=== PATIENT | female | born 1945 | race Caucasian/White ===

== ENCOUNTER → 2017-12-26 12:44 | Outpatient (CLI) | payer OTHER, SELFPAY ==
[2017-12-26 13:21] LABS: Add Manual Diff / Slide Review NO; Basophils Percent Auto 0.5 % (0-2); Eosinophils Percent Auto 0.8 % (2-4); Hematocrit 46.6 % (36-46); Hemoglobin 15.9 g/dL (12.0-16.0); Lymphocytes Percent Auto 21.2 % (25-40); Mean Corpuscular HGB Conc 34.2 % (30-36); Mean Corpuscular Hemoglobin 30.6 PG (26-34); Mean Corpuscular Volume 89.5 fL (80-100); Monocytes Percent Auto 8.3 % (3-14); Neutrophils Absolute Auto 6400 /uL (3000-5900); Neutrophils Percent Auto 69.2 % (50-75); Platelet Count 334 X10^3/uL (150-400); Red Cell Distribution Width 13.3 % (11.6-14.8); White Blood Cell Count 9.3 X10^3/uL (4.5-11.0)
[2017-12-26 13:37] LABS: Alanine Aminotransferase 26 IU/L (9-52); Albumin 4.7 g/dL (3.5-5.0); Albumin Globulin Ratio 1.5 (1.0-2.8); Alkaline Phosphatase 67 U/L (38-126); Aspartate Aminotransferase 19 IU/L (14-36); BUN Creatinine Ratio 24.3 (6-22); Bilirubin Total 0.5 mg/dL (0.2-1.3); Blood Urea Nitrogen 17 mg/dL (7-17); Calcium 9.8 mg/dL (8.4-10.2); Carbon Dioxide 31 mmol/L (22-32); Chloride 92 mmol/L (98-107); Estimated Glomerular Filt Rate > 60.0 mL/min (>60); Globulin 3.2 g/dL (1.7-4.1); Glucose 104 mg/dL (80-110); HEMOLYSIS < 15 (0-50); Potassium 4.3 mmol/L (3.4-5.1); Sodium 136 mmol/L (137-145); Total Protein 7.9 g/dL (6.3-8.2)
[2017-12-26 14:19] LABS: TSH w/ Reflex to FT4 0.78 uIU/mL (0.47-4.68)
== END ==
PROVIDERS: PCP Family Medicine; Visit Provider Family Medicine
DX: R53.83 Other fatigue (principal)
CPT/HCPCS: 36415; 80053; 84443; 85025

== ENCOUNTER → 2018-01-02 09:38 | Outpatient (CLI) | payer OTHER, SELFPAY ==
--- NOTE | 2018-01-02 09:41 | DI.CT.S_ITS ---
PROCEDURE: CT ABDOMEN PELVIS W CON INDICATIONS: ABDOMINAL PAIN TECHNIQUE: After the administration of oral and intravenous contrast, 5 mm thick sections acquired from the diaphragms to the symphysis. 5 mm thick coronal and sagittal reformats were performed. For radiation dose reduction, the following was used: automated exposure control, adjustment of mA and/or kV according to patient size. COMPARISON: [facility], CT, CT ABD PELVIS W CON, 08/26/2016, 4:43. FINDINGS: Image quality: Excellent. ABDOMEN: Lung bases: Lung bases are clear. Heart size is normal. Solid organs: Liver is normal in size and enhancement. Gallbladder is surgically absent. Previously seen extrahepatic biliary ductal dilatation has decreased slightly. Common bile duct now measures 12 mm short axis. There is a new 9 mm high density focus within the distal common bile duct. Pancreas enhances normally. New mild pancreatic ductal dilatation within the head and neck, measuring 4 mm in diameter. Spleen is normal in size and enhancement. No adrenal nodules. Kidneys are normal in size and enhancement, without hydronephrosis. Peritoneum and bowel: Stomach, small bowel, and colon loops are normal in caliber and wall thickness. No free fluid or air. Nodes and vessels: No retroperitoneal or mesenteric adenopathy. Aorta and inferior vena cava are normal in caliber. Moderate celiac artery origin stenosis. High grade superior mesenteric artery origin stenosis. Inferior mesenteric artery origin not well seen. Miscellaneous: No ventral hernias. PELVIS: Genitourinary: Bladder wall thickness is normal. Miscellaneous: No inguinal hernias or adenopathy. Bones: No suspicious bony lesions. No acute vertebral body compression fractures. Multilevel mild to moderate chronic appearing wedging within the lumbar and lower thoracic spine is present. IMPRESSION: 1. Findings suspicious for distal common bile duct calculus associated with new mild pancreatic ductal dilatation. Biliary ductal location is also present. ERCP could be performed for further assessment and treatment, if clinically indicated. 2. High-grade superior mesenteric artery origin stenosis. Inferior mesenteric artery not well-seen. 3. Findings discussed with Dr. Mcclellan on 01.02.18 at 1201 hrs. Dictated by: Nohemi Sprague M.D. on 01/02/2018 at 11:55 Approved by: Nohemi Sprague M.D. on 01/02/2018 at 12:02
== END ==
PROVIDERS: Family Provider Family Medicine; PCP Family Medicine; Visit Provider Family Medicine
DX: R10.9 Unspecified abdominal pain (principal); K55.1 Chronic vascular disorders of intestine
CPT/HCPCS: 74177; Q9967

== ENCOUNTER → 2018-04-07 10:30 | Outpatient (CLI) | payer OTHER, SELFPAY ==
[2018-04-07 12:58] LABS: Estimated Glomerular Filt Rate > 60.0 mL/min (>60)
== END ==
PROVIDERS: Family Provider Family Medicine; PCP Family Medicine; Visit Provider Internal Medicine Gastroenterology
DX: R19.8 Other specified symptoms and signs involving the digestive system and abdomen (principal)
CPT/HCPCS: 36415; 82565

== ENCOUNTER → 2018-05-07 11:18 | Outpatient (CLI) | payer OTHER, SELFPAY ==
[2018-05-07 12:57] LABS: Alanine Aminotransferase 73 IU/L (9-52); Albumin 4.5 g/dL (3.5-5.0); Albumin Globulin Ratio 1.8 (1.0-2.8); Alkaline Phosphatase 93 U/L (38-126); Aspartate Aminotransferase 23 IU/L (14-36); Bilirubin Total 0.6 mg/dL (0.2-1.3); Bilirubin Unconjugated 0.3 mg/dL (0.0-1.1); Globulin 2.5 g/dL (1.7-4.1); HEMOLYSIS < 15 (0-50)
== END ==
PROVIDERS: Family Provider Family Medicine; PCP Family Medicine; Visit Provider Internal Medicine Gastroenterology
DX: R94.5 Abnormal results of liver function studies (principal)
CPT/HCPCS: 36415; 80076

== ENCOUNTER → 2018-07-23 14:43 | Outpatient (CLI) | payer OTHER, SELFPAY ==
--- NOTE | 2018-07-23 | DI.RAD.S_ITS ---
PROCEDURE: XR CHEST 2V INDICATIONS: DYSPENEA TECHNIQUE: 2 views of the chest were acquired. COMPARISON: [facility], CR, XR CHEST 1VW (PORTABLE), 08/31/2016, 5:19. [facility], CR, XR CHEST 1VW (PORTABLE), 09/02/2016, 4:26. [facility], CR, XR CHEST 1VW (PORTABLE), 09/04/2016, 4:41. [facility], CR, XR CHEST 1VW (PORTABLE), 09/05/2016, 5:09. FINDINGS: Surgical changes and devices: None. Lungs and pleura: There is chronic left hemidiaphragmatic elevation. There is left basilar atelectasis. Diffuse interstitial prominence. Possible small left pleural effusion. No pneumothorax. Mediastinum: Mediastinal contours are normal. Heart size is normal. Bones and chest wall: No suspicious bony abnormalities. Soft tissues appear unremarkable. There is osteopenia. Mild compression fractures are noted in the lower thoracic and upper lumbar spine. IMPRESSION: 1. Chronic interstitial lung disease is suspected with diffuse interstitial prominence. 2. Left basilar atelectasis. 3. Possible small left perfusion. Dictated by: Yumi Hernández M.D. on 07/23/2018 at 17:12 Approved by: Yumi Hernández M.D. on 07/23/2018 at 17:16
[2018-07-23 17:18] LABS: PCO2 ABG 37.3 mmHg (35-45); pH ABG 7.43 (7.35-7.45)
[2018-07-23 17:19] LABS: Fractionated Inspired Oxygen 0.21; HCO3 ABG 25 mmol/L (22-26); Oxygen Saturation ABG 97 % (95-100); PO2 ABG 88 mmHg (80-100); TCO2 ABG 26 mmol/L (21-31)
--- NOTE | 2018-07-24 16:06 | PM.PFT.1 ---
Pulmonary Function Test Referral & Results Date Patient Seen: 07/23/18 Requesting provider: Chris Cisse Indication: COPD Results: The spirometry demonstrates an FVC of 1.82 L which is 65% of predicted. The FEV1 was measured at 1.31 L which is 62% of predicted. The FEV1/FVC ratio was 72 which is 95% of predicted. No further testing was performed as patient refused the rest of the testing protocol ABG on room air showed a pH of 7. 4 3, pCO2 37.2, PO2 of 88 Interpretation: Patient's spirometry demonstrates obstructive lung disease. No other information is available
== END ==
PROVIDERS: PCP Internal Medicine; Visit Provider Internal Medicine
DX: R06.00 Dyspnea, unspecified (principal)
CPT/HCPCS: 36600; 71046; 82805; 94010

== ENCOUNTER → 2019-06-03 11:49 | Outpatient (CLI) | payer OTHER, SELFPAY ==
--- NOTE | 2019-06-03 11:50 | DI.MG.S_ITS ---
BILATERAL DIGITAL SCREENING MAMMOGRAM 3D/2D WITH CAD: 06/03/2019 CLINICAL: Routine screening. Comparison is made to exam dated: 07/27/2008 [facility]. The tissue of both breasts is heterogeneously dense. This may lower the sensitivity of mammography. Current study was also evaluated with a Computer Aided Detection (CAD) system. There are benign vascular calcifications in both breasts. No significant masses, calcifications, or other findings are seen in either breast. There has been no significant interval change. IMPRESSION: There is no mammographic evidence of malignancy. A 1 year screening mammogram is recommended. This exam was interpreted at Station ID: [id number]. NOTE: For mammograms, a report in lay terms will be sent to the patient. Approximately 15% of breast malignancies will not be visualized mammographically. In the management of a palpable breast mass, a negative mammogram must not discourage biopsy of a clinically suspicious lesion. Electronically Signed By: Franky sandoval/alexis:06/03/2019 14:01:56 letter sent: Normal Exam ACR BI-RADS Category 2: Benign Finding(s) 3342F
--- NOTE | 2019-06-03 11:50 | DI.US.S_ITS ---
PROCEDURE: US ABDOMEN LIMITED INDICATIONS: LUQ pain TECHNIQUE: Real-time focused scanning was performed of the abdomen, with image documentation. COMPARISON: None. FINDINGS: The spleen is not visualized. The kidney is grossly normal. Pancreas not visualized. IMPRESSION:. Spleen is not visualized and no left upper quadrant abnormality is seen. If pain persists, consider CT for further assessment. Dictated by: Forrest BRYAN Interpreted: Fredrick Mckeon MD on 06/03/2019 at 14:55 Approved by: Fredrick Mckeon M.D. on 06/03/2019 at 17:23
== END ==
PROVIDERS: PCP Nurse Practitioner; Visit Provider Nurse Practitioner
DX: Z12.31 Encounter for screening mammogram for malignant neoplasm of breast (principal); R10.12 Left upper quadrant pain; Z13.820 Encounter for screening for osteoporosis; M81.0 Age-related osteoporosis without current pathological fracture; Z78.0 Asymptomatic menopausal state; F17.200 Nicotine dependence, unspecified, uncomplicated; Z82.62 Family history of osteoporosis
CPT/HCPCS: 76705; 77063; 77067; 77080

== ENCOUNTER → 2020-02-25 12:41 | Outpatient (CLI) | payer OTHER, SELFPAY ==
--- NOTE | 2020-02-25 12:51 | DI.CT.S_ITS ---
PROCEDURE: CT HEAD/BRAIN WO CON INDICATIONS: Slurred speech, history of stroke TECHNIQUE: Noncontrast 4.5 mm thick angled axial sections acquired from the foramen magnum to the vertex, with coronal and sagittal reformats. For radiation dose reduction, the following was used: automated exposure control, adjustment of mA and/or kV according to patient size. COMPARISON: MR, MR STROKE PROTOCOL, 09/05/2016, 12:50. [facility], MR, STROKE PROTOCOL, 09/10/2013, 11:38. CT, CT BRAIN WO CON, 09/06/2016, 19:56. CT, CT BRAIN WO CON, 09/03/2016, 18:02. [facility], CT, HEAD WITHOUT CONTRAST, 09/09/2013, 18:18. FINDINGS: Image quality: Excellent. CSF spaces: Basal cisterns are patent. No extra-axial fluid collections. The ventricles are symmetric in size and shape. Brain: No intracranial bleeds or masses. There is moderate cerebral volume loss for age, with resultant ventricular and sulcal prominence. There are severe periventricular and deep white matter chronic small vessel ischemic changes. Suspect old lacunar infarcts in left caudate, right putamen and thalami bilaterally. There is intracranial internal carotid artery atherosclerosis. Skull and face: Calvarium and visualized facial bones appear intact, without suspicious lesions. Sinuses: Visualized sinuses and mastoids are clear. IMPRESSION: 1. No acute intracranial abnormalities. 2. Moderate cerebral volume loss and severe chronic microvascular ischemic changes. Dictated by: Yumi Hernández M.D. on 02/25/2020 at 13:06 Approved by: Yumi Hernández M.D. on 02/25/2020 at 13:13
== END ==
PROVIDERS: PCP Nurse Practitioner; Referring Provider Nurse Practitioner; Visit Provider Nurse Practitioner
DX: R47.81 Slurred speech (principal); I69.30 Unspecified sequelae of cerebral infarction
CPT/HCPCS: 70450

== ENCOUNTER → 2020-10-24 11:09 | Outpatient (CLI) | payer OTHER, SELFPAY ==
[2020-10-24 13:31] LABS: HEMOLYSIS < 15 (0-50); Potassium 4.5 mmol/L (3.4-5.1)
[2020-10-24 13:32] LABS: Alanine Aminotransferase 10 IU/L (<35); Albumin 4.6 g/dL (3.5-5.0); Albumin Globulin Ratio 1.6 (1.0-2.8); Alkaline Phosphatase 63 U/L (38-126); Aspartate Aminotransferase 19 IU/L (14-36); BUN Creatinine Ratio 21.1 (6-22); Bilirubin Total 0.5 mg/dL (0.2-1.3); Blood Urea Nitrogen 19 mg/dL (7-17); Calcium 9.9 mg/dL (8.4-10.2); Carbon Dioxide 27 mmol/L (22-32); Chloride 97 mmol/L (98-107); Estimated Glomerular Filt Rate > 60.0 mL/min (>60); Globulin 2.8 g/dL (1.7-4.1); Glucose 78 mg/dL (80-110); Sodium 135 mmol/L (137-145); Total Protein 7.4 g/dL (6.3-8.2)
[2020-10-24 16:09] LABS: Creatinine Urine Random 28.8 mg/dL
[2020-10-24 16:10] LABS: Microalbumi Creatinin Ratio Ur 20.8 ug/mg CR (<30); Microalbumin Urine Random 0.6 mg/dL (0-1.6)
== END ==
PROVIDERS: PCP Nurse Practitioner; Referring Provider Nurse Practitioner; Visit Provider Nurse Practitioner
DX: I10 Essential (primary) hypertension (principal); Z79.899 Other long term (current) drug therapy
CPT/HCPCS: 36415; 80053; 82043; 82570

== ENCOUNTER → 2020-11-08 15:26 | Outpatient (CLI) | payer MEDICARE, SELFPAY ==
[2020-11-08] MEDS: COVID-19 VACC #1, MRNA(MOD) 100 MCG/0.5 ML VIAL IM (15:36)
== END ==
PROVIDERS: PCP Nurse Practitioner; Visit Provider Internal Medicine
DX: Z23 Encounter for immunization (principal)
CPT/HCPCS: 0011A; 91301

== ENCOUNTER → 2020-12-06 13:03 | Outpatient (CLI) | payer MEDICARE, SELFPAY ==
[2020-12-06] MEDS: COVID-19 VACC #2, MRNA(MOD) 100 MCG/0.5 ML VIAL IM (13:08)
== END ==
PROVIDERS: PCP Nurse Practitioner; Visit Provider Internal Medicine
DX: Z23 Encounter for immunization (principal)
CPT/HCPCS: 0012A; 91301

== ENCOUNTER → 2021-05-25 10:52 | Outpatient (CLI) | payer MEDICARE, SELFPAY ==
[2021-05-25] MEDS: COVID-19 VACC #3, MRNA(MOD) 50 MCG/0.25 ML VIAL IM (10:59)
== END ==
PROVIDERS: PCP Nurse Practitioner; Visit Provider Internal Medicine
DX: Z23 Encounter for immunization (principal)
CPT/HCPCS: 0013A; 91301

== ENCOUNTER → 2021-11-12 09:19 | Outpatient (CLI) | payer OTHER, SELFPAY ==
[2021-11-12 10:30] LABS: Alanine Aminotransferase 8 IU/L (<35); Albumin 4.5 g/dL (3.5-5.0); Albumin Globulin Ratio 1.6 (1.0-2.8); Alkaline Phosphatase 43 U/L (38-126); Aspartate Aminotransferase 18 IU/L (14-36); BUN Creatinine Ratio 19.5 (6-22); Bilirubin Total 0.9 mg/dL (0.2-1.3); Blood Urea Nitrogen 15 mg/dL (7-17); Calcium 9.1 mg/dL (8.4-10.2); Carbon Dioxide 31 mmol/L (22-32); Chloride 101 mmol/L (98-107); Estimated Glomerular Filt Rate > 60 mL/min (>60); Globulin 2.9 g/dL (1.7-4.1); Glucose 98 mg/dL (80-110); HEMOLYSIS < 15 (0-50); Potassium 4.3 mmol/L (3.4-5.1); Sodium 138 mmol/L (137-145); Total Protein 7.4 g/dL (6.3-8.2)
[2021-11-12 11:05] LABS: Free T3, Triiodothyronine Free 3.33 pg/mL (2.77-5.27); Free T4, Direct Thyroxine 1.65 ng/dL (0.78-2.19)
[2021-11-12 11:19] LABS: Thyroid Stimulating Hormone 1.05 uIU/mL (0.47-4.68)
== END ==
PROVIDERS: PCP Nurse Practitioner; Referring Provider Nurse Practitioner; Visit Provider Nurse Practitioner
DX: I10 Essential (primary) hypertension (principal); I65.22 Occlusion and stenosis of left carotid artery; J44.9 Chronic obstructive pulmonary disease, unspecified; K59.09 Other constipation
CPT/HCPCS: 36415; 80053; 84439; 84443; 84481

== ENCOUNTER → 2022-03-22 13:02 | Outpatient (ROUT) | payer OTHER, SELFPAY ==
[2022-03-22 13:13] LABS: Add Manual Diff / Slide Review NO; Basophils Absolute Auto 0 /uL (0-100); Basophils Percent Auto 0.4 % (0-2); Eosinophils Absolute Auto 100 /uL (0-450); Eosinophils Percent Auto 1.7 % (2-4); Hematocrit 48.1 % (36-46); Hemoglobin 16.1 g/dL (12.0-16.0); Lymphocytes Absolute Auto 1800 /uL (1100-4500); Lymphocytes Percent Auto 22.8 % (25-40); Mean Corpuscular HGB Conc 33.4 % (30-36); Mean Corpuscular Hemoglobin 29.1 PG (26-34); Mean Corpuscular Volume 87.2 fL (80-100); Monocytes Absolute Auto 600 /uL (0-900); Monocytes Percent Auto 7.9 % (3-14); Neutrophils Absolute Auto 5200 /uL (1500-7000); Neutrophils Percent Auto 67.2 % (50-75); Platelet Count 333 X10^3/uL (150-400); Red Blood Cell Count 5.51 X10^6/uL (4.0-5.2); Red Cell Distribution Width 14.5 % (11.6-14.8); White Blood Cell Count 7.7 X10^3/uL (4.5-11.0)
[2022-03-22 13:29] LABS: Alanine Aminotransferase 8 IU/L (<35); Albumin 4.1 g/dL (3.5-5.0); Albumin Globulin Ratio 1.4 (1.0-2.8); Alkaline Phosphatase 54 U/L (38-126); Aspartate Aminotransferase 18 IU/L (14-36); BUN Creatinine Ratio 18.5 (6-22); Bilirubin Total 0.4 mg/dL (0.2-1.3); Blood Urea Nitrogen 17 mg/dL (7-17); Calcium 9.5 mg/dL (8.4-10.2); Carbon Dioxide 30 mmol/L (22-32); Chloride 98 mmol/L (98-107); Estimated Glomerular Filt Rate > 60 mL/min (>60); Glucose 92 mg/dL (80-110); HEMOLYSIS < 15 (0-50); Potassium 4.6 mmol/L (3.4-5.1); Sodium 135 mmol/L (137-145); Total Protein 7.1 g/dL (6.3-8.2)
[2022-03-22 13:46] LABS: Free T3, Triiodothyronine Free 3.76 pg/mL (2.77-5.27); Free T4, Direct Thyroxine 1.44 ng/dL (0.78-2.19)
[2022-03-22 13:59] LABS: Thyroid Stimulating Hormone 1.26 uIU/mL (0.47-4.68)
[2022-03-22 14:58] LABS: Hep C Virus Ab w/Reflex Quant NEGATIVE s/c (NEGATIVE)
== END ==
PROVIDERS: PCP Nurse Practitioner; Visit Provider Nurse Practitioner
DX: R06.09 Other forms of dyspnea (principal); R53.1 Weakness; K59.09 Other constipation; I10 Essential (primary) hypertension; Z11.59 Encounter for screening for other viral diseases
CPT/HCPCS: 80053; 84439; 84443; 84481; 85025; 86803

== ENCOUNTER 2022-03-30 14:53 | Emergency (ER) | payer OTHER, SELFPAY ==
[2022-03-30] VITALS (9 sets, daily range): BP systolic 164–197; BP diastolic 94–118; PULSE 78–100; RESP 16–20; TEMP 37.2; O2SAT 91–94
--- NOTE | 2022-03-30 14:57 | ED.GENADULT ---
HPI - General Adult General Chief complaint: Fall Stated complaint: glf Time Seen by Provider: 03/30/22 14:53 Source: patient and EMS Mode of arrival: EMS Limitations: no limitations History of Present Illness HPI narrative: Patient is a 76-year-old female. Has a history of COPD. Does use oxygen at home. Also uses a walker. Not on anticoagulation. She states that she tripped over her walker falling forward and hitting her left side on her chair. She did not hit her head. No loss of consciousness. She does have a history of high blood pressure. She contacted EMS because of the fall and also the discomfort that she was in. She was found to be very hypertensive. She denies chest pain. No shortness of breath. No other injuries from the fall. No interventions prior to arrival. Related Data Home Medications Medication Instructions Recorded Confirmed soybean, fermented 50 mg capsule mg PO 11/12/21 02/19/22 (Nattokinase) Previous Rx's Medication Instructions Recorded Disabled Parking Permit ea ##1 11/25/16 senna leaf See Rx Instructions PO .COMPLEX 04/22/19 #454 grams varicella-zoster glycoE [id number] 0.5 ml IM ONCE #1 ea 05/06/19 adj(PF) 50 mcg/0.5 mL IM susp, kit (Shingrix (PF)) inhalational spacing device #1 ea 06/07/19 (Aerochamber MV spacer) calcium carbonate 300 mg (750 mg) 600 mg PO BID #90 tabs 11/01/20 chewable tablet (Antacid Extra Strength (calcium carb)) cholecalciferol (vitamin D3) 50 50 mcg PO DAILY #90 caps 11/01/20 mcg (2,000 unit) capsule alendronate 70 mg tablet (Fosamax) 70 mg PO QWEEK #12 tabs 11/12/21 amlodipine 5 mg tablet 5 mg PO BID #180 tabs 11/12/21 lisinopril 20 mg tablet 40 mg PO DAILY #180 tabs 11/12/21 omeprazole 20 mg capsule,delayed 20 mg PO DAILY #90 caps 11/12/21 release food supplemt, lactose-reduced See Rx Instructions .Route 02/19/22 (Ensure oral liquid) .COMPLEX #17,064 mL hydrocodone 5 mg-acetaminophen 325 1 tab PO Q6H PRN pain #14 tabs 03/30/22 mg tablet Allergies Allergy/AdvReac Type Severity Reaction Status Date / Time hydromorphone [HYDROMORPHONE] AdvReac Unknown Hallucinati Verified 03/30/22 16:09 ons Review of Systems Constitutional Constitutional: Reports system reviewed and no additional complaints, except as documented Cardiovascular Cardiovascular: Reports system reviewed and no additional complaints, except as documented Respiratory Respiratory: Reports system reviewed and no additional complaints, except as documented Gastrointestinal Gastrointestinal: Reports system reviewed and no additional complaints, except as documented and Reports abdominal pain Musculoskeletal Musculoskeletal: Reports system reviewed and no additional complaints, except as documented Integumentary/Breasts Skin/Breast: Reports system reviewed and no additional complaints, except as documented Neurologic Neurologic: Reports system reviewed and no additional complaints, except as documented Hematologic/Lymphatic On Anticoagulants: No 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) Osteopenia Osteoporosis Perforated viscus (09/03/16) Pure hypercholesterolemia (11/23/15) Sebaceous cyst Seborrheic keratosis (11/23/15) Seizure disorder (09/30/16) Tobacco abuse Urinary frequency Vitamin B12 deficiency (Unknown) Surgical History Anesthesia History of colonoscopy History of partial hysterectomy (~1985) Status post cholecystectomy Family History Mother Stroke Hypertension Alcoholism Seizure Father Alcoholism Sister Cancer Social History Smoking Status: Current every day smoker alcohol intake: current substance use type: does not use Smoking Status: Current every day smoker Exam Initial Vital Signs Initial Vital Signs: Vital Signs Pulse Rate 85 03/30/22 14:57 Pulse Oximetry 92 03/30/22 14:57 Const General: cooperative and comfortable HENMT Head: normal to inspection and normocephalic Chest Other: Left-sided lateral and posterior rib discomfort. Resp Other: Coarse breath sounds bilaterally however no wheezing. Cardio Rate: regular rate Skin General: no rashes or lesions noted Neuro General: patient alert, patient awake and moves all extremities Extrem Other: Pelvis stable, unremarkable exam of upper and lower extremities. Psych Appearance: grossly normal and well kempt Course Orders Ordered: ED Orders 03/30/22 15:04 XR ribs LT min 3V w CXR1V Stat Discontinued Medications Hydrocodone Bitart/Acetaminophen (Hydrocodone/Acet 5/325 Tablet) 1 tab PO NOW ONE Stop: 03/30/22 16:08 Last Admin: 03/30/22 16:13 Dose: 1 tab Documented By: RAINA Vital Signs Vital signs: Vital Signs - 8 hr 03/30/22 14:58 03/30/22 14:57 03/30/22 14:58 Temperature 98.9 F Pulse Rate 88 85 Respiratory Rate 16 Blood Pressure 180/105 H 180/105 H Pulse Oximetry 93 92 Oxygen Delivery Method Room Air 03/30/22 14:58 03/30/22 15:00 03/30/22 15:00 Temperature Pulse Rate 84 78 Respiratory Rate Blood Pressure 173/95 H Pulse Oximetry 92 93 Oxygen Delivery Method 03/30/22 15:31 03/30/22 15:56 03/30/22 15:56 Temperature Pulse Rate 84 83 Respiratory Rate Blood Pressure 197/118 H Pulse Oximetry 91 92 Oxygen Delivery Method 03/30/22 15:58 03/30/22 15:58 03/30/22 16:00 Temperature Pulse Rate 81 Respiratory Rate Blood Pressure 178/103 H 167/97 H Pulse Oximetry 94 Oxygen Delivery Method 03/30/22 16:00 Temperature Pulse Rate 86 Respiratory Rate Blood Pressure Pulse Oximetry 93 Oxygen Delivery Method Medical Decision Making Imaging Data rib x-ray: Radiologist's Impression: [address] [address] XRay Report Signed Patient: Niecy Rivera MR#: [id number] : 1945 Acct:[id number] Age/Sex: 76 / F Date of Service: 03/30/22 Loc: ED Accession Number: [id number] ?? Procedure: XR ribs LT min 3V w CXR1V Ordering Provider: Emmett Howell D.O. PROCEDURE:? XR RIBS LT MIN 3V W CXR1V ? INDICATIONS:? fall w L lat/poterior rib pain ? TECHNIQUE:? 3 views of the left ribs were acquired, along with a single view chest.? ? COMPARISON:? None. ? FINDINGS:? ? Study is limited by motion artifact and patient positioning ? Surgical changes and devices:? None.? ? Bones and chest wall:? Generalized decrease in osseous mineralization noted..? Probable nondisplaced fracture of the left lateral 10th rib.? No pneumothorax ? Lungs and pleura:? No pleural effusions or pneumothorax.? Lungs appear clear.? ? Mediastinum:? Mediastinal contours appear normal.? Heart size is normal.? ? IMPRESSION:? ? Probable nondisplaced fracture of the left lateral 10th rib.? No pneumothorax ? ? ? Approved by: Daniel Crespo M.D. on 03/30/2022 at 15:24? [facility] Narrative Medical decision making narrative: Patient is at her baseline respiratory status. No fevers. Clear lungs. X-ray shows probable 10th rib fracture which does correspond to the site of her discomfort. I did discuss this with her. She is no abdominal tenderness. I have low suspicion for splenic or kidney injury. Discharged home with symptom control. We discussed very strict return precautions. She expressed understanding and agreement. Discharge Plan Departure Patient Disposition: Home Clinical Impression: Closed rib fracture Instructions: DI for Rib Fracture Activity Restrictions/Additional Instructions: The x-ray today did show a left sided rib fracture which does correspond to where you were having discomfort. A prescription for pain medication was sent to [facility] in [place]. Take it as directed. You will have discomfort especially with very deep breathing and coughing. You can hold the area to try to help with this. If you start to have fevers or worsening shortness of breath please return to the emergency department. Prescriptions: New hydrocodone-acetaminophen 5-325 mg tablet 1 tab PO Q6H PRN (Reason: pain) Qty: 14 0RF No Action Disabled Parking Permit Qty: 1 0RF senna leaf Tea See Rx Instructions PO .COMPLEX Qty: 454 11RF Rx Instructions: 1 tea bag immersed in warm water PO daily or every other day, goal 2 BMs/week (DME) Aerochamber MV Spacer See Rx Instructions .ROUTE .MEDSUPPLY Qty: 1 0RF Rx Instructions: As directed Shingrix (PF) 50 mcg/0.5 mL suspension for reconstitution 0.5 ml IM ONCE Qty: 1 0RF Rx Instructions: as a single dose calcium carbonate [Antacid Ext Str (calcium carb)] 300 mg (750 mg) tablet,chewable 600 mg PO BID Qty: 90 0RF Rx Instructions: Take 2 tabs with Vitamin D3 2000iu twice daily for bone health cholecalciferol (vitamin D3) 50 mcg (2,000 unit) capsule 50 mcg PO DAILY Qty: 90 0RF Rx Instructions: Take 2000iu with your Tums tablets twice per day for bone health alendronate [Fosamax] 70 mg tablet 70 mg PO QWEEK Qty: 12 3RF amlodipine 5 mg tablet 5 mg PO BID Qty: 180 3RF Rx Instructions: Take 1 tab twice per day for hypertension. lisinopril 20 mg tablet 40 mg PO DAILY Qty: 180 3RF Rx Instructions: Take 2 tabs by mouth each night at bedtime for hypertension omeprazole 20 mg capsule,delayed release(DR/EC) 20 mg PO DAILY Qty: 90 3RF Rx Instructions: Take 1 capsule/tab by mouth daily Nattokinase 50 mg capsule PO Ensure Liquid See Rx Instructions .ROUTE .COMPLEX Qty: 14249 11RF Rx Instructions: Please dispense 3 cases per month to patient x one year Referrals: Dasia Peters ARNP [Primary Care Provider] -
--- NOTE | 2022-03-30 15:04 | DI.RAD.S_ITS ---
PROCEDURE: XR RIBS LT MIN 3V W CXR1V INDICATIONS: fall w L lat/poterior rib pain TECHNIQUE: 3 views of the left ribs were acquired, along with a single view chest. COMPARISON: None. FINDINGS: Study is limited by motion artifact and patient positioning Surgical changes and devices: None. Bones and chest wall: Generalized decrease in osseous mineralization noted.. Probable nondisplaced fracture of the left lateral 10th rib. No pneumothorax Lungs and pleura: No pleural effusions or pneumothorax. Lungs appear clear. Mediastinum: Mediastinal contours appear normal. Heart size is normal. IMPRESSION: Probable nondisplaced fracture of the left lateral 10th rib. No pneumothorax Approved by: Daniel Crespo M.D. on 03/30/2022 at 15:24
[2022-03-30] MEDS: HYDROCODONE/ACET 5/325 TABLET 1 TAB PO (16:13)
== END 2022-03-30 17:04 | disposition home or self-care (01) ==
PROVIDERS: Emergency Provider Emergency Medicine; PCP Nurse Practitioner
DX: S22.32XA Fracture of one rib, left side, initial encounter for closed fracture (principal); W19.XXXA Unspecified fall, initial encounter
CPT/HCPCS: 71101; 99283; 99284

== ENCOUNTER 2022-04-04 11:07 | Observation (INO) | payer OTHER, SELFPAY ==
[2022-04-04] VITALS (17 sets, daily range): BP systolic 95–161; BP diastolic 59–113; PULSE 83–114; RESP 14–34; TEMP 35.7–37.1; O2SAT 88–93; BMI 14.1
--- NOTE | 2022-04-04 11:22 | DI.RAD.S_ITS ---
PROCEDURE: XR CHEST 1V INDICATIONS: suspected sepsis TECHNIQUE: One view of the chest was acquired. COMPARISON: [facility], CR, XR CHEST 2V, 07/23/2018, 14:46. FINDINGS: Surgical changes and devices: None. Lungs and pleura: Moderate left pleural effusion associated compressive atelectasis present. Right lung and pleural space clear Mediastinum: Mediastinal contours appear normal. Heart size is enlarged. Atherosclerotic vascular calcification noted in the aortic arch. Bones and chest wall: Generalized decrease in osseous mineralization noted. IMPRESSION: Moderate left pleural effusion with associated atelectasis and or infiltrate. Hyperinflation and chronic interstitial changes Aortic atherosclerosis and osteopenia Approved by: Daniel Crespo M.D. on 04/04/2022 at 11:34
[2022-04-04 11:35] LABS: Add Manual Diff / Slide Review NO; Basophils Absolute Auto 100 /uL (0-100); Basophils Percent Auto 0.4 % (0-2); Eosinophils Absolute Auto 0 /uL (0-450); Hematocrit 45.6 % (36-46); Hemoglobin 15.2 g/dL (12.0-16.0); Lymphocytes Absolute Auto 600 /uL (1100-4500); Lymphocytes Percent Auto 3.4 % (25-40); Mean Corpuscular HGB Conc 33.4 % (30-36); Mean Corpuscular Hemoglobin 29.2 PG (26-34); Mean Corpuscular Volume 87.3 fL (80-100); Monocytes Absolute Auto 1000 /uL (0-900); Monocytes Percent Auto 5.8 % (3-14); Neutrophils Absolute Auto 15900 /uL (1500-7000); Neutrophils Percent Auto 90.4 % (50-75); Platelet Count 325 X10^3/uL (150-400); Red Blood Cell Count 5.22 X10^6/uL (4.0-5.2); Red Cell Distribution Width 14.1 % (11.6-14.8); White Blood Cell Count 17.6 X10^3/uL (4.5-11.0)
[2022-04-04 11:39] LABS: Alanine Aminotransferase 22 IU/L (<35); Albumin 4.1 g/dL (3.5-5.0); Albumin Globulin Ratio 1.1 (1.0-2.8); Alkaline Phosphatase 85 U/L (38-126); Aspartate Aminotransferase 27 IU/L (14-36); BUN Creatinine Ratio 39.7 (6-22); Blood Urea Nitrogen 29 mg/dL (7-17); Calcium 9.4 mg/dL (8.4-10.2); Carbon Dioxide 31 mmol/L (22-32); Chloride 99 mmol/L (98-107); Estimated Glomerular Filt Rate > 60 mL/min (>60); Globulin 3.8 g/dL (1.7-4.1); Glucose 126 mg/dL (80-110); HEMOLYSIS < 15 (0-50); Lipase 32 U/L (23-300); Potassium 4.3 mmol/L (3.4-5.1); Sodium 139 mmol/L (137-145); Total Protein 7.9 g/dL (6.3-8.2)
[2022-04-04 11:40] LABS: Lactate (Lactic Acid) 1.4 mmol/L (0.7-2.1)
[2022-04-04 11:56] LABS: Procalcitonin 0.12 ng/mL (<0.5)
[2022-04-04] MEDS: SODIUM CHLORIDE 0.9% 1,000 ML 1000 ML IV (11:58)
--- NOTE | 2022-04-04 12:18 | DI.CT.S_ITS ---
PROCEDURE: CT CHEST ABD PEL WO CON INDICATIONS: pneumonia vs effusion , left rib fracture, distended abd TECHNIQUE: After the administration of oral contrast, 5 mm thick sections acquired from the lung apices to the symphysis pubis. 5 mm thick coronal and sagittal reformats acquired, with additional 7 mm coronal MIP reformats through the lungs. For radiation dose reduction, the following was used: automated exposure control, adjustment of mA and/or kV according to patient size. COMPARISON: [facility], CR, XR CHEST 1V, 04/04/2022, 11:22. FINDINGS: Image quality: Excellent. CHEST: Lungs and pleura: The bones have centrilobular emphysematous changes. There is dependent atelectasis in the left upper lobe and left lower lobe. No pleural effusions or pneumothorax. Mucosal plugging in the left mainstem bronchus is seen. Mediastinum: Heart size is normal. No pericardial effusion. The coronary arteries have atherosclerotic calcifications. No mediastinal adenopathy by size criteria. The aorta has atherosclerosis with no aneurysmal dilatation. Esophagus is normal in caliber. No hiatal hernia. Chest wall: No axillary or supraclavicular adenopathy by size criteria. Thyroid gland is normal . ABDOMEN: Solid organs: Liver: The liver has no mass or intrahepatic biliary ductal dilatation. Biliary: Status post cholecystectomy. Pancreas: The pancreas has no mass or ductal dilatation. There is no surrounding inflammation. Spleen: Normal size. There are no masses. Adrenals: No hypertrophy or nodules. Kidneys: No obstructive calculus or hydronephrosis. No solid mass. No cystic mass. Bowel: The distal esophagus and stomach are normal. The small bowel has a normal caliber and appearance. The large bowel has bowel increased stool throughout consistent with constipation. The left and sigmoid colon have diverticulosis with no evidence of acute diverticulitis.. The appendix is normal. No free fluid or air. Nodes and vessels: No retroperitoneal or mesenteric adenopathy by size criteria. The aorta and iliac arteries have severe atherosclerotic calcifications. There is aneurysmal dilatation of the proximal infrarenal aorta measuring 3.3 cm. Abdominal wall: No abdominal wall mass or hernia. PELVIS: Genitourinary: The bladder has no wall thickening or mass. No bladder calcifications. BONES: The central height loss of multiple lower thoracic and lumbar vertebral bodies are seen consistent with compression fractures of indeterminate age. The bones are demineralized. IMPRESSION: 1. Displaced fractures of the left posterior 11th and 12th ribs. 2. Dependent atelectasis in the left upper lobe and left lower lobe likely related to mucosal plugging in the left mainstem bronchus. 3. Severe constipation. 4. Multilevel central height loss of multiple vertebral bodies of indeterminate age. 5. Aneurysmal dilatation of the proximal infrarenal aorta measuring 3.3 cm with severe atherosclerotic calcifications. Dictated by: Felix Hoffmann M.D. on 04/04/2022 at 13:44 Approved by: Felix Hoffmann M.D. on 04/04/2022 at 13:55
--- NOTE | 2022-04-04 12:20 | ED_ITS ---
HPI - Fall <Radha Whelan [facility] - Last Filed: 04/04/22 15:00> General Chief Complaint: Fall Stated Complaint: GLF from bed Time Seen by Provider: 04/04/22 11:45 Source: patient and EMS Mode of arrival: EMS History of Present Illness HPI Narrative: This is a 76-year-old female presents to the emergency department after she states she rolled out of bed this morning and had a fall on 03/30/22 at home with a left rib fracture. She was seen in the emergency department that day and her daughter sent her in today reporting that patient needs more help at home. Patient states that she has been doing okay, does not report fevers, chills she states that she needs help from somebody who can cook for her. She states that she has meals on wheels already, denies nausea, vomiting, chest pain, difficulty breathing. She states that she has left-sided rib pain. She ruled out of bed because she states her bed is at a slant and it happened quickly, she denies hitting her head or having any loss of consciousness. She states that she wears oxygen at night and does not measure how much. She denies any difficulty walking. She denies loss of consciousness, she denies new weakness or new shortness of breath. Autumn from social work spoke with patient's primary care provider who is Dasia jeong's RN who states that patient has 19 steps in her home, she can only walk 3 steps at this time and since her fall she has not been able to complete ADLs or take care of herself at home which involves heating up her food even though it has been delivered from [employer]. Related Data Home Medications Medication Instructions Recorded Confirmed soybean, fermented 50 mg capsule mg PO 11/12/21 02/19/22 (Nattokinase) Previous Rx's Medication Instructions Recorded Disabled Parking Permit ea ##1 11/25/16 senna leaf See Rx Instructions PO .COMPLEX 04/22/19 #454 grams varicella-zoster glycoE [id number] 0.5 ml IM ONCE #1 ea 05/06/19 adj(PF) 50 mcg/0.5 mL IM susp, kit (Shingrix (PF)) inhalational spacing device #1 ea 06/07/19 (Aerochamber MV spacer) calcium carbonate 300 mg (750 mg) 600 mg PO BID #90 tabs 11/01/20 chewable tablet (Antacid Extra Strength (calcium carb)) cholecalciferol (vitamin D3) 50 50 mcg PO DAILY #90 caps 11/01/20 mcg (2,000 unit) capsule alendronate 70 mg tablet (Fosamax) 70 mg PO QWEEK #12 tabs 11/12/21 amlodipine 5 mg tablet 5 mg PO BID #180 tabs 11/12/21 lisinopril 20 mg tablet 40 mg PO DAILY #180 tabs 11/12/21 omeprazole 20 mg capsule,delayed 20 mg PO DAILY #90 caps 11/12/21 release food supplemt, lactose-reduced See Rx Instructions .Route 02/19/22 (Ensure oral liquid) .COMPLEX #17,064 mL hydrocodone 5 mg-acetaminophen 325 1 tab PO Q6H PRN pain #14 tabs 03/30/22 mg tablet Allergies Allergy/AdvReac Type Severity Reaction Status Date / Time hydromorphone [HYDROMORPHONE] AdvReac Unknown Hallucinati Verified 04/04/22 11:21 ons Review of Systems <DEBORAH Keller - Last Filed: 04/04/22 15:00> Review of Systems Narrative: Review of systems is negative for acute abnormalities unless otherwise noted in HPI Patient History <DEBORAH Keller - Last Filed: 04/04/22 15:00> Medical History Abdominal pain Advance care planning Bilateral low back pain without sciatica (11/23/15) Chronic back pain (Unknown) Chronic constipation Cobalamin deficiency (01/11/16) Constipation (11/23/15) COPD (chronic obstructive pulmonary disease) Dizziness (11/05/16) FRAZIER (dyspnea on exertion) Excessive daytime sleepiness (01/11/16) Frailty syndrome in geriatric patient History of seizure (Unknown) History of stroke (11/23/15) Hx of gastric ulcer (08/2016) Hypercholesterolemia (Unknown) Hypertension (Unknown) 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) Osteopenia Osteoporosis Perforated viscus (09/03/16) Pure hypercholesterolemia (11/23/15) Sebaceous cyst Seborrheic keratosis (05/12/16) Seizure disorder (09/30/16) Tobacco abuse Urinary frequency Vitamin B12 deficiency (Unknown) Surgical History Anesthesia History of colonoscopy History of partial hysterectomy (~1985) Status post cholecystectomy Family History Mother Stroke Hypertension Alcoholism Seizure Father Alcoholism Sister Cancer Social History household members: none Smoking Status: Current every day smoker alcohol intake: current substance use type: does not use Smoking Status: Current every day smoker alcohol intake frequency: 0-2 drinks per day Substance Use Type: does not use Exam <DEBORAH Keller - Last Filed: 04/04/22 15:00> Narrative Exam Narrative: Reviewed vitals signs and nursing notes. General: cooperative, comfortable, in no acute distress, appears disheveled, and tired HEENT: symmetrical facial expressions, membranes, bilateral conjunctiva with thick white discharge, mucus membranes are dry Cardiovascular: Tachycardic rate and regular rhythm, no peripheral edema, warm extremities Respiratory: normal effort, able to speak in complete sentences, without wheezing, stridor, diminished breath sounds on lower left, shallow respirations with rhonchi present, pulse oximeter reading 88% on room air, respiratory rate 22, without retractions, apply 2 L nasal cannula 4 pulse oximeter reading 93% GI: abdomen distended, nontender to palpation, without masses, rebound tenderness or exquisite tenderness with exam. MSK: moves all extremities, neurovascularly intact, no weakness, normal tone pain with movement on the left side, tenderness to left ribs over fracture Skin: brisk capillary refill, without pallor or erythema Neuro: normal speech and cognition, A&O x3, ambulatory, clear speech Psych: mental status is grossly normal, congruent mood, normal affect, pleasant and cooperative Initial Vital Signs Initial Vital Signs: Vital Signs Pulse Rate 114 H 04/04/22 11:11 Pulse Oximetry 90 L 04/04/22 11:11 Oxygen Delivery Method 04/04/22 11:11 <Dayron Garner MD - Last Filed: 04/04/22 16:58> Initial Vital Signs Initial Vital Signs: Vital Signs Pulse Rate 114 H 04/04/22 11:11 Pulse Oximetry 90 L 04/04/22 11:11 Oxygen Delivery Method 04/04/22 11:11 Course <DEBORAH Keller - Last Filed: 04/04/22 15:00> Orders Ordered: ED Orders 04/04/22 11:08 Consult to MILITARY PAY CLERK - Cider Maker Stat 04/04/22 11:19 Complete Blood Count AUTO DIFF Stat Comprehensive Metabolic Panel Stat Lactate (Lactic Acid) Stat Lipase Stat Procalcitonin Stat 04/04/22 11:22 XR chest 1V Stat RT Consult Eval and Treat NOW 04/04/22 11:53 EKG-12 Lead Stat 04/04/22 12:00 Blood Culture Stat 04/04/22 12:18 CT chest abd pel wo con Stat 04/04/22 12:26 COVID19 -Nasal RAPID/Pre-Proc Stat 04/04/22 13:30 Ictotest Urine Stat UA Complete [Urinalysis and Microscopic] Stat Acetaminophen (Acetaminophen 325 Mg Tablet) 650 mg PO Q4H PRN PRN Reason: Fever/Mild Pain (1-3) Hydrocodone Bitart/Acetaminophen (Hydrocodone/Acet 5/325 Tablet) 1 tab PO Q6H PRN PRN Reason: pain Last Admin: 04/04/22 16:53 Dose: 1 tab Documented By: THOMAS Albuterol (Albuterol Hfa Mdi 60 Puff/8 Gm Inhaler) 2 puff INH RTQ4HR PRN PRN Reason: Shortness Of Breath Albuterol (Albuterol 1.25 Mg/3 Ml Neb (Pediatric)) 1.25 mg INH RTQ4HR PRN PRN Reason: Shortness Of Breath Or Wheezing Alendronate Sodium (Alendronate 70 Mg Tablet) 70 mg PO QWEEK ANG Amlodipine Besylate (Amlodipine 5 Mg Tablet) 5 mg PO BID ANG Levofloxacin (Levaquin) 750 mg in 150 mls @ 100 mls/hr IV Q24H ANG Lisinopril (Lisinopril 20 Mg Tablet) 40 mg PO DAILY ANG Multivitamins (Multivitamin 1 Tablet) 1 tab PO DAILY ANG Non-Formulary Medication (Calcium Carbonate [Antacid Ext Str (Calcium Carb)]) 600 mg PO BID ANG Non-Formulary Medication (Omeprazole) 20 mg PO DAILY ANG Ondansetron HCl (Ondansetron 4 Mg/2 Ml Inj) 4 mg IV Q4HR PRN PRN Reason: Nausea And Vomiting Ondansetron HCl (Ondansetron 4 Mg Odt) 4 mg SL Q4HR PRN PRN Reason: Nausea Sennosides (Sennosides 8.6 Mg Tablet) 17.2 mg PO BEDTIME ANG Vitamin D (Cholecalciferol (Vitamin D3) 1,000 Unit Tablet) unit PO DAILY ANG Discontinued Medications Albuterol (Albuterol 2.5 Mg/3 Ml Neb (Adult)) 2.5 mg INH NOW ONE Stop: 04/04/22 12:59 Last Admin: 04/04/22 13:02 Dose: 2.5 mg Documented By: GATO Bisacodyl (Bisacodyl 10 Mg Supp) 10 mg [place] NOW ONE Stop: 04/04/22 13:28 Last Admin: 04/04/22 14:22 Dose: 10 mg Documented By: KAYODE Sodium Chloride (Normal Saline 0.9%) 1,000 mls @ 1,000 mls/hr IV BOLUS ONE Stop: 04/04/22 12:21 Last Infusion: 04/04/22 15:17 Dose: 0 mls/hr Documented By: Admin: 04/04/22 11:58 Dose: 1,000 mls/hr Documented By: OTONIEL Levofloxacin (Levaquin) 750 mg in 150 mls @ 100 mls/hr IV NOW ONE Stop: 04/04/22 14:05 Last Infusion: 04/04/22 14:31 Dose: 0 mls/hr Documented By: Admin: 04/04/22 12:57 Dose: 100 mls/hr Documented By: AT Vital Signs Vital signs: Vital Signs - 8 hr 04/04/22 11:17 04/04/22 11:11 04/04/22 11:12 Temperature 98.7 F Pulse Rate 102 H 114 H 110 H Respiratory Rate 22 Blood Pressure 161/100 H Pulse Oximetry 92 90 L 89 L Oxygen Delivery Method Room Air Room Air Oxygen Flow Rate 04/04/22 11:12 04/04/22 11:30 04/04/22 11:30 Temperature Pulse Rate 104 H Respiratory Rate 34 H Blood Pressure 161/100 H 152/91 H Pulse Oximetry 91 Oxygen Delivery Method Room Air Oxygen Flow Rate 04/04/22 12:00 04/04/22 12:28 04/04/22 13:10 Temperature Pulse Rate 105 H 98 H Respiratory Rate 25 H 14 Blood Pressure Pulse Oximetry 88 L 90 L 92 Oxygen Delivery Method Room Air Nasal Cannula Nasal Cannula Oxygen Flow Rate 2 2 04/04/22 12:30 04/04/22 12:30 04/04/22 13:00 Temperature Pulse Rate 97 H 102 H Respiratory Rate 18 22 Blood Pressure 135/80 Pulse Oximetry 93 88 L Oxygen Delivery Method Nasal Cannula Nasal Cannula Oxygen Flow Rate 2 2 04/04/22 13:30 04/04/22 13:30 04/04/22 14:00 Temperature Pulse Rate 106 H Respiratory Rate 22 Blood Pressure 157/85 H 138/84 Pulse Oximetry 90 L Oxygen Delivery Method Nasal Cannula Oxygen Flow Rate 2 04/04/22 14:00 04/04/22 14:30 04/04/22 14:30 Temperature Pulse Rate 96 H 109 H Respiratory Rate 19 Blood Pressure 136/113 H Pulse Oximetry 90 L 91 Oxygen Delivery Method Nasal Cannula Nasal Cannula Oxygen Flow Rate 2 2 <Dayron Garner MD - Last Filed: 04/04/22 16:58> Orders Ordered: ED Orders 04/04/22 11:08 Consult to MILITARY PAY CLERK - Cider Maker Stat 04/04/22 11:19 Complete Blood Count AUTO DIFF Stat Comprehensive Metabolic Panel Stat Lactate (Lactic Acid) Stat Lipase Stat Procalcitonin Stat 04/04/22 11:22 XR chest 1V Stat RT Consult Eval and Treat NOW 04/04/22 11:53 EKG-12 Lead Stat 04/04/22 12:00 Blood Culture Stat 04/04/22 12:18 CT chest abd pel wo con Stat 04/04/22 12:26 COVID19 -Nasal RAPID/Pre-Proc Stat 04/04/22 13:30 Ictotest Urine Stat UA Complete [Urinalysis and Microscopic] Stat Acetaminophen (Acetaminophen 325 Mg Tablet) 650 mg PO Q4H PRN PRN Reason: Fever/Mild Pain (1-3) Hydrocodone Bitart/Acetaminophen (Hydrocodone/Acet 5/325 Tablet) 1 tab PO Q6H PRN PRN Reason: pain Last Admin: 04/04/22 16:53 Dose: 1 tab Documented By: THOMAS Albuterol (Albuterol Hfa Mdi 60 Puff/8 Gm Inhaler) 2 puff INH RTQ4HR PRN PRN Reason: Shortness Of Breath Albuterol (Albuterol 1.25 Mg/3 Ml Neb (Pediatric)) 1.25 mg INH RTQ4HR PRN PRN Reason: Shortness Of Breath Or Wheezing Alendronate Sodium (Alendronate 70 Mg Tablet) 70 mg PO QWEEK ANG Amlodipine Besylate (Amlodipine 5 Mg Tablet) 5 mg PO BID ANG Levofloxacin (Levaquin) 750 mg in 150 mls @ 100 mls/hr IV Q24H ANG Lisinopril (Lisinopril 20 Mg Tablet) 40 mg PO DAILY ANG Multivitamins (Multivitamin 1 Tablet) 1 tab PO DAILY ANG Non-Formulary Medication (Calcium Carbonate [Antacid Ext Str (Calcium Carb)]) 600 mg PO BID ANG Non-Formulary Medication (Omeprazole) 20 mg PO DAILY ANG Ondansetron HCl (Ondansetron 4 Mg/2 Ml Inj) 4 mg IV Q4HR PRN PRN Reason: Nausea And Vomiting Ondansetron HCl (Ondansetron 4 Mg Odt) 4 mg SL Q4HR PRN PRN Reason: Nausea Sennosides (Sennosides 8.6 Mg Tablet) 17.2 mg PO BEDTIME ANG Vitamin D (Cholecalciferol (Vitamin D3) 1,000 Unit Tablet) unit PO DAILY ANG Discontinued Medications Albuterol (Albuterol 2.5 Mg/3 Ml Neb (Adult)) 2.5 mg INH NOW ONE Stop: 04/04/22 12:59 Last Admin: 04/04/22 13:02 Dose: 2.5 mg Documented By: GATO Bisacodyl (Bisacodyl 10 Mg Supp) 10 mg [place] NOW ONE Stop: 04/04/22 13:28 Last Admin: 04/04/22 14:22 Dose: 10 mg Documented By: KAYODE Sodium Chloride (Normal Saline 0.9%) 1,000 mls @ 1,000 mls/hr IV BOLUS ONE Stop: 04/04/22 12:21 Last Infusion: 04/04/22 15:17 Dose: 0 mls/hr Documented By: Admin: 04/04/22 11:58 Dose: 1,000 mls/hr Documented By: AT Levofloxacin (Levaquin) 750 mg in 150 mls @ 100 mls/hr IV NOW ONE Stop: 04/04/22 14:05 Last Infusion: 04/04/22 14:31 Dose: 0 mls/hr Documented By: Admin: 04/04/22 12:57 Dose: 100 mls/hr Documented By: AT Vital Signs Vital signs: Vital Signs - 8 hr 04/04/22 11:17 04/04/22 11:11 04/04/22 11:12 Temperature 98.7 F Pulse Rate 102 H 114 H 110 H Respiratory Rate 22 Blood Pressure 161/100 H Pulse Oximetry 92 90 L 89 L Oxygen Delivery Method Room Air Room Air Oxygen Flow Rate 04/04/22 11:12 04/04/22 11:30 04/04/22 11:30 Temperature Pulse Rate 104 H Respiratory Rate 34 H Blood Pressure 161/100 H 152/91 H Pulse Oximetry 91 Oxygen Delivery Method Room Air Oxygen Flow Rate 04/04/22 12:00 04/04/22 12:28 04/04/22 13:10 Temperature Pulse Rate 105 H 98 H Respiratory Rate 25 H 14 Blood Pressure Pulse Oximetry 88 L 90 L 92 Oxygen Delivery Method Room Air Nasal Cannula Nasal Cannula Oxygen Flow Rate 2 2 04/04/22 12:30 04/04/22 12:30 04/04/22 13:00 Temperature Pulse Rate 97 H 102 H Respiratory Rate 18 22 Blood Pressure 135/80 Pulse Oximetry 93 88 L Oxygen Delivery Method Nasal Cannula Nasal Cannula Oxygen Flow Rate 2 2 04/04/22 13:30 04/04/22 13:30 04/04/22 14:00 Temperature Pulse Rate 106 H Respiratory Rate 22 Blood Pressure 157/85 H 138/84 Pulse Oximetry 90 L Oxygen Delivery Method Nasal Cannula Oxygen Flow Rate 2 04/04/22 14:00 04/04/22 14:30 04/04/22 14:30 Temperature Pulse Rate 96 H 109 H Respiratory Rate 19 Blood Pressure 136/113 H Pulse Oximetry 90 L 91 Oxygen Delivery Method Nasal Cannula Nasal Cannula Oxygen Flow Rate 2 2 MDM - Fall <DEBORAH Keller - Last Filed: 04/04/22 15:00> Lab Data Result diagrams: 04/04/22 11:19 04/04/22 11:19 Labs: Lab Results 04/04/22 04/04/22 04/04/22 Range/Units 11:19 11:19 11:19 WBC 17.6 H (4.5-11.0) X10^3/uL RBC 5.22 H (4.0-5.2) X10^6/uL Hgb 15.2 (12.0-16.0) g/dL Hct 45.6 (36-46) % MCV 87.3 (80-100) fL MCH 29.2 (26-34) PG MCHC 33.4 (30-36) % RDW 14.1 (11.6-14.8) % Plt Count 325 (150-400) X10^3/uL Neut % (Auto) 90.4 H (50-75) % Lymph % (Auto) 3.4 L (25-40) % [place] % (Auto) 5.8 (3-14) % Eos % (Auto) 0.0 L (2-4) % Baso % (Auto) 0.4 (0-2) % Neut # (Auto) 40556 H (6702-7330) /uL Lymph # (Auto) 600 L (0454-6786) /uL [place] # (Auto) 1000 H (0-900) /uL Eos # (Auto) 0 (0-450) /uL Baso # (Auto) 100 (0-100) /uL Sodium 139 (137-145) mmol/L Potassium 4.3 (3.4-5.1) mmol/L Chloride 99 (98-107) mmol/L Carbon Dioxide 31 (22-32) mmol/L BUN 29 H (7-17) mg/dL Creatinine 0.73 (0.52-1.04) mg/dL Estimated GFR > 60 (>60) mL/min BUN/Creatinine Ratio 39.7 H (6-22) Glucose 126 H (80-110) mg/dL Lactate 1.4 (0.7-2.1) mmol/L Calcium 9.4 (8.4-10.2) mg/dL Total Bilirubin 2.0 H (0.2-1.3) mg/dL AST 27 (14-36) IU/L ALT 22 (<35) IU/L Alkaline Phosphatase 85 (38-126) U/L Total Protein 7.9 (6.3-8.2) g/dL Albumin 4.1 (3.5-5.0) g/dL Globulin 3.8 (1.7-4.1) g/dL Albumin/Globulin Ratio 1.1 (1.0-2.8) Lipase 32 (23-300) U/L Procalcitonin 0.12 (<0.5) ng/mL Urine Color Urine Appearance Urine pH (4.5-8.0) Ur Specific [place] (1.000-1.035) Urine Protein (Negative) Urine Glucose (UA) (Negative) g/dL Urine Ketones (NEGATIVE) Urine Occult Blood (Negative) Urine Nitrate (Negative) Urine Bilirubin (NEGATIVE) Ur Bilirubin Confirm (Negative) Urine Urobilinogen (0.2) E.U./dL Ur Leukocyte Esterase (NEGATIVE) Urine RBC (0-5/HPF) Urine WBC (0-5/HPF) Ur Squamous Epith Cells (0-5/HPF) Urine Bacteria (None) Ur Culture Indicated? SARS-CoV-2 (PCR) (Negative) 04/04/22 04/04/22 Range/Units 12:26 13:30 WBC (4.5-11.0) X10^3/uL RBC (4.0-5.2) X10^6/uL Hgb (12.0-16.0) g/dL Hct (36-46) % MCV (80-100) fL MCH (26-34) PG MCHC (30-36) % RDW (11.6-14.8) % Plt Count (150-400) X10^3/uL Neut % (Auto) (50-75) % Lymph % (Auto) (25-40) % [place] % (Auto) (3-14) % Eos % (Auto) (2-4) % Baso % (Auto) (0-2) % Neut # (Auto) (5714-1996) /uL Lymph # (Auto) (8274-5605) /uL [place] # (Auto) (0-900) /uL Eos # (Auto) (0-450) /uL Baso # (Auto) (0-100) /uL Sodium (137-145) mmol/L Potassium (3.4-5.1) mmol/L Chloride (98-107) mmol/L Carbon Dioxide (22-32) mmol/L BUN (7-17) mg/dL Creatinine (0.52-1.04) mg/dL Estimated GFR (>60) mL/min BUN/Creatinine Ratio (6-22) Glucose (80-110) mg/dL Lactate (0.7-2.1) mmol/L Calcium (8.4-10.2) mg/dL Total Bilirubin (0.2-1.3) mg/dL AST (14-36) IU/L ALT (<35) IU/L Alkaline Phosphatase (38-126) U/L Total Protein (6.3-8.2) g/dL Albumin (3.5-5.0) g/dL Globulin (1.7-4.1) g/dL Albumin/Globulin Ratio (1.0-2.8) Lipase (23-300) U/L Procalcitonin (<0.5) ng/mL Urine Color Ritchie Urine Appearance Sl cloudy Urine pH 7.0 (4.5-8.0) Ur Specific [place] 1.010 (1.000-1.035) Urine Protein 2+ H (Negative) Urine Glucose (UA) Trace H (Negative) g/dL Urine Ketones Trace H (NEGATIVE) Urine Occult Blood 1+ H (Negative) Urine Nitrate Negative (Negative) Urine Bilirubin 1+ H (NEGATIVE) Ur Bilirubin Confirm Negative (Negative) Urine Urobilinogen 1.0 (0.2) E.U./dL Ur Leukocyte Esterase 2+ H (NEGATIVE) Urine RBC 5-10/hpf H (0-5/HPF) Urine WBC 10-30/hpf H (0-5/HPF) Ur Squamous Epith Cells 10-30 /hpf H (0-5/HPF) Urine Bacteria Many (>30) H (None) Ur Culture Indicated? Cult not indicated SARS-CoV-2 (PCR) Negative (Negative) Imaging Data Chest x-ray: Radiologist's Impression: PROCEDURE:? XR CHEST 1V ? INDICATIONS:? suspected sepsis ? TECHNIQUE:? One view of the chest was acquired.? ? COMPARISON:? [facility], CR, XR CHEST 2V, 07/23/2018, 14:46. ? FINDINGS:? ? Surgical changes and devices:? None.? ? Lungs and pleura:? Moderate left pleural effusion associated compressive at electasis present.? Right lung and pleural space clear ? Mediastinum:? Mediastinal contours appear normal.? Heart size is enlarged.? Atherosclerotic vascular calcification noted in the aortic arch. ? Bones and chest wall:? Generalized decrease in osseous mineralization noted. ? IMPRESSION:? ? Moderate left pleural effusion with associated atelectasis and or infiltrate. Hyperinflation and chronic interstitial changes Aortic atherosclerosis and osteopenia ? ? ? Approved by: Daniel Crespo M.D. on 04/04/2022 at 11:34? CT scan - abdomen/pelvis: Radiologist's Impression: PROCEDURE:? CT CHEST ABD PEL WO CON ? INDICATIONS:? pneumonia vs effusion , left rib fracture, distended abd ? TECHNIQUE:? After the administration of oral contrast, 5 mm thick sections acquired from the lung apices to the symphysis pubis.? 5 mm thick coronal and sagittal reformats acquired, with additional 7 mm coronal MIP reformats through the lungs.? For radiation dose reduction, the following was used:? automated exposure control, adjustment of mA and/or kV according to patient size.? ? COMPARISON:? [facility], CR, XR CHEST 1V, 04/04/2022, 11:22. ? FINDINGS: ? ? Image quality:? Excellent.? ? CHEST: Lungs and pleura:? The bones have centrilobular emphysematous changes.? There is dependent atelectasis in the left upper lobe and left lower lobe.? No pleural effusions or pneumothorax.? Mucosal plugging in the left mainstem bronchus is seen.? ? Mediastinum:? Heart size is normal.? No pericardial effusion.? The coronary arteries have atherosclerotic calcifications.? No mediastinal adenopathy by size criteria.? The aorta has atherosclerosis with no aneurysmal dilatation.? Esophagus is normal in caliber.? No hiatal hernia. ? Chest wall:? No axillary or supraclavicular adenopathy by size criteria.? Thyroid gland is normal .? ? ABDOMEN: Solid organs:? Liver: The liver has no mass or intrahepatic biliary ductal dilatation. Biliary: Status post cholecystectomy. Pancreas: The pancreas has no mass or ductal dilatation. There is no surrounding inflammation. Spleen: Normal size. There are no masses. Adrenals: No hypertrophy or nodules. Kidneys: No obstructive calculus or hydronephrosis.? No solid mass. No cystic mass. ? Bowel:? The distal esophagus and stomach are normal.? The small bowel has a normal caliber and appearance. The large bowel has bowel increased stool throughout consistent with constipation.? The left and sigmoid colon have diverticulosis with no evidence of acute diverticulitis..? The appendix is normal. No free fluid or air.? ? Nodes and vessels:? No retroperitoneal or mesenteric adenopathy by size criteria.? The aorta and iliac arteries have severe atherosclerotic calcifications.? There is aneurysmal dilatation of the proximal infrarenal aorta measuring 3.3 cm. ? Abdominal wall:? No abdominal wall mass or hernia. ? PELVIS:? Genitourinary:? The bladder has no wall thickening or mass. No bladder calcifications. ? BONES:? The central height loss of multiple lower thoracic and lumbar vertebral bodies are seen consistent with compression fractures of indeterminate age.? The bones are demineralized.? ? IMPRESSION:? 1. Displaced fractures of the left posterior 11th and 12th ribs. 2. Dependent atelectasis in the left upper lobe and left lower lobe likely related to mucosal plugging in the left mainstem bronchus. 3. Severe constipation. 4. Multilevel central height loss of multiple vertebral bodies of indeterminate age. 5. 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 ? Dictated by: Felix Hoffmann M.D. on 04/04/2022 at 13:44 ? ? Approved by: Felix Hoffmann M.D. on 04/04/2022 at 13:55 ? ECG Data Interpretation: EKG reviewed by myself and Dr. Garner [id number] reveals sinus tachycardia with left axis deviation, right bundle-branch block at 106 bpm. No STEMI, ST segment changes, arrhythmia, or acute ischemic changes. MDM Narrative Medical decision making narrative: This is a 76-year-old female who comes into the emergency department today by ambulance after a fall/roll out of bed today after she had a mechanical fall on 03/30/2022 in which she fractured her left lateral 10th rib without pneumothorax. She was seen in the emergency department that day and discharged home. She states that she rolled out of bed because her bed it is at a slant, states that she has had a hard time at home making food and has meals on wheels being delivered but patient has 19 steps in her home and can only ambulate 3 of them. She has a history of COPD and wears O2 at night, denies any worsening shortness of breath but was found to have a moderate left-sided pleural effusion with associated atelectasis/infiltrate, hyperinflation and chronic interstitial changes primarily on the right, aortic atherosclerosis and osteopenia was visualized on x-ray. Chest abdomen pelvis CT without contrast was obtained for evaluation of pleural effusion and rib fractures. CT shows displaced fractures of the left posterior 11th and 12th ribs, dependent atelectasis in the upper left lobe and lower left lobe likely related to mucosal plugging in the left mainstem bronchus, severe constipation, patient was given a docusate suppository, no other acute findings on CT. Patient was found to have a prominent leukocytosis of 17.6 with a left shift, without anemia, dehydration and was given 1 L of lactated Ringer's, no electrolyte abnormalities, total bilirubin was elevated at 2.0 today, this is higher than her last visit on 03/22/2022 of 0.4, procalcitonin 0.12 and lipase is 32. Her urine today is orange and cloudy, was positive for leukocyte esterase, rbc's and wbc's with many bacteria on microscopy, this was sent for culture. She was given 750 mg of IV Levaquin, her pain was well controlled, her COVID PCR is negative. Discussion with Dr. Ford for admission for new O2 requirement, pneumonia, pleural effusion, rib fractures, sepsis, severe constipation, acute cystitis and failure to thrive. She accepts. Patient was informed of lab and imaging results, pertinent diagnoses, consulting physicians, and treatment plan. I have spoken with the patient in regard to admission, patient understands and agrees. I have communicated the patient's evaluation and treatment plan to the admitting physician who agrees with admission. All questions answered at this time. <Dayron Garner MD - Last Filed: 04/04/22 16:58> Lab Data Labs: Lab Results 04/04/22 04/04/22 04/04/22 Range/Units 11:19 11:19 11:19 WBC 17.6 H (4.5-11.0) X10^3/uL RBC 5.22 H (4.0-5.2) X10^6/uL Hgb 15.2 (12.0-16.0) g/dL Hct 45.6 (36-46) % MCV 87.3 (80-100) fL MCH 29.2 (26-34) PG MCHC 33.4 (30-36) % RDW 14.1 (11.6-14.8) % Plt Count 325 (150-400) X10^3/uL Neut % (Auto) 90.4 H (50-75) % Lymph % (Auto) 3.4 L (25-40) % [place] % (Auto) 5.8 (3-14) % Eos % (Auto) 0.0 L (2-4) % Baso % (Auto) 0.4 (0-2) % Neut # (Auto) 76137 H (5071-9843) /uL Lymph # (Auto) 600 L (9982-3376) /uL [place] # (Auto) 1000 H (0-900) /uL Eos # (Auto) 0 (0-450) /uL Baso # (Auto) 100 (0-100) /uL Sodium 139 (137-145) mmol/L Potassium 4.3 (3.4-5.1) mmol/L Chloride 99 (98-107) mmol/L Carbon Dioxide 31 (22-32) mmol/L BUN 29 H (7-17) mg/dL Creatinine 0.73 (0.52-1.04) mg/dL Estimated GFR > 60 (>60) mL/min BUN/Creatinine Ratio 39.7 H (6-22) Glucose 126 H (80-110) mg/dL Lactate 1.4 (0.7-2.1) mmol/L Calcium 9.4 (8.4-10.2) mg/dL Total Bilirubin 2.0 H (0.2-1.3) mg/dL AST 27 (14-36) IU/L ALT 22 (<35) IU/L Alkaline Phosphatase 85 (38-126) U/L Total Protein 7.9 (6.3-8.2) g/dL Albumin 4.1 (3.5-5.0) g/dL Globulin 3.8 (1.7-4.1) g/dL Albumin/Globulin Ratio 1.1 (1.0-2.8) Lipase 32 (23-300) U/L Procalcitonin 0.12 (<0.5) ng/mL Urine Color Urine Appearance Urine pH (4.5-8.0) Ur Specific [place] (1.000-1.035) Urine Protein (Negative) Urine Glucose (UA) (Negative) g/dL Urine Ketones (NEGATIVE) Urine Occult Blood (Negative) Urine Nitrate (Negative) Urine Bilirubin (NEGATIVE) Ur Bilirubin Confirm (Negative) Urine Urobilinogen (0.2) E.U./dL Ur Leukocyte Esterase (NEGATIVE) Urine RBC (0-5/HPF) Urine WBC (0-5/HPF) Ur Squamous Epith Cells (0-5/HPF) Urine Bacteria (None) Ur Culture Indicated? SARS-CoV-2 (PCR) (Negative) 04/04/22 04/04/22 Range/Units 12:26 13:30 WBC (4.5-11.0) X10^3/uL RBC (4.0-5.2) X10^6/uL Hgb (12.0-16.0) g/dL Hct (36-46) % MCV (80-100) fL MCH (26-34) PG MCHC (30-36) % RDW (11.6-14.8) % Plt Count (150-400) X10^3/uL Neut % (Auto) (50-75) % Lymph % (Auto) (25-40) % [place] % (Auto) (3-14) % Eos % (Auto) (2-4) % Baso % (Auto) (0-2) % Neut # (Auto) (2980-0583) /uL Lymph # (Auto) (7445-0060) /uL [place] # (Auto) (0-900) /uL Eos # (Auto) (0-450) /uL Baso # (Auto) (0-100) /uL Sodium (137-145) mmol/L Potassium (3.4-5.1) mmol/L Chloride (98-107) mmol/L Carbon Dioxide (22-32) mmol/L BUN (7-17) mg/dL Creatinine (0.52-1.04) mg/dL Estimated GFR (>60) mL/min BUN/Creatinine Ratio (6-22) Glucose (80-110) mg/dL Lactate (0.7-2.1) mmol/L Calcium (8.4-10.2) mg/dL Total Bilirubin (0.2-1.3) mg/dL AST (14-36) IU/L ALT (<35) IU/L Alkaline Phosphatase (38-126) U/L Total Protein (6.3-8.2) g/dL Albumin (3.5-5.0) g/dL Globulin (1.7-4.1) g/dL Albumin/Globulin Ratio (1.0-2.8) Lipase (23-300) U/L Procalcitonin (<0.5) ng/mL Urine Color [place] Urine Appearance Sl cloudy Urine pH 7.0 (4.5-8.0) Ur Specific [place] 1.010 (1.000-1.035) Urine Protein 2+ H (Negative) Urine Glucose (UA) Trace H (Negative) g/dL Urine Ketones Trace H (NEGATIVE) Urine Occult Blood 1+ H (Negative) Urine Nitrate Negative (Negative) Urine Bilirubin 1+ H (NEGATIVE) Ur Bilirubin Confirm Negative (Negative) Urine Urobilinogen 1.0 (0.2) E.U./dL Ur Leukocyte Esterase 2+ H (NEGATIVE) Urine RBC 5-10/hpf H (0-5/HPF) Urine WBC 10-30/hpf H (0-5/HPF) Ur Squamous Epith Cells 10-30 /hpf H (0-5/HPF) Urine Bacteria Many (>30) H (None) Ur Culture Indicated? Cult not indicated SARS-CoV-2 (PCR) Negative (Negative) Discharge Plan Departure Patient Disposition: Admitted As Inpatient Clinical Impression: Pleural effusion, Atelectasis of left lung COPD (chronic obstructive pulmonary disease) Qualifiers: COPD type: COPD with acute lower respiratory infection Qualified Code(s): J44.0 - Chronic obstructive pulmonary disease with (acute) lower respiratory infection Fall Qualifiers: Encounter type: initial encounter Qualified Code(s): W19.XXXA - Unspecified fall, initial encounter Sepsis Qualifiers: Sepsis type: sepsis due to unspecified organism Sepsis acute organ dysfunction status: with acute organ dysfunction Severe sepsis acute organ dysfunction type: unspecified Severe sepsis shock status: without septic shock Qualified Code(s): A41.9 - Sepsis, unspecified organism Constipation Qualifiers: Constipation type: slow transit constipation Qualified Code(s): K59.01 - Slow transit constipation Multiple rib fractures Qualifiers: Encounter type: subsequent encounter Fracture type: closed Laterality: left Fracture healing: with routine healing Qualified Code(s): S22.42XD - Multiple fractures of ribs, left side, subsequent encounter for fracture with routine healing Admit Date/Time: 04/04/22 14:35 Admit Provider: Vicky Jasmine <Dayron Garner MD - Last Filed: 04/04/22 16:58> Cosign ED Attending Cosignature Attestation: I was immediately available in the department for consultation. ?This documentation has been reviewed and I agree with assessment and plan. Supervised by Dayron Garner MD
[2022-04-04 12:55] LABS: COVID19 -Nasal RAPID Negative (Negative)
[2022-04-04] MEDS: levoFLOXacin 750 MG/150 ML PIGGYBACK 100 MG IV (12:57)
[2022-04-04] MEDS: ALBUTEROL 2.5 MG/3 ML NEB (ADULT) INH (13:02)
[2022-04-04 13:37] LABS: Appearance Urine UA SL CLOUDY; Bilirubin Urine UA 1+ (NEGATIVE); Color Urine UA ORANGE; Glucose Urine UA TRACE g/dL (Negative); Ketones Urine UA TRACE (NEGATIVE); Leukocyte Esterase Urine UA 2+ (NEGATIVE); Nitrite Urine UA NEGATIVE (Negative); Occult Blood Urine UA 1+ (Negative); Protein Urine UA 2+ (Negative)
[2022-04-04 13:39] LABS: Ictotest Urine Negative (Negative)
[2022-04-04 13:42] LABS: RBC Urine 5-10/HPF (0-5/HPF); WBC Urine 10-30/HPF (0-5/HPF)
[2022-04-04 13:43] LABS: Bacteria Urine Many (>30); Culture Indicated Urine Cult Not Indicated; Squamous Epithelial Cell Urine 10-30 /HPF (0-5/HPF)
[2022-04-04] MEDS: BISACODYL 10 MG SUPP PR (14:22)
--- NOTE | 2022-04-04 14:56 | CM.IDA ---
Initial DCP Assessment Patient is 76 y/o female who presents to ED via EMS after GLF from bed. Patient presented to ED on 03/30/22 due to fall and had dx of rib fracture. Per medical evaluation in ED today, patient presents with dx of Pleural effusion with associated atelectasis and concern for Sepsis. Patient has hx of COPD, Osteoprosis, chronic constipation and hypertension. Patient's PCP is DEBORAH Dumont. Patient has [facility]. Patient is DNR with limited intervention. FLIGHT FOLLOWER enters room, patient presents as A/Ox3, patient states she resides alone at home. Patient states that her daughter lives nearby but has MS and is limited in her ability to assist patient. Patient endorses completing ADLs has been tough since her recent GLFs and fx from 03/30/22. Patient endorses she uses two canes at a time and has FWW as well. Patient endorses she does not drive and receives rides from her friend. Patient receives meals on wheels. Patient receives oxygen at home. Prior to meeting with patient, FLIGHT FOLLOWER receives call from PCP Dasia Peters's office from [facility]. It is reported that patient has 19 stairs in her home to get to the bathroom and bedroom and patient can only walk 3 steps. It is reported that patient has been staying in her chair since her last ED discharge and has been unable to complete ADLs. RN reports that the family's preference is for patient to go to SNF rehab and patient was in agreement when this was discussed with family. RN reports that there is concern for patient's safety in returning to home. RN later calls back and states after reviewing with PCP, patient's wishes have also been home with hospice and need for BLS to home with bedside commode, if hospice is recommended at this time. FLIGHT FOLLOWER asks about patient preference and patient endorses agreement to SNF rehab for a short term amount of time but would not like to go to [facility]. Per ED provider Marie Ling PA-C this patient was accepted by hospitalist Dr. Jasmine due to concern for PE with atelectasis, sepsis as well as a fracture. Plan: DCP to f/u with POC, pending PT eval. most likely SNF rehab referral. Autumn Maria, [facility] Discharge Planning/Care Management CM Discharge Assessment Start: 04/04/22 14:27 Freq: Status: Active Protocol: Document 04/04/22 14:27 LN (Rec: 04/04/22 14:56 LN [id number]) Discharge Planning Assessment Assigned Network Architect FELIX Leyva Advance Directives? No History Provided By Patient,Medical Record Has Patient been admitted in last 30 No days? Prior Living Arrangements Apartment/Condo Household Members none Type of transporation used prior to Relies on Others admit Independent with ADL's No: patient states yes, others state no Is patient alert and oriented? Yes Needs Assistance With Bathing,Meal Prep,Toileting, Home Chores / Shopping Comment Patient receives meals on wheels. Community Services used prior to Oxygen Therapy admission: DME Already Rented / Owned FWW / Walker,Cane,Oxygen Comment Patient endorses she has 2 canes and 1 walker Patient/Family Preference [facility] Comment Patient open to short term SNF rehab if needed, per patient' s PCP Dasia Peters's office patient earlier discussed preference for Hospice at home if recommended. Barriers to Discharge Yes Comment PCP's office endorses concern for patient's safety at home. Additional Comment SNF rehab vs Home with Hospice . Medicare Choice List Provided No SNF/HH Preference Patient states she does not want to go to [facility]. Medicare choice list not yet given in ED, patient to be admitted to acute care. Has Agency SNF been contacted No Please Provide Date Initial DC 04/04/22 Assessment Was Performed
--- NOTE | 2022-04-04 14:57 | P.HP_ITS ---
History of Present Illness History of Present Illness Date Patient Seen: 04/04/22 Time Patient Seen: 14:45 Chief complaint: GLF from bed Narrative: Niecy Rivera is a 76-year-old female who presented to the emergency department after she rolled out of bed this morning with a previous fall on 03/30/22 at home with a left rib fractures of 11th and 12th.? She was seen in the emergency department that day and her daughter sent her in today reporting that patient needs more help at home.? Patient states that she has been doing okay, does not report fevers, chills she states that she needs help from somebody who can cook for her.? She states that she has meals on wheels already, denies nausea, vomiting, chest pain, difficulty breathing.? She states that she has left-sided rib pain.? She rolled out of bed because she states her bed is at a slant and it happened quickly, she denies hitting her head or having any loss of consciousness.? She states that she wears oxygen at night and does not measure how much.? She denies any difficulty walking.? She denies loss of consciousness, she denies new weakness or new shortness of breath. 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) Osteopenia Osteoporosis Perforated viscus (09/03/16) Pure hypercholesterolemia (11/23/15) Sebaceous cyst Seborrheic keratosis (11/23/15) Seizure disorder (09/30/16) Tobacco abuse Urinary frequency Vitamin B12 deficiency (Unknown) Surgical History Anesthesia History of colonoscopy History of partial hysterectomy (~1985) Status post cholecystectomy Family & Social History Family History Mother Stroke Hypertension Alcoholism Seizure Father Alcoholism Sister Cancer Social History: household members none Prior Living Arrangements Apartment/Condo Safety & Behavioral: Feels Safe in Current Yes Environment Been Physically Hurt or No Threatened By a Person Tobacco & Substance use: Smoking Status Current every day smoker alcohol intake current alcohol intake frequency 0-2 drinks per day Substance Use Type does not use Meds Home Medications and Allergies Home Medications Medication Instructions Recorded Confirmed Type inhalational spacing device #1 ea 06/07/19 04/04/22 Rx (Aerochamber MV spacer) calcium carbonate 300 mg (750 mg) 600 mg PO BID #90 tabs 11/01/20 04/04/22 Rx chewable tablet (Antacid Extra Strength (calcium carb)) alendronate 70 mg tablet (Fosamax) 70 mg PO QWEEK #12 tabs 11/12/21 04/04/22 Rx amlodipine 5 mg tablet 5 mg PO BID #180 tabs 11/12/21 04/04/22 Rx lisinopril 20 mg tablet 40 mg PO DAILY #180 tabs 11/12/21 04/04/22 Rx omeprazole 20 mg capsule,delayed 20 mg PO DAILY #90 caps 11/12/21 04/04/22 Rx release hydrocodone 5 mg-acetaminophen 325 1 tab PO Q6H PRN pain #14 tabs 03/30/22 04/04/22 Rx mg tablet Disabled Parking Permit 1 ea Not Applicable DIRECTED 04/04/22 04/04/22 History Allergies Allergy/AdvReac Type Severity Reaction Status Date / Time hydromorphone [HYDROMORPHONE] AdvReac Unknown Hallucinati Verified 04/04/22 11:2 1 ons Review of Systems Review of Systems Narrative: Fourteen system review was completed and pertinent findings in the history chief complaint. Exam Vital Signs (past 8 hours): - 04/04/22 11:17 04/04/22 11:11 04/04/22 11:12 Temperature 98.7 F Pulse Rate 102 H 114 H 110 H Respiratory Rate 22 Blood Pressure 161/100 H Pulse Oximetry 92 90 L 89 L Oxygen Delivery Method Room Air Room Air Oxygen Flow Rate 04/04/22 11:12 04/04/22 11:30 04/04/22 11:30 Temperature Pulse Rate 104 H Respiratory Rate 34 H Blood Pressure 161/100 H 152/91 H Pulse Oximetry 91 Oxygen Delivery Method Room Air Oxygen Flow Rate 04/04/22 12:00 04/04/22 12:28 04/04/22 13:10 Temperature Pulse Rate 105 H 98 H Respiratory Rate 25 H 14 Blood Pressure Pulse Oximetry 88 L 90 L 92 Oxygen Delivery Method Room Air Nasal Cannula Nasal Cannula Oxygen Flow Rate 2 2 04/04/22 12:30 04/04/22 12:30 04/04/22 13:00 Temperature Pulse Rate 97 H 102 H Respiratory Rate 18 22 Blood Pressure 135/80 Pulse Oximetry 93 88 L Oxygen Delivery Method Nasal Cannula Nasal Cannula Oxygen Flow Rate 2 2 04/04/22 13:30 04/04/22 13:30 Temperature Pulse Rate 106 H Respiratory Rate 22 Blood Pressure 157/85 H Pulse Oximetry 90 L Oxygen Delivery Method Nasal Cannula Oxygen Flow Rate 2 Oxygen Delivery Method Nasal Cannula Oxygen Flow Rate 2 Narrative Exam Narrative: General: cooperative, comfortable, in no acute medical distress, appears tired HEENT: symmetrical facial expressions, membranes, bilateral conjunctiva with thick white discharge, mucus membranes are dry Cardiovascular:? Tachycardic rate and regular rhythm, no peripheral edema, warm extremities Respiratory: normal effort, able to speak in complete sentences, without wheezing, stridor, diminished breath sounds on lower left, shallow respirations with rhonchi present GI: abdomen distended, nontender to palpation, without masses, rebound tenderness or exquisite tenderness with exam. Bowel sounds normal MSK: moves all extremities, neurovascularly intact, no weakness, normal tone pain with movement on the left side, tenderness to left ribs over fracture Skin: brisk capillary refill, without pallor or erythema Neuro: normal speech and cognition, A&O x3, ambulatory, clear speech Psych: mental status is grossly normal, congruent mood, normal affect, pleasant and cooperative, tends to downplay her level of pain Objective Labs Result Diagrams: 04/04/22 11:19 04/04/22 11:19 Labs: Laboratory Results - last 24 hr 04/04/22 04/04/22 04/04/22 11:19 11:19 11:19 WBC 17.6 H RBC 5.22 H Hgb 15.2 Hct 45.6 MCV 87.3 MCH 29.2 MCHC 33.4 RDW 14.1 Plt Count 325 Neut % (Auto) 90.4 H Lymph % (Auto) 3.4 L [place] % (Auto) 5.8 Eos % (Auto) 0.0 L Baso % (Auto) 0.4 Neut # (Auto) 36999 H Lymph # (Auto) 600 L Daniels # (Auto) 1000 H Eos # (Auto) 0 Baso # (Auto) 100 Sodium 139 Potassium 4.3 Chloride 99 Carbon Dioxide 31 BUN 29 H Creatinine 0.73 Estimated GFR > 60 BUN/Creatinine Ratio 39.7 H Glucose 126 H Lactate 1.4 Calcium 9.4 Total Bilirubin 2.0 H AST 27 ALT 22 Alkaline Phosphatase 85 Total Protein 7.9 Albumin 4.1 Globulin 3.8 Albumin/Globulin Ratio 1.1 Lipase 32 Procalcitonin 0.12 Urine Color Urine Appearance Urine pH Ur Specific [place] Urine Protein Urine Glucose (UA) Urine Ketones Urine Occult Blood Urine Nitrate Urine Bilirubin Ur Bilirubin Confirm Urine Urobilinogen Ur Leukocyte Esterase Urine RBC Urine WBC Ur Squamous Epith Cells Urine Bacteria Ur Culture Indicated? SARS-CoV-2 (PCR) 04/04/22 04/04/22 12:26 13:30 WBC RBC Hgb Hct MCV MCH MCHC RDW Plt Count Neut % (Auto) Lymph % (Auto) [place] % (Auto) Eos % (Auto) Baso % (Auto) Neut # (Auto) Lymph # (Auto) [place] # (Auto) Eos # (Auto) Baso # (Auto) Sodium Potassium Chloride Carbon Dioxide BUN Creatinine Estimated GFR BUN/Creatinine Ratio Glucose Lactate Calcium Total Bilirubin AST ALT Alkaline Phosphatase Total Protein Albumin Globulin Albumin/Globulin Ratio Lipase Procalcitonin Urine Color [place] Urine Appearance Sl cloudy Urine pH 7.0 Ur Specific [place] 1.010 Urine Protein 2+ H Urine Glucose (UA) Trace H Urine Ketones Trace H Urine Occult Blood 1+ H Urine Nitrate Negative Urine Bilirubin 1+ H Ur Bilirubin Confirm Negative Urine Urobilinogen 1.0 Ur Leukocyte Esterase 2+ H Urine RBC 5-10/hpf H Urine WBC 10-30/hpf H Ur Squamous Epith Cells 10-30 /hpf H Urine Bacteria Many (>30) H Ur Culture Indicated? Cult not indicated SARS-CoV-2 (PCR) Negative Assessment & Plan Assessment & Plan narrative: 1. Concern for urinary tract infection. Patient initiated on Levaquin 750 mg IV daily in the ER and this will be continued. Pending urine culture. 2. Displaced fractures of the left posterior 11th and 12th ribs. Provide pain control as needed. 3. Dependent atelectasis in the left upper lobe and left lower lobe likely related to mucosal plugging in the left mainstem bronchus. Risk for progression to pneumonia. Patient on Levaquin which should prevent progression. Follow clinically and with chest x-rays as needed. 4. Severe constipation. Sennosides at night. Lactulose daily. 5. Multilevel central height loss of multiple vertebral bodies of indeterminate age. Continue with pain control. 6. 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 No active treatment necessary. 7. Hypertension. Maintain patient's regular medication. 8. Osteoporosis. Continue alendronate as well as calcium and vitamin D3. Vitamin daily. 9. Reviewed maintain patient's regular medication of lisinopril. Follow clinically. 10. GERD. Continue patient's regular medication of omeprazole daily. 11. History of COPD. Treat with albuteral handheld and albuteral neb treatment as needed. 12. Smoker. Has smoked 1 pack per day since age 13. Daily treatment with nicotine patch 21 mg. Smoking cessation counseling given. Code: Do not resuscitate, do not intubate. Substitute decision maker: Shana Harrison DVT prophylaxis: Enoxaparin 40 mg subcu every 24 hours Time Spent With Patient Critical Care time: I spent a total of [] minutes of critical care time on this patient's care today; this time is exclusive of procedural time.
[2022-04-04] MEDS: HYDROCODONE/ACET 5/325 TABLET 1 TAB PO ×2 (16:53→22:30)
[2022-04-04] MEDS: NICOTINE 21 MG PATCH TOP (17:27)
[2022-04-04] MEDS: AMLODIPINE 5 MG TABLET PO (21:09)
[2022-04-04] MEDS: SENNOSIDES 8.6 MG TABLET 17.2 MG PO (21:09)
[2022-04-04] MEDS: CALCIUM CARBONATE 600 MG TABLET PO (21:10)
[2022-04-04] MEDS: ONDANSETRON 4 MG/2 ML INJ IV (23:53)
[2022-04-05] MEDS: HALOPERIDOL 5 MG/ML VIAL 1 MG IV (01:13)
[2022-04-05 01:55] VITALS: BP 128/79; PULSE 78; RESP 14; TEMP 36.4; O2SAT 94
[2022-04-05 05:48] LABS: Add Manual Diff / Slide Review NO; Basophils Absolute Auto 0 /uL (0-100); Basophils Percent Auto 0.3 % (0-2); Eosinophils Absolute Auto 0 /uL (0-450); Eosinophils Percent Auto 0.1 % (2-4); Hematocrit 38.9 % (36-46); Hemoglobin 13.3 g/dL (12.0-16.0); Lymphocytes Absolute Auto 600 /uL (1100-4500); Lymphocytes Percent Auto 5.2 % (25-40); Mean Corpuscular HGB Conc 34.2 % (30-36); Mean Corpuscular Hemoglobin 29.5 PG (26-34); Mean Corpuscular Volume 86.2 fL (80-100); Monocytes Absolute Auto 700 /uL (0-900); Monocytes Percent Auto 6.7 % (3-14); Neutrophils Absolute Auto 9600 /uL (1500-7000); Neutrophils Percent Auto 87.7 % (50-75); Platelet Count 278 X10^3/uL (150-400); Red Blood Cell Count 4.51 X10^6/uL (4.0-5.2); Red Cell Distribution Width 14.2 % (11.6-14.8); White Blood Cell Count 10.9 X10^3/uL (4.5-11.0)
[2022-04-05 05:51] LABS: Alanine Aminotransferase 15 IU/L (<35); Albumin 3.4 g/dL (3.5-5.0); Albumin Globulin Ratio 1.1 (1.0-2.8); Alkaline Phosphatase 70 U/L (38-126); Aspartate Aminotransferase 20 IU/L (14-36); BUN Creatinine Ratio 38.7 (6-22); Bilirubin Total 0.7 mg/dL (0.2-1.3); Blood Urea Nitrogen 29 mg/dL (7-17); C-Reactive Protein Quant 8.5 mg/dL (<1.0); Calcium 8.5 mg/dL (8.4-10.2); Carbon Dioxide 26 mmol/L (22-32); Chloride 102 mmol/L (98-107); Estimated Glomerular Filt Rate > 60 mL/min (>60); Glucose 128 mg/dL (80-110); HEMOLYSIS < 15 (0-50); Potassium 4.1 mmol/L (3.4-5.1); Sodium 137 mmol/L (137-145); Total Protein 6.4 g/dL (6.3-8.2)
[2022-04-05] MEDS: SODIUM CHLORIDE 0.9% 1,000 ML 100 ML IV ×2 (05:51→16:27)
[2022-04-05 07:15] VITALS: O2SAT 97
[2022-04-05 07:30] VITALS: BP 144/81; PULSE 86; RESP 16; TEMP 36.3; O2SAT 95
[2022-04-05] MEDS: NICOTINE 21 MG PATCH TOP (08:29)
[2022-04-05] MEDS: MULTIVITAMIN 1 TABLET 1 TAB PO (08:30)
[2022-04-05] MEDS: CALCIUM CARBONATE 600 MG TABLET PO ×2 (08:30→19:56)
[2022-04-05] MEDS: CHOLECALCIFEROL (VITAMIN D3) 1,000 UNIT TABLET 2000 UNIT PO (08:30)
[2022-04-05] MEDS: PANTOPRAZOLE DR 20 MG TABLET PO (08:30)
[2022-04-05] MEDS: lisinopriL 20 MG TABLET 40 MG PO (08:30)
[2022-04-05] MEDS: AMLODIPINE 5 MG TABLET PO ×2 (08:30→19:56)
[2022-04-05] MEDS: ENOXAPARIN 40 MG/0.4 ML SYRINGE SUBCUT (08:30)
[2022-04-05] MEDS: ONDANSETRON 4 MG/2 ML INJ IV (08:40)
--- NOTE | 2022-04-05 09:45 | PM.PN.1 ---
Subjective Subjective Interval history: She felt better this morning however after having a breakfast of full fluid has felt nauseous. Has anti nausea medication in place if needed. Exam Vital Signs (past 8 hours): - 04/05/22 01:55 04/05/22 07:15 04/05/22 07:30 Temperature 97.5 F L 97.4 F L Pulse Rate 78 86 Respiratory Rate 14 16 Blood Pressure 128/79 144/81 H Pulse Oximetry 94 97 95 Oxygen Delivery Method Nasal Cannula Oxygen Flow Rate 2 1.5 2 Oxygen Delivery Method Nasal Cannula Oxygen Flow Rate 2 Narrative Exam Narrative: General: cooperative, comfortable, in no acute medical distress HEENT: Eyes equal and reactive to light. Extraocular movements normal. Neck is supple. Trachea is midline, head is normocephalic. Cardiovascular:? Normal rate and regular rhythm, no peripheral edema, warm extremities Respiratory: normal effort, able to speak in complete sentences, without wheezing, stridor, diminished breath sounds on lower left, shallow respirations with some rhonchi present GI: abdomen distended, nontender to palpation, without masses, rebound tenderness or exquisite tenderness with exam.? Bowel sounds normal MSK: moves all extremities, neurovascularly intact, no weakness, normal tone pain with movement on the left side, tenderness to left ribs over fracture Skin: brisk capillary refill, without pallor or erythema Neuro: normal speech and cognition, A&O x3, ambulatory, clear speech Psych: mental status is grossly normal, congruent mood, normal affect Objective Labs Result Diagrams: 04/05/22 05:17 04/05/22 05:17 Labs: Laboratory Results - last 24 hr 04/04/22 04/04/22 04/04/22 11:19 11:19 11:19 WBC 17.6 H RBC 5.22 H Hgb 15.2 Hct 45.6 MCV 87.3 MCH 29.2 MCHC 33.4 RDW 14.1 Plt Count 325 Neut % (Auto) 90.4 H Lymph % (Auto) 3.[address] % (Auto) 5.8 Eos % (Auto) 0.0 L Baso % (Auto) 0.4 Neut # (Auto) 18215 H Lymph # (Auto) [address] [place] # (Auto) 1000 H Eos # (Auto) 0 Baso # (Auto) 100 Sodium 139 Potassium 4.3 Chloride 99 Carbon Dioxide 31 BUN 29 H Creatinine 0.73 Estimated GFR > 60 BUN/Creatinine Ratio 39.7 H Glucose 126 H Lactate 1.4 Calcium 9.4 Total Bilirubin 2.0 H AST 27 ALT 22 Alkaline Phosphatase 85 C-Reactive Protein Total Protein 7.9 Albumin 4.1 Globulin 3.8 Albumin/Globulin Ratio 1.1 Lipase 32 Procalcitonin 0.12 Urine Color Urine Appearance Urine pH Ur Specific [place] Urine Protein Urine Glucose (UA) Urine Ketones Urine Occult Blood Urine Nitrate Urine Bilirubin Ur Bilirubin Confirm Urine Urobilinogen Ur Leukocyte Esterase Urine RBC Urine WBC Ur Squamous Epith Cells Urine Bacteria Ur Culture Indicated? SARS-CoV-2 (PCR) 04/04/22 04/04/22 04/05/22 12:26 13:30 05:17 WBC 10.9 RBC 4.51 Hgb 13.3 Hct 38.9 MCV 86.2 MCH 29.5 MCHC 34.2 RDW 14.2 Plt Count 278 Neut % (Auto) 87.7 H Lymph % (Auto) 5.[address] [place] % (Auto) 6.7 Eos % (Auto) 0.1 L Baso % (Auto) 0.3 Neut # (Auto) 9600 H Lymph # (Auto) [address] [place] # (Auto) 700 Eos # (Auto) 0 Baso # (Auto) 0 Sodium Potassium Chloride Carbon Dioxide BUN Creatinine Estimated GFR BUN/Creatinine Ratio Glucose Lactate Calcium Total Bilirubin AST ALT Alkaline Phosphatase C-Reactive Protein Total Protein Albumin Globulin Albumin/Globulin Ratio Lipase Procalcitonin Urine Color [place] Urine Appearance Sl cloudy Urine pH 7.0 Ur Specific [place] 1.010 Urine Protein 2+ H Urine Glucose (UA) Trace H Urine Ketones Trace H Urine Occult Blood 1+ H Urine Nitrate Negative Urine Bilirubin 1+ H Ur Bilirubin Confirm Negative Urine Urobilinogen 1.0 Ur Leukocyte Esterase 2+ H Urine RBC 5-10/hpf H Urine WBC 10-30/hpf H Ur Squamous Epith Cells 10-30 /hpf H Urine Bacteria Many (>30) H Ur Culture Indicated? Cult not indicated SARS-CoV-2 (PCR) Negative 04/05/22 05:17 WBC RBC Hgb Hct MCV MCH MCHC RDW Plt Count Neut % (Auto) Lymph % (Auto) [place] % (Auto) Eos % (Auto) Baso % (Auto) Neut # (Auto) Lymph # (Auto) [place] # (Auto) Eos # (Auto) Baso # (Auto) Sodium 137 Potassium 4.1 Chloride 102 Carbon Dioxide 26 BUN 29 H Creatinine 0.75 Estimated GFR > 60 BUN/Creatinine Ratio 38.7 H Glucose 128 H Lactate Calcium 8.5 Total Bilirubin 0.7 AST 20 ALT 15 Alkaline Phosphatase 70 C-Reactive Protein 8.5 H Total Protein 6.4 Albumin 3.4 L Globulin 3.0 Albumin/Globulin Ratio 1.1 Lipase Procalcitonin Urine Color Urine Appearance Urine pH Ur Specific [place] Urine Protein Urine Glucose (UA) Urine Ketones Urine Occult Blood Urine Nitrate Urine Bilirubin Ur Bilirubin Confirm Urine Urobilinogen Ur Leukocyte Esterase Urine RBC Urine WBC Ur Squamous Epith Cells Urine Bacteria Ur Culture Indicated? 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) Osteopenia Osteoporosis Perforated viscus (09/03/16) Pure hypercholesterolemia (11/23/15) Sebaceous cyst Seborrheic keratosis (11/23/15) Seizure disorder (09/30/16) Tobacco abuse Urinary frequency Vitamin B12 deficiency (Unknown) Surgical History Anesthesia History of colonoscopy History of partial hysterectomy (~1985) Status post cholecystectomy Family History Mother Stroke Hypertension Alcoholism Seizure Father Alcoholism Sister Cancer Social History household members: none Smoking Status: Current every day smoker alcohol intake: current substance use type: does not use Assessment & Plan Assessment & Plan narrative: 1. Concern for urinary tract infection.? Patient initiated on? Levaquin 750 mg IV daily in the ER and this will be continued.? Urine culture proven negative however is also on Levaquin for concern for pneumonia. Will continue Levaquin. 2. Displaced fractures of the left posterior 11th and 12th ribs.? Provide pain control as needed. 3. Dependent atelectasis in the left upper lobe and left lower lobe likely related to mucosal plugging in the left mainstem bronchus.? Risk for progression to pneumonia.? Patient on Levaquin which should prevent progression.? Follow clinically and with chest x-rays as needed. 4. Severe constipation.? Sennosides at night.? Lactulose daily. Improving. 5. Multilevel central height loss of multiple vertebral bodies of indeterminate age.? Continue with pain control. 6. 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 No active treatment necessary. 7. Hypertension.? Reasonable control. Maintain patient's regular medication of lisinopril 40 mg daily. 8. Osteoporosis.? Continue alendronate as well as calcium and vitamin D3.? Vitamin daily. 9. Reviewed maintain patient's regular medication of lisinopril.? Follow clinically. 10. GERD.? Continue patient's regular medication of omeprazole daily. 11. History of COPD.? Treat with albuteral handheld and albuteral neb treatment as needed.? 12. Smoker.? Has smoked 1 pack per day since age 13.? Daily treatment with nicotine patch 21 mg.? Smoking cessation counseling given. Code:? Do not resuscitate, do not intubate. Substitute decision maker:? Shana Harrison DVT prophylaxis:? Enoxaparin 40 mg subcu every 24 hours Time Spent With Patient Critical Care time: I spent a total of [] minutes of critical care time on this patient's care today; this time is exclusive of procedural time. Quality VTE Deep Vein Thrombosis/Pulmonary Embolism Present on Admission: No
--- NOTE | 2022-04-05 11:17 | PT.IIE ---
Surgical History (Last Reviewed 04/04/22 @ 12:34 by Radha Ling [facility]) Anesthesia History of colonoscopy History of partial hysterectomy (~1985) Status post cholecystectomy Medical History (Last Reviewed 04/04/22 @ 12:34 by Radha Ling 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) Osteopenia Osteoporosis Perforated viscus (09/03/16) Pure hypercholesterolemia (11/23/15) Sebaceous cyst Seborrheic keratosis (11/23/15) Seizure disorder (09/30/16) Tobacco abuse Urinary frequency Vitamin B12 deficiency (Unknown) Physical Therapy Inpatient Evaluation/Re-Eval M1 PT/OT-IP Prior Functional Status Start: 04/05/22 13:50 Freq: NEEDED Status: Active Protocol: Document 04/05/22 11:17 AB (Rec: 04/05/22 14:01 [email or web address]) Medical Review Prior Functional Status Medical History Reviewed Yes Communication able to make needs known Mobility and Gait pt stated that she is modified independent with all mobilities and ambulation using 2 SPC Social History Household Members none Living Arrangements House Number of Floors (Floors) Two Floors Number of Stairs To Enter/Railing? 4 steps without rails to enter 18 steps L rail+ R wall ascending to get to bedroom level Home Environment Standard Height Toilet,Tub/ Shower Home Equipment Front Wheel Walker,Straight Cane,Tub Transfer Bench,Hand Held Shower,Grab Bars In Shower M2 PT-IP Current Condition Start: 04/05/22 13:50 Freq: NEEDED Status: Active Protocol: Document 04/05/22 11:17 AB (Rec: 04/05/22 14:01 [email or web address]) Physical Therapy Current Condition Current Condition Evaluation Date 09/23/22 Treatment Diagnosis GLF; L rib fx; pleural effusion; difficulty in walking Onset Date 04/04/22 M3 PT-IP Subjective Start: 04/05/22 13:50 Freq: NEEDED Status: Active Protocol: Document 04/05/22 11:17 AB (Rec: 04/05/22 14:01 AB [email or web address]) Subjective Physical Therapy Visit Type Type Initial Evaluation Visit Start Time 11:17 Visit Stop Time 11:46 Total Visit Minutes 29 Number of [employer] Visits 0 Physical Therapy Visit Comments Patient Comments pt agreeable to do PT Therapy Pain Assessment Pain Present Pain Present Denied Pain M4 PT-IP Mobility and Gait Start: 04/05/22 13:50 Freq: NEEDED Status: Active Protocol: Document 04/05/22 11:17 AB (Rec: 04/05/22 14:01 AB [email or web address]) PT-Bed Mobility Assessment Supine to Sit Supine to Sit Standby Assistance PT-Transfer Assessment Sit to and From Stand Sit to and from Stand Moderate Assistance,1 Person Assistance,Use of Upper Extremities Equipment Transfer Assistive Device Gait Belt,Front Wheeled Walker Orthotic/Prosthetic Devices or Brace: No Transfers Transfer Destination Chair Transfer Technique ambulated Transfer Ability Level of Assist Moderate Assistance,1 Person Assistance,Use of Upper Extremities Comments Mobility Comments completed supine to sit SBA. able to sit on EOB SBA. completed sit to stand mod A and ambulated in room ~ 5 ft and needs to sit back down. presents with unsteady shuffling gait. positioned pt on the chair. call light and table placed within reach. Gait Assessment Gait Gait Assistance Required: Moderate Assistance,1 Person Assist Distance (Feet) 5 Able to Maintain Weight Bearing Status No During Gait Assistive Devices Assistive Device Gait Belt,Front Wheeled Walker Orthotic/Prosthetic Devices or Brace: No Gait Deviations General Gait Pattern Decreased Stride Length, Decreased Feet Clearance Factors Limiting Gait Function Factors Limiting Gait Function Decreased Activity Tolerance, Decreased Strength,Difficulty Following Directions,Limited Range of Motion,Poor Balance, Poor Safety Awareness PT-Balance Assessment Sitting Balance and Reactions Static Sitting Balance Ability Good Dynamic Sitting Balance Ability Good Standing Balance and Reactions Static Standing Balance Ability Fair Dynamic Standing Balance Ability Poor Device Used FWW M5 PT-IP Objective Assessments Start: 04/05/22 13:50 Freq: NEEDED Status: Active Protocol: Document 04/05/22 11:17 AB (Rec: 04/05/22 14:01 AB [email or web address]) Orientation Orientation/Cognition Level of Alertness Alert Orientation Name,Place,Situation Safety Awareness Decreased Safety Awareness Memory Description Short Term Impaired Gross Range of Motion Lower Extremity ROM Assessment Within Functional Limits Strength Lower Extremity Strength Assessment Bilaterally Impaired Hip 3+/5 Knee 3+/5 Muscle Tone Muscle Tone WNL Yes M6 PT-IP Treatment Start: 04/05/22 13:50 Freq: NEEDED Status: Active Protocol: Document 04/05/22 11:17 AB (Rec: 04/05/22 14:01 AB [id number]) Physical Therapy Treatment Education Education Provided Safety M7 PT-IP Assessment and Plan Start: 04/05/22 13:50 Freq: NEEDED Status: Active Protocol: Document 04/05/22 11:17 AB (Rec: 04/05/22 14:01 AB [id number]) PT Summary Assessment and Plan Potential Rehabilitation Potential Fair Status of Condition at Evaluation Evolving Summary Impairments Pain,ROM,Strength,Balance, Coordination,Sensation,Tone, Cognition,Bed Mobility, Transfers,Gait,Activity Tolerance Assessment Summary pt requiring mod A with ambulation using FWW but only able to walk ~ 5 ft and has to sit back down. pt with decrease activity tolerance affecting mobility independence. pt will require SNF rehab at this time to improve overall strength and function. Goals Bed Mobility Goal Independent Transfer Goal Standby Assistance,Front Wheeled Walker Gait Goal Standby Assistance,Front Wheel Walker Gait Distance 100 Other Goals improve transfers and ambulation ~150 ft using 2 SPC mod I up/down 4 steps using 2 SPC SBA up/down 18 steps L rail ascending SBA Days to Meet Goals 10 Frequency of Treatment Frequency Of Treatment Once a Day Treatment Plan Physical Therapy Treatment Plan Bed Mobility Training,Transfer Training,Gait Training, Therapeutic Exercise,Balance Retraining,Discharge Planning, Hot or Cold Pack,Neuromuscular Re-ed,Coordination Retraining ,Manual Therapy Precautions Other Precautions falls Recommendations To Nursing Amount of Assist Needed 1 Person Assist Discharge Recommendations PT Discharge Recommendations SNF Rehab Transportation Needs at Discharge Wheelchair/Cabulance
--- NOTE | 2022-04-05 11:47 | CM.DPNOTE ---
DCP Note Reviewed chart. Met w/patient this morning to review DCP options and patient agrees she needs addtl assistance and is agreeable to attempt at SNF placement, has no preference except no to [facility] Patient requests this CM team update dtr Shana as discharge planning efforts continue Patient states she makes approx $1,200 in monthly income; this MEDICAL CLAIMS MANAGER strongly suggests she and dtr complete the SHANTEL/AUBREY keshav CHACE Garcia CMA, has kindly agreed to fax to SNFs. Therapy evals are currently pending Patient has Frank and so will need to have a clearly defined skilled need in order to be authorized for SNF stay CM team following closely for coordination of the safest plan available to patient. CEDRICK completed JW
--- NOTE | 2022-04-05 17:44 | DIET.CONS ---
Dietary Consultation Note Admission Date: 04/04/2022 14:35 Assessment: 76 y/o F admitted with rib fx, risk for pneumonia, and PMH of COPD. States she cancelled her MOW due to not being able to eat their meals with her dentures. Currently on clear liq diet due to nausea this morning per staff. Pt unsure why she is no clears. Will advance diet to incorporate more protein foods. She is open to shakes with fruit. Significant wt loss over 1 month (-14.18kg or 29% with wt of 48.081kg on 02/19/22) States her weight loss started after CVA 1 mo ago, which left her unable to cook. States she eats one meal per day of spam and eggs, when she gets the energy to get up. States she will have her daughter to help her after d/c. Nutrition focused physical exam: severe depressed temples, orbital area, interosseous muscle, and prominent boxed shoulders. BMI low for age <21 Ht: 154.94 cm Wt: 47.7 kg BMI: 14.1 UBW: 52kg reported (48-52kg per EMR) Last BM: 04/04/22 (04/04/22 14:38) MNA: 5 Pj Score: 18 Diet: 04/04/22 Dinner Clear Liquid Diet Diet Modifications: Nutrition Percent Meal Consumed 0% 04/05/22 09:30 Percent Meal Consumed 25% 04/04/22 18:40 Labs: RBC 4.51 X10^6/uL (4.0-5.2) 04/05/22 05:17 Hgb 13.3 g/dL (12.0-16.0) 04/05/22 05:17 Hct 38.9 % (36-46) 04/05/22 05:17 Creatinine 0.75 mg/dL (0.52-1.04) 04/05/22 05:17 Lactate 1.4 mmol/L (0.7-2.1) 04/04/22 11:19 Nutrition Diagnosis: Severe Acute protein calorie malnutrition r/t unable to cook for herself since CVA aeb pt report of <50% EER over 1 month, physical signs of muscle and fat loss, low for age BMI, and >5% wt loss over 1 month Interventions: 1. Change diet to regular and kitchen will work with her on meals 2. Protein shake with fruit TID EER: 1400-1500kcals (40-45kcal/kg per BMI) 61-70g PRO (1.8-2g/kg per malnutrition) Monitoring/Evaluations: PO, Shake tolerance, weight Electronically Signed by: Kiesha Bai 04/05/22 17:44 Clinical Dietitian [address] [id number]
[2022-04-05 19:36] VITALS: PULSE 90; RESP 18; O2SAT 92
[2022-04-05] MEDS: SENNOSIDES 8.6 MG TABLET 17.2 MG PO (19:56)
[2022-04-05 20:00] VITALS: BP 161/88; PULSE 92; RESP 17; TEMP 37.1; O2SAT 94
[2022-04-06] MEDS: SODIUM CHLORIDE 0.9% 1,000 ML 100 ML IV (02:53)
[2022-04-06] MEDS: HYDROCODONE/ACET 5/325 TABLET 1 TAB PO ×2 (02:55→11:20)
[2022-04-06] MEDS: PANTOPRAZOLE DR 20 MG TABLET PO (05:12)
[2022-04-06 07:53] VITALS: PULSE 72; RESP 18; O2SAT 97
[2022-04-06 08:01] VITALS: BP 123/77; PULSE 90; RESP 17; TEMP 36.6; O2SAT 95
[2022-04-06] MEDS: lisinopriL 20 MG TABLET 40 MG PO (08:26)
[2022-04-06] MEDS: LACTULOSE 20 GM/30 ML SOLUTION PO (08:26)
[2022-04-06] MEDS: AMLODIPINE 5 MG TABLET PO ×2 (08:26→21:43)
[2022-04-06] MEDS: CALCIUM CARBONATE 600 MG TABLET PO ×2 (08:26→21:43)
[2022-04-06] MEDS: CHOLECALCIFEROL (VITAMIN D3) 1,000 UNIT TABLET 2000 UNIT PO (08:27)
[2022-04-06] MEDS: NICOTINE 21 MG PATCH TOP (08:27)
[2022-04-06] MEDS: MULTIVITAMIN 1 TABLET 1 TAB PO (08:27)
[2022-04-06] MEDS: ENOXAPARIN 40 MG/0.4 ML SYRINGE SUBCUT (08:27)
--- NOTE | 2022-04-06 08:33 | CM.DPC ---
Addendum entered by Brooklyn Hein R.N. 04/06/22 11:54: Updated patient about [facility] possibly accepting patient tomorrow, and that [facility] can't accept until Friday. Addendum entered by Brooklyn Hein R.N. 04/06/22 11:47: Spoke to Vielka at [facility], and stated that her partner received clinicals, and will review today. Stated, she should have an answer. December at [facility] has indicated, due to staffing issues, can't take patient today. Tomorrow, may not be able to accept, for she can accept another patient at this hospital and would make too many admissions for them, so Friday. Called some other facilities as back up. It is noted that patient does not want to go to [facility], but all others ok. Called both [facility] and left a message. Called [facility], and talked to Thu in admissions. Stated, once auth is in, should be able to take her tomorrow, they have 4 beds available. She did receive clinicals, and will review today, and will get back to this DC Gear Roller. Will call her back if auth is received from [facility]. Addendum entered by Brooklyn Hein R.N. 04/06/22 08:58: Patient is willing to go to [facility] if needed. Called [facility], week-end transplant case manager is Vielka Mays. Her number is: [phone]. Vielka stated she had no information on patient, clinical information. Faxed her over face sheet, H&P, latest progress note, x-rays, and P.T. note from yesterday. Will follow up with a call today. Original Note: DCP Cont: Spoke to Asuncion at [facility]. She received the referral, stated, she can only accept today, will not be able to accept tomorrow due to the amount of admissions. Will need to follow up with patient, and discuss during team rounds. Faxed yesterday's note to [facility]. Will also need to follow up with [facility] transplant case manager for referral. P: DCP to continue to follow. Plan is either skilled or home. It is noted that Opal, HEAD CORRECTION OFFICER, gave information to daughter regarding Medicaid application for [facility] care. Will follow up with patient. Brooklyn Hein RN/Decorative Engraver Apprentice
--- NOTE | 2022-04-06 09:07 | P.PN_ITS ---
Subjective Subjective Date Patient Seen: 04/06/22 Time Patient Seen: 10:00 Interval history: Patient feels well and has no complaints. Rib pain is well controlled. She had a BM yesterday. Exam Vital Signs (past 8 hours): - 04/06/22 07:53 04/06/22 08:01 Temperature 98 F Pulse Rate 72 90 Respiratory Rate 18 17 Blood Pressure 123/77 Pulse Oximetry 97 95 Oxygen Delivery Method Nasal Cannula Oxygen Flow Rate 1.5 2 Fraction of Inspired Oxygen 25 Fraction of Inspired Oxygen 25 SaO2/FiO2 Ratio 388 Oxygen Delivery Method Nasal Cannula Oxygen Flow Rate 2 Narrative Exam Narrative: General: cooperative, comfortable, in no acute medical distress HEENT: Eyes equal and reactive to light. Extraocular movements normal. Neck is supple. Trachea is midline, head is normocephalic. Cardiovascular:? Normal rate and regular rhythm, no peripheral edema, warm extremities Respiratory: normal effort, able to speak in complete sentences, without wheezing, stridor, diminished breath sounds on lower left, shallow respirations with some rhonchi present GI: abdomen slightly distended and tympanic, nontender to palpation, without masses, rebound tenderness or exquisite tenderness with exam.? Bowel sounds normal MSK: moves all extremities, neurovascularly intact, no weakness, normal tone pain with movement on the left side, tenderness to left ribs over fracture Skin: brisk capillary refill, without pallor or erythema Neuro: normal speech and cognition, A&O x3, ambulatory, clear speech Psych: mental status is grossly normal, congruent mood, normal affect Objective Labs Result Diagrams: 04/05/22 05:17 04/05/22 05:17 [facility] Medical History Abdominal pain Advance care planning Bilateral low back pain without sciatica (11/23/15) Chronic back pain (Unknown) Chronic constipation Cobalamin deficiency (01/11/16) Constipation (11/23/15) COPD (chronic obstructive pulmonary disease) Dizziness (11/05/16) FRAZIER (dyspnea on exertion) Excessive daytime sleepiness (01/11/16) Frailty syndrome in geriatric patient History of seizure (Unknown) History of stroke (11/23/15) Hx of gastric ulcer (08/2016) Hypercholesterolemia (Unknown) Hypertension (Unknown) 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) Osteopenia Osteoporosis Perforated viscus (09/03/16) Pure hypercholesterolemia (11/23/15) Sebaceous cyst Seborrheic keratosis (11/23/15) Seizure disorder (09/30/16) Tobacco abuse Urinary frequency Vitamin B12 deficiency (Unknown) Surgical History Anesthesia History of colonoscopy History of partial hysterectomy (~1985) Status post cholecystectomy Family History Mother Stroke Hypertension Alcoholism Seizure Father Alcoholism Sister Cancer Social History household members: none Smoking Status: Current every day smoker alcohol intake: current substance use type: does not use Assessment & Plan Assessment & Plan narrative: 1. UTI ruled out. Stop levaquin with negative culture. 2. Displaced fractures of the left posterior 11th and 12th ribs.? Provide pain control as needed. 3. Dependent atelectasis in the left upper lobe and left lower lobe likely related to mucosal plugging in the left mainstem bronchus.? Risk for progression to pneumonia.? Continue incentive spirometry. 4. Severe constipation.? Sennosides at night.? Lactulose daily. Improving and had BM on 04/05. 5. Multilevel central height loss of multiple vertebral bodies of indeterminate age.? Continue with pain control. 6. 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 No active treatment necessary. 7. Hypertension.? Reasonable control. Maintain patient's regular medication of lisinopril 40 mg daily. 8. Osteoporosis.? Continue alendronate as well as calcium and vitamin D3.? Vitamin daily. 9. Reviewed maintain patient's regular medication of lisinopril.? Follow clinically. 10. GERD.? Continue patient's regular medication of omeprazole daily. 11. History of COPD.? Treat with albuteral handheld and albuteral neb treatment as needed.? 12. Smoker.? Has smoked 1 pack per day since age 13.? Daily treatment with nicotine patch 21 mg.? Smoking cessation counseling given. Code:? Do not resuscitate, do not intubate. Substitute decision maker:? Shana Harrison DVT prophylaxis:? Enoxaparin 40 mg subcu every 24 hours Dispo: To SNF on 04/07. Time Spent With Patient Critical Care time: I spent a total of [] minutes of critical care time on this patient's care today; this time is exclusive of procedural time. Quality VTE Deep Vein Thrombosis/Pulmonary Embolism Present on Admission: No
--- NOTE | 2022-04-06 11:30 | PT.IPTN ---
Physical Therapy Treatment Note M2 PT-IP Current Condition Start: 04/05/22 13:50 Freq: NEEDED Status: Active Protocol: Document 04/05/22 11:17 AB (Rec: 04/05/22 14:01 AB [id number]) Physical Therapy Current Condition Current Condition Evaluation Date 04/05/22 Treatment Diagnosis GLF; L rib fx; pleural effusion; difficulty in walking Onset Date 04/04/22 M3 PT-IP Subjective Start: 04/05/22 13:50 Freq: NEEDED Status: Active Protocol: Document 04/06/22 11:10 KS (Rec: 04/06/22 13:12 KS [id number]) Subjective Physical Therapy Visit Type Type Treatment Note Visit Start Time 11:10 Visit Stop Time 11:30 Total Visit Minutes 20 Number of GAS OPERATOR Visits 1 Physical Therapy Visit Comments Patient Comments pt agreeable to do PT Therapy Pain Assessment Pain When Pain Assessed During Mobility Pain Present Pain Present Pain Reported Location Left Ribs Intensity 4 Scale Used Numeric (0 - 10) Pain Behaviors Facial Grimacing,Guarding, Wincing Pain Management Techniques Distraction,Modification of Treatment,Re-positioning M4 PT-IP Mobility and Gait Start: 04/05/22 13:50 Freq: NEEDED Status: Active Protocol: Document 04/06/22 11:10 KS (Rec: 04/06/22 13:12 KS [id number]) PT-Bed Mobility Assessment Supine to Sit Supine to Sit Moderate Assistance,1 Person Assistance,Head of Bed Elevated Sit to Supine Sit to Supine Minimal Assistance,1 Person Assistance Scooting Scooting to Edge of Bed Moderate Assistance PT-Transfer Assessment Sit to and From Stand Sit to and from Stand Minimal Assistance,1 Person Assistance,Use of Upper Extremities Equipment Transfer Assistive Device Gait Belt,Front Wheeled Walker Orthotic/Prosthetic Devices or Brace: No Transfers Transfer Destination Bed Transfer Technique sit<>stand Transfer Ability Level of Assist Minimal Assistance,Moderate Assistance,1 Person Assistance ,Use of Upper Extremities Comments Mobility Comments Pt in bed upon arrival on O2, agreeable to mobilize. Pt required Mod A for sup<>Sit and scooting EOB and c/o 4/10 pain. O2 92-94%. Pt required Min A for sit<>stand w/ FWW, she had posterior lean but was able to correct w/ Min A and cues. She also requires cues for hand placemet on FWW as she attempts to hold onto front of FWW. Pt able to perform minimal marching in place, however becomes SOB and O2 desat to 85%. Pt sat EOB and O2 reocvered to 90% in ~3 min and she completed LE exercises including ankle pumps, LAQs, and seated marching - desat again to 86- 87%, pt requesting to get back into bed and stated she was uncomfortable while in chair. Pt left in bed w/ all needs in reach. Gait Assessment Comments Gait Comments Side step towards HOB only, Min A. PT-Balance Assessment Sitting Balance and Reactions Static Sitting Balance Ability Good Dynamic Sitting Balance Ability Good Standing Balance and Reactions Static Standing Balance Ability Fair Dynamic Standing Balance Ability Poor Device Used FWW M5 PT-IP Objective Assessments Start: 04/05/22 13:50 Freq: NEEDED Status: Active Protocol: Document 04/05/22 11:17 AB (Rec: 04/05/22 14:01 AB [id number]) Orientation Orientation/Cognition Level of Alertness Alert Orientation Name,Place,Situation Safety Awareness Decreased Safety Awareness Memory Description Short Term Impaired Gross Range of Motion Lower Extremity ROM Assessment Within Functional Limits Strength Lower Extremity Strength Assessment Bilaterally Impaired Hip 3+/5 Knee 3+/5 Muscle Tone Muscle Tone WNL Yes M6 PT-IP Treatment Start: 04/05/22 13:50 Freq: NEEDED Status: Active Protocol: Document 04/06/22 11:10 KS (Rec: 04/06/22 13:12 KS [id number]) Physical Therapy Treatment Exercises Exercises Ankle Pumps Education Education Provided Safety Other Treatments Other Treatment Performed LAQs, seated marching M7 PT-IP Assessment and Plan Start: 04/05/22 13:50 Freq: NEEDED Status: Active Protocol: Document 04/06/22 11:10 KS (Rec: 04/06/22 13:12 KS [id number]) PT Summary Assessment and Plan Potential Rehabilitation Potential Fair Summary Impairments Pain,ROM,Strength,Balance, Coordination,Sensation,Tone, Cognition,Bed Mobility, Transfers,Gait,Activity Tolerance Progress Towards Goals Slow Progress due to Medical Issues,Slow Progress due to Activity Tolerance Assessment Summary Pt remains limited by weakness , low actvity tolerance, poor balance, and SOB and pain from rib fxs. She desat to 85% during marching in place and required Mod A for bed mobility today. She lives alone and is not safe to d/c home and will require SNF to improve functional mobility independence and strength. Goals Bed Mobility Goal Independent Transfer Goal Standby Assistance,Front Wheeled Walker Gait Goal Standby Assistance,Front Wheel Walker Gait Distance 100 Other Goals improve transfers and ambulation ~150 ft using 2 SPC mod I up/down 4 steps using 2 SPC SBA up/down 18 steps L rail ascending SBA Days to Meet Goals 10 Frequency of Treatment Frequency Of Treatment Once a Day Treatment Plan Physical Therapy Treatment Plan Bed Mobility Training,Transfer Training,Gait Training, Therapeutic Exercise,Balance Retraining,Discharge Planning, Hot or Cold Pack,Neuromuscular Re-ed,Coordination Retraining ,Manual Therapy Precautions Other Precautions falls Recommendations To Nursing Amount of Assist Needed 1 Person Assist Discharge Recommendations PT Discharge Recommendations SNF Rehab Transportation Needs at Discharge Wheelchair/Cabulance
[2022-04-06] MEDS: ONDANSETRON 4 MG/2 ML INJ IV (13:03)
--- NOTE | 2022-04-06 14:41 | OT.IP.EVAL ---
Past Medical History (Last Reviewed 04/04/22 @ 12:34 by Radha Ling [facility]) Abdominal pain Advance care planning Bilateral low back pain without sciatica (11/23/15) Chronic back pain (Unknown) Chronic constipation Cobalamin deficiency (01/11/16) Constipation (11/23/15) COPD (chronic obstructive pulmonary disease) Dizziness (11/05/16) FRAZIER (dyspnea on exertion) Excessive daytime sleepiness (01/11/16) Frailty syndrome in geriatric patient History of seizure (Unknown) History of stroke (11/23/15) Hx of gastric ulcer (08/2016) Hypercholesterolemia (Unknown) Hypertension (Unknown) 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) Osteopenia Osteoporosis Perforated viscus (09/03/16) Pure hypercholesterolemia (11/23/15) Sebaceous cyst Seborrheic keratosis (11/23/15) Seizure disorder (09/30/16) Tobacco abuse Urinary frequency Vitamin B12 deficiency (Unknown) Surgical History (Last Reviewed 04/04/22 @ 12:34 by Radha Ling, [facility]) Anesthesia History of colonoscopy History of partial hysterectomy (~1985) Status post cholecystectomy Occupational Therapy Inpatient Evaluation/Re-Eval M1 PT/OT-IP Prior Functional Status Start: 04/05/22 13:50 Freq: NEEDED Status: Active Protocol: Document 04/06/22 15:05 CGR (Rec: 04/06/22 15:28 CGR [id number]) Medical Review Prior Functional Status Medical History Reviewed Yes Communication able to make needs known Mobility and Gait pt stated that she is modified independent with all mobilities and ambulation using 2 SPC Activities of Daily Living and IADL's Pt states that she was IND in all ADLs prior to recent falls . Pt states that she has assist with transportation. Social History Household Members none Living Arrangements House Number of Floors (Floors) Two Floors Number of Stairs To Enter/Railing? 4 steps without rails to enter 18 steps L rail+ R wall ascending to get to bedroom level Home Environment Standard Height Toilet,Tub/ Shower Home Equipment Front Wheel Walker,Straight Cane,Tub Transfer Bench,Hand Held Shower,Grab Bars In Shower Employment Status Retired Additional Social History Comment Pt lives alone and states she has friends that assist with transportation as needed. M1 PT/OT-IP Prior Functional Status Start: 04/06/22 15:04 Freq: NEEDED Status: Active Protocol: Document 04/06/22 15:05 CGR (Rec: 04/06/22 15:28 CGR [id number]) Medical Review Prior Functional Status Medical History Reviewed Yes Communication able to make needs known Mobility and Gait pt stated that she is modified independent with all mobilities and ambulation using 2 SPC Activities of Daily Living and IADL's Pt states that she was IND in all ADLs prior to recent falls . Pt states that she has assist with transportation. Social History Household Members none Living Arrangements House Number of Floors (Floors) Two Floors Number of Stairs To Enter/Railing? 4 steps without rails to enter 18 steps L rail+ R wall ascending to get to bedroom level Home Environment Standard Height Toilet,Tub/ Shower Home Equipment Front Wheel Walker,Straight Cane,Tub Transfer Bench,Hand Held Shower,Grab Bars In Shower Employment Status Retired Additional Social History Comment Pt lives alone and states she has friends that assist with transportation as needed. M2 OT-IP Current Condition Start: 04/06/22 15:04 Freq: Status: Active Protocol: Document 04/06/22 15:05 CGR (Rec: 04/06/22 15:28 CGR [id number]) Occupational Therapy Current Condition Current Condition Evaluation Date 04/06/22 Treatment Diagnosis fall, UTI, PNA, rib fx Diagnosis Onset Date 04/04/22 M3 OT- IP Subjective and Pain Start: 04/06/22 15:04 Freq: Status: Active Protocol: Document 04/06/22 15:05 CGR (Rec: 04/06/22 15:28 CGR [id number]) OT- Subjective Occupational Therapy Visit Type Type Initial Evaluation Visit Start Time 14:00 Visit Stop Time 14:41 Total Visit Minutes 41 OT Pain Assessment Pain When Pain Assessed At Rest Pain Present Pain Present Denied Pain M4 OT- IP ADL's Start: 04/06/22 15:04 Freq: Status: Active Protocol: Document 04/06/22 15:05 CGR (Rec: 04/06/22 15:28 CGR [id number]) OT [id number] Comments OT Self-Feeding Comments not meal time OT ADL-Grooming General Evaluation Grooming Ability Standby Assistance Areas Needing Assistance Combing/Brushing Hair,Face Washing Comments OT Grooming Comments standing at sink OT ADL-Oral Care General Eval Oral Care Ability Moderate Assistance Areas of Assistance Managing Dentures Comments Oral Care Comments Pt removed dentures standing at sink and left for soaking. Once returned to bed, pt asked if this designer/writer would clean her dentures and bring them to her. Pt returned dentures to mouth. OT ADL-Dressing Comments OT Dressing Comments not performed OT ADL-Toileting General Evaluation Toileting Ability Minimal Assistance Areas Needing Assistance Manage Clothing Comments OT Toileting Comments Pt attemtped BM seated on toilet but was unable. Pt needed assist with getting her brief up after toileting. OT ADL-Bathing Comments OT Bathing Comments not performed M5 OT- IP IADL's Start: 04/06/22 15:04 Freq: Status: Active Protocol: Document 04/06/22 15:05 CGR (Rec: 04/06/22 15:28 CGR [id number]) OT-Instrumental Activities of Daily Living Deficits IADL Deficits Identified No Deficits Home Safety Awareness Awareness of Need for Assistance at Home Good Awareness Ability to Problem Solve Emergency Able to Problem Solve Situations Medication Management Medication Management No Deficits Identified Money Management Money Management No Deficits Identified Meal Preparation Meal Preparation Comments Pt states that cooking has been difficult lately Driving Driving Comments Pt does not drive. M6 OT- IP Functional Cognition Start: 04/06/22 15:04 Freq: Status: Active Protocol: Document 04/06/22 15:05 CGR (Rec: 04/06/22 15:28 CGR [id number]) Cognitive Factors Limiting Selfcare Function Cognitive Ability Level of Alertness Alert Patient Orientation Name,Age,Birthday,Date,Year, Day of Week,Place,Situation Attention Span Ability Capable of Focused Attention, Capable of Sustained Attention Cognitive Comments Cognitive Assessment Comments Pt states that it is the 06 of May. OT- Vision and Hearing OT- Hearing Assessment OT- Hearing Assessment WFL OT- Vision Assessment Visual Acuity WFL Visual Attentiveness WFL Occular Pursuits WFL Visual Convergence WFL Vision Assessment Comments Pt states she use to have glasses for reading but she no longer reads because she has poor lighting in her house. M7 OT- IP Mobility and Balance Start: 04/06/22 15:04 Freq: Status: Active Protocol: Document 04/06/22 15:05 CGR (Rec: 04/06/22 15:28 CGR [id number]) OT- Bed Mobility Assessment Supine to Sit Supine to Sit Assist Moderate Assistance Sit to Supine Sit to Supine Assist Minimal Assistance Scooting Scooting to Edge of Bed Minimal Assistance OT-Transfer Assessment Sit to and From Stand Sit to and from Stand Contact Guard Assistance Transfers Transfer Ability Contact Guard Assistance Technique Transfer Destination Bed,Toilet Transfer Technique Stand Step Pivot Devices Transfer Assistive Devices Gait Belt,Front Wheeled Walker Comments Mobility Comments Pt is able to ambulate to toilet then to sink OT- Balance Assessment Sitting Balance and Reactions Static Sitting Balance Ability Good Dynamic Sitting Balance Ability Good M8 OT- IP Objective Assessments Start: 04/06/22 15:04 Freq: Status: Active Protocol: Document 04/06/22 15:05 CGR (Rec: 04/06/22 15:28 CGR [id number]) OT Gross Range of Motion Upper Extremity Range of Motion Assessment Within Functional Limits OT Strength Upper Extremity Strength Assessment Within Functional Limits Comments Strength Comments 4/5 OT- Coordination Assessment Upper Extremity Finger to Nose Test Within Functional Limits Finger Tapping Test Within Functional Limits OT-Muscle Tone Assessment Muscle Tone WNL Yes OT Sensation Assessment Edema Edema Absent M9 OT- IP Assessment and Plan Start: 04/06/22 15:04 Freq: Status: Active Protocol: Document 04/06/22 15:05 CGR (Rec: 04/06/22 15:28 CGR [id number]) OT Summary Assessment and Plan Potential Rehabilitation Potential Good Analytic Complexity at Evaluation Moderate Summary OT Impairments Pain,Strength,Balance, Functional Cognition, Functional Mobility,Grooming, Dressing,Toileting,Bathing, Toilet Transfers,Shower Transfers,Activity Tolerance Progress Towards Goals Slow Progress due to Activity Tolerance Assessment Summary Pt presents as a moderate complexity evaluation s/p admit for fall, UTI, PNA. Pt is currently needing assist for bed mobility and CGA for all mobility. Pt has limited activity tolerance for simple ADLs at this time. Pt will benefit from occupational therapy services. Recommend pt go to SNF. Goals Self-Feeding Goal Independent Grooming Goal Independent Dressing Goal Independent Toileting Goal Independent Bathing Goal Independent Toilet Transfer Goal Independent Shower Transfer Goal Independent Days to Meet Goals 20 Frequency of Treatment Frequency Of Treatment Once a Day Treatment Plan OT Treatment Plan ADL Training,Functional Mobility,Patient/Family Education,Discharge Planning Other Treatment Recommendations and Next ADLS standing Treatment Focus Discharge Recommendations OT Discharge Recommendations SNF Rehab Transportation Needs at Discharge Private Vehicle
[2022-04-06 21:32] VITALS: O2SAT 95
[2022-04-06] MEDS: SENNOSIDES 8.6 MG TABLET 17.2 MG PO (21:43)
[2022-04-06] MEDS: SODIUM CHLORIDE 0.9% FLUSH 10 ML IV (21:43)
[2022-04-07] MEDS: ALENDRONATE 70 MG TABLET PO (06:44)
[2022-04-07] MEDS: PANTOPRAZOLE DR 20 MG TABLET PO (06:44)
[2022-04-07 07:04] VITALS: BP 146/84; PULSE 90; RESP 18; TEMP 35.6; O2SAT 97
[2022-04-07 07:40] VITALS: BP 130/80; PULSE 85; RESP 17; TEMP 36.5; O2SAT 97
--- NOTE | 2022-04-07 07:49 | P.DS_ITS ---
History of Present Illness History of Present Illness Date Patient Seen: 04/07/22 Time Patient Seen: 11:00 Chief complaint: GLF from bed Narrative: Niecy Rivera is a 76-year-old female who presented to the emergency department after she rolled out of bed this morning with a previous fall on 03/30/22 at home with a left rib fractures of 11th and 12th.? She was seen in the emergency department that day and her daughter sent her in today reporting that patient needs more help at home.? Patient states that she has been doing okay, does not report fevers, chills she states that she needs help from somebody who can cook for her.? She states that she has meals on wheels already, denies nausea, vomiting, chest pain, difficulty breathing.? She states that she has left-sided rib pain.? She rolled out of bed because she states her bed is at a slant and it happened quickly, she denies hitting her head or having any loss of consciousness.? She states that she wears oxygen at night and does not measure how much.? She denies any difficulty walking.? She denies loss of consciousness, she denies new weakness or new shortness of breath. Discharge Providers Provider Date of admission: 04/04/22 14:35 Discharge Date: 04/07/22 Primary care physician: DEBORAH Dumont Consults: 04/04/22 11:08 Consult to [facility] [place] - Senior Mechanical Design Engineer Stat Comment: 04/04/22 16:41 Consult to Dietitian, Adult Routine Comment: Reason For Exam: weight loss - poor diet 04/04/22 16:44 Consult to Dietitian, Adult Routine Comment: Reason For Exam: poor diet, weighs only 76 pounds. weakness/falls 04/04/22 17:10 Consult to Dietitian, Adult Routine Comment: Reason For Exam: consult already placed Consult to Respiratory Therapy Evaluate & Treat Comment: Physician Instructions: Evaluate and treat Consult to Senior Mechanical Design Engineer Routine Comment: 04/04/22 18:31 Consult to Physical Therapy Evaluate & Treat Comment: Mobilize Physician Instructions: Evaluate and Treat 04/05/22 21:33 Consult to Dietitian, Adult Routine Comment: Reason For Exam: poor appetite 04/06/22 09:08 Consult to Occupational Therapy Evaluate & Treat Comment: Physician Instructions: Evaluate and treat Discharge provider: Gunner Singh, DO Summary Hospital Course Discharge Diagnosis: 1. UTI ruled out. Stop levaquin with negative culture. 2. Displaced fractures of the left posterior 11th and 12th ribs.? Provide pain control as needed. 3. Dependent atelectasis in the left upper lobe and left lower lobe likely related to mucosal plugging in the left mainstem bronchus.? Risk for progression to pneumonia.? Continue incentive spirometry. 4. Severe constipation.? Sennosides at night.? Lactulose daily.? Improving and had BM on 04/05. 5. Multilevel central height loss of multiple vertebral bodies of indeterminate age.? Continue with pain control. 6. 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 No active treatment necessary. 7. Hypertension.? Reasonable control.? Maintain patient's regular medication of lisinopril 40 mg daily. 8. Osteoporosis.? Continue alendronate as well as calcium and vitamin D3.? V itamin daily. 9. Reviewed maintain patient's regular medication of lisinopril.? Follow clinically. 10. GERD.? Continue patient's regular medication of omeprazole daily. 11. History of COPD.? Treat with albuteral handheld and albuteral neb treatment as needed.? 12. Smoker.? Has smoked 1 pack per day since age 13.? Daily treatment with nicotine patch 21 mg.? Smoking cessation counseling given. Hospital Course: Admitted for fall at home and found to have broken left ribs 11-12. Also with weakness which PT eval deemed not safe to return and patient requiring SNF. Had constipation and given lactulose and had BM. Was discharged with lactulose daily to [facility] for ongoing rehab. Time Spent with Patient Time spent: Greater than 30 minutes Exam Vital Signs (past 8 hours): - 04/07/22 07:04 04/07/22 07:40 Temperature 96.1 F L 97.7 F Pulse Rate 90 85 Respiratory Rate 18 17 Blood Pressure 146/84 H 130/80 Pulse Oximetry 97 97 Oxygen Flow Rate 2 2 Fraction of Inspired Oxygen 25 SaO2/FiO2 Ratio 388 Oxygen Delivery Method Nasal Cannula Oxygen Flow Rate 2 Narrative Exam Narrative: General: cooperative, comfortable, in no acute medical distress HEENT: Eyes equal and reactive to light. Extraocular movements normal. Neck is supple. Trachea is midline, head is normocephalic. Cardiovascular:? Normal rate and regular rhythm, no peripheral edema, warm extremities Respiratory: normal effort, able to speak in complete sentences, without wheezing, stridor, diminished breath sounds on lower left, shallow respirations with some rhonchi present GI: abdomen slightly distended and tympanic, nontender to palpation, without masses, rebound tenderness or exquisite tenderness with exam.? Bowel sounds normal MSK: moves all extremities, neurovascularly intact, no weakness, normal tone pain with movement on the left side, tenderness to left ribs over fracture Skin: brisk capillary refill, without pallor or erythema Neuro: normal speech and cognition, A&O x3, ambulatory, clear speech Psych: mental status is grossly normal, congruent mood, normal affect Objective Labs Result Diagrams: 04/05/22 05:17 04/05/22 05:17 [facility] Medical History Abdominal pain Advance care planning Bilateral low back pain without sciatica (11/23/15) Chronic back pain (Unknown) Chronic constipation Cobalamin deficiency (01/11/16) Constipation (11/23/15) COPD (chronic obstructive pulmonary disease) Dizziness (11/05/16) FRAZIER (dyspnea on exertion) Excessive daytime sleepiness (01/11/16) Frailty syndrome in geriatric patient History of seizure (Unknown) History of stroke (11/23/15) Hx of gastric ulcer (08/2016) Hypercholesterolemia (Unknown) Hypertension (Unknown) 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) Osteopenia Osteoporosis Perforated viscus (09/03/16) Pure hypercholesterolemia (11/23/15) Sebaceous cyst Seborrheic keratosis (11/23/15) Seizure disorder (09/30/16) Tobacco abuse Urinary frequency Vitamin B12 deficiency (Unknown) Surgical History Anesthesia History of colonoscopy History of partial hysterectomy (~1985) Status post cholecystectomy Family History Mother Stroke Hypertension Alcoholism Seizure Father Alcoholism Sister Cancer Social History household members: none Smoking Status: Current every day smoker alcohol intake: current substance use type: does not use Discharge Plan Discharge Plan Patient Disposition: SNF Transfer to: [facility] I certify the postop hospital intermediate care is medically necessary on a continuing basis for any conditions for which he/ she received care during this hospitalization.: Yes The receiving facility has agreed to accept transfer and provide medical treatment.: Yes Discharge orders & Medications Prescriptions: New lactulose 20 gram/30 mL Solution 20 ml PO DAILY Qty: 1200 0RF Continued (DME) Aerochamber MV Spacer See Rx Instructions .ROUTE .MEDSUPPLY Qty: 1 0RF Rx Instructions: As directed calcium carbonate [Antacid Ext Str (calcium carb)] 300 mg (750 mg) tablet,chewable 600 mg PO BID Qty: 90 0RF Rx Instructions: Take 2 tabs with Vitamin D3 2000iu twice daily for bone health alendronate [Fosamax] 70 mg tablet 70 mg PO QWEEK Qty: 12 3RF Rx Instructions: takes on Fridays amlodipine 5 mg tablet 5 mg PO BID Qty: 180 3RF Rx Instructions: Take 1 tab twice per day for hypertension. lisinopril 20 mg tablet 40 mg PO DAILY Qty: 180 3RF Rx Instructions: Take 2 tabs by mouth each night at bedtime for hypertension omeprazole 20 mg capsule,delayed release(DR/EC) 20 mg PO DAILY Qty: 90 3RF Rx Instructions: Take 1 capsule/tab by mouth daily Disabled Parking Permit packet 1 ea Not Applicable DIRECTED hydrocodone-acetaminophen 5-325 mg tablet 1 tab PO Q6H PRN (Reason: pain) Qty: 14 0RF Follow up/Referrals: Dasia Peters ARNP [Primary Care Provider] - Discharge Data Primary Care Provider: Dasia Peters Attending Provider: Vicky Jasmine VTE Deep Vein Thrombosis/Pulmonary Embolism Present on Admission: No
[2022-04-07 09:45] VITALS: BP 146/84
[2022-04-07] MEDS: ENOXAPARIN 40 MG/0.4 ML SYRINGE SUBCUT (09:45)
[2022-04-07] MEDS: lisinopriL 20 MG TABLET 40 MG PO (09:45)
[2022-04-07] MEDS: LACTULOSE 20 GM/30 ML SOLUTION PO (09:45)
[2022-04-07] MEDS: NICOTINE 21 MG PATCH TOP (09:45)
[2022-04-07] MEDS: CHOLECALCIFEROL (VITAMIN D3) 1,000 UNIT TABLET 2000 UNIT PO (09:46)
[2022-04-07] MEDS: MULTIVITAMIN 1 TABLET 1 TAB PO (09:47)
[2022-04-07] MEDS: AMLODIPINE 5 MG TABLET PO (09:47)
[2022-04-07] MEDS: SODIUM CHLORIDE 0.9% FLUSH 10 ML IV (09:50)
[2022-04-07] MEDS: ACETAMINOPHEN 325 MG TABLET 650 MG PO (11:24)
[2022-04-07 14:28] LABS: COVID19 -Nasal RAPID Negative (Negative)
--- NOTE | 2022-04-07 14:45 | CM.DPNOTE ---
DC Note Call from [facility] Vielka Mays P# [phone] [place] [address] auth# [id number] TC to Thu at [facility] P# [phone]; she can accept patient for admission today but does not have transport available Spoke w/RN, patient and dtr Shana and all agree transport via dtr's pov is a safe, feasible option. Patient agreeable to plan : Discharge to [facility] SNF via dtr's pov COVID PCR updated, completed and signed DC ppk faxed to Sonia. RN to RN report by TRACE Mcmahan Updated Zac Vora CM re plan JW
== END 2022-04-07 15:00 ==
LOC: ED 12:57 → AC 14:56
PROVIDERS: Emergency Medicine; Student in an Organized Health Care Education/Training Program; Admitting Provider Neuromusculoskeletal Medicine, Sports Medicine; Emergency Provider Nurse Practitioner Critical Care Medicine; PCP Nurse Practitioner; Referring Provider Nurse Practitioner Critical Care Medicine; Visit Provider Neuromusculoskeletal Medicine, Sports Medicine
DX: S22.42XD Multiple fractures of ribs, left side, subsequent encounter for fracture with routine healing (principal); J98.11 Atelectasis; K59.00 Constipation, unspecified; R53.1 Weakness; I10 Essential (primary) hypertension; M81.0 Age-related osteoporosis without current pathological fracture; K21.9 Gastro-esophageal reflux disease without esophagitis; Z99.81 Dependence on supplemental oxygen; F17.210 Nicotine dependence, cigarettes, uncomplicated; Z91.81 History of falling; Z20.822 Contact with and (suspected) exposure to COVID-19
CPT/HCPCS: 36415; 51701; 71045; 71250; 74176; 80053; 81001; 83605; 83690; 84145; 85025; 86140; 87040; 87086; 87635; 93005; 93010; 94640; 94760; 96361; 96365; 96366; 96372; 96375; 96376; 97162; 97166; 97530; 97535; 99285; C9803; G0378; J1630; J1650; J1956; J2405; J7613

== ENCOUNTER → 2022-07-29 10:36 | Outpatient (CLI) | payer OTHER, SELFPAY ==
[2022-04-04 14:38] VITALS: BMI 14.1
[2022-07-29 11:55] LABS: Alanine Aminotransferase 10 IU/L (<35); Alkaline Phosphatase 67 U/L (38-126); Aspartate Aminotransferase 19 IU/L (14-36); Bilirubin Total 0.5 mg/dL (0.2-1.3); Blood Urea Nitrogen 12 mg/dL (7-17); Carbon Dioxide 30 mmol/L (22-32); Chloride 95 mmol/L (98-107); Cholesterol 232 mg/dL (140-199); Estimated Glomerular Filt Rate > 60 mL/min (>60); Glucose 98 mg/dL (80-110); HDL Cholesterol 60 mg/dL (40-60); HEMOLYSIS < 15 (0-50); LDL Cholesterol Calculated 140 mg/dL (<100); Potassium 3.9 mmol/L (3.4-5.1); Sodium 136 mmol/L (137-145); Total Protein 7.6 g/dL (6.3-8.2); Triglycerides 159 mg/dL (35-150)
[2022-07-29 12:11] LABS: Free T3, Triiodothyronine Free 3.13 pg/mL (2.77-5.27); Free T4, Direct Thyroxine 1.56 ng/dL (0.78-2.19)
[2022-07-29 13:08] LABS: Creatinine Urine Random 53.7 mg/dL
[2022-07-29 13:13] LABS: Microalbumi Creatinin Ratio Ur 48.4 ug/mg CR (<30); Microalbumin Urine Random 2.6 mg/dL (0-1.6)
[2022-08-02 15:48] LABS: Albumin 4.2 g/dL (3.5-5.0); Albumin Globulin Ratio 1.2 (1.0-2.8); Globulin 3.4 g/dL (1.7-4.1)
== END ==
PROVIDERS: PCP Nurse Practitioner; Referring Provider Nurse Practitioner; Visit Provider Nurse Practitioner
DX: E78.00 Pure hypercholesterolemia, unspecified (principal); I10 Essential (primary) hypertension; M81.0 Age-related osteoporosis without current pathological fracture; Z79.899 Other long term (current) drug therapy
CPT/HCPCS: 36415; 80053; 80061; 82043; 82570; 84439; 84443; 84481

== ENCOUNTER → 2022-10-23 10:37 | Outpatient (CLI) | payer OTHER, SELFPAY ==
[2022-04-04 14:38] VITALS: BMI 14.1
--- NOTE | 2022-10-23 10:58 | DI.DEXA.S_ITS ---
Bone Density Report Name: CASSIE REBOLLEDO Age: 76 Sex: Female Ethnicity: White Date of : 1945 Indication: postmenopausal osteoporosis; Referring Provider: MARIETTA JEFFERS Study: Bone densitometry was performed. Exam Date: October 23, 2022 Accession number: [id number] Bone Density: Region BMD T-score Z-score Classification AP Spine(L1, L3, L4) 0.597 -4.1 -1.6 Osteoporosis Femoral Neck (Left) 0.374 -4.3 -2.1 Osteoporosis Total Hip (Left) 0.474 -3.8 -2.0 Osteoporosis Femoral Neck (Right) 0.375 -4.3 -2.1 Osteoporosis Total Hip (Right) 0.477 -3.8 -1.9 Osteoporosis Total Hip Mean 0.476 -3.8 -2.0 Osteoporosis World Health Organization criteria for BMD impression classify patients as: Normal (T-score at or above -1.0), Osteopenia (T-score between -1.0 and -2.5), or Osteoporosis (T-score at or below -2.5). 10-year Fracture Risk: FRAX not reported because: Some T-score for Spine Total or Hip Total or Femoral Neck at or below -2.5 Previous Exams: -- Region Exam Age BMD T-score BMD Change BMD Change Date g/cm2 vs Baseline vs Previous -- AP Spine (L1,L3-L4) 10/23/2022 76 0.597 -4.1 0.070 (13.2%)# 0.070 (13.2%)# 06/03/2019 73 0.528 -4.8 Total Hip(Left) 10/23/2022 76 0.474 -3.8 0.031 (7.0%)# 0.031 (7.0%)# 06/03/2019 73 0.443 -4.1 Total Hip(Right) 10/23/2022 76 0.477 -3.8 0.039 (8.8%)# 0.039 (8.8%)# 06/03/2019 73 0.439 -4.1 -- *Denotes significance at 95% confidence level, LSC for AP Spine = 0.022 g/cm2, LSC for Total Hip = 0.027 g/cm2 # Denotes dissimilar scan types or analysis methods Impression: The patient has osteoporosis, based on the Left Femoral Neck T-score. No significant bone loss was observed. Discussion: HIGH RISK OF FRACTURE. BONE DENSITY IS UNDESIRABLY LOW AT ONE OR MORE SKELETAL SITES, CONSISTENT WITH OSTEOPOROSIS. ALSO, BONE DENSITY IS LOWER THAN EXPECTED FOR AGE AND SEX AT ONE OR MORE SKELETAL SITES; RECOMMEND A DILIGENT SEARCH FOR SECONDARY CAUSES OF BONE LOSS. This patient's lowest T-score meets the World Health Organization's (WHO) criteria for osteoporosis at one or more sites (T-score -2.5 or below). In untreated patients, the risk of osteoporotic fracture increases approximately two-fold for each 1.0 SD decrease in T-score. Low bone density is not the only risk factor for fracture; also consider factors such as patient's age, frailty or poor health, risk of falling, risk of injury, previous osteoporotic fracture, family history of osteoporosis, cigarette smoking, low body weight, etc. Not everyone with low bone mineral density has osteoporosis; osteomalacia and other metabolic bone disorders should also be considered. Patients who have osteoporosis should be evaluated for specific diseases and conditions (secondary causes) that may cause or contribute to bone loss. The [place] [employer] (AACE) and National Osteoporosis Foundation (NOF) recommend pharmacologic intervention for all postmenopausal women whose T-score is in this range. Also, this patient's bone mineral density is below the range considered normal for healthy age-, sex-, and race-matched controls at least one site (Z-score -2.0 or below). This warrants careful evaluation for diseases and conditions that may contribute to accelerated bone loss. The patient should follow a healthful lifestyle (good nutrition with adequate calcium and vitamin D, and appropriate weight-bearing exercise). Follow-Up: Consider a repeat BMD and Vertebral Fracture Assessment (VFA) exam in 2 years or sooner if medically necessary, to reassess this patient's status. Reported by: ARACELI GRANDE M.D on 10/23/2022 11:12:00 AM.
[2022-10-23 13:57] LABS: Add Manual Diff / Slide Review NO; Basophils Absolute Auto 100 /uL (0-100); Basophils Percent Auto 0.6 % (0-2); Eosinophils Absolute Auto 100 /uL (0-450); Eosinophils Percent Auto 1.2 % (2-4); Hematocrit 44.3 % (36-46); Hemoglobin 14.9 g/dL (12.0-16.0); Lymphocytes Absolute Auto 1600 /uL (1100-4500); Lymphocytes Percent Auto 20.3 % (25-40); Mean Corpuscular HGB Conc 33.6 % (30-36); Mean Corpuscular Hemoglobin 29.2 PG (26-34); Mean Corpuscular Volume 87.1 fL (80-100); Monocytes Absolute Auto 600 /uL (0-900); Monocytes Percent Auto 7.9 % (3-14); Neutrophils Absolute Auto 5700 /uL (1500-7000); Platelet Count 284 X10^3/uL (150-400); Red Blood Cell Count 5.08 X10^6/uL (4.0-5.2); Red Cell Distribution Width 15.1 % (11.6-14.8); White Blood Cell Count 8.1 X10^3/uL (4.5-11.0)
[2022-10-23 14:17] LABS: Alanine Aminotransferase 11 IU/L (<35); Albumin 4.1 g/dL (3.5-5.0); Albumin Globulin Ratio 1.5 (1.0-2.8); Alkaline Phosphatase 50 U/L (38-126); Aspartate Aminotransferase 18 IU/L (14-36); Bilirubin Total 0.6 mg/dL (0.2-1.3); Blood Urea Nitrogen 16 mg/dL (7-17); Carbon Dioxide 30 mmol/L (22-32); Chloride 100 mmol/L (98-107); Cholesterol 163 mg/dL (140-199); Estimated Glomerular Filt Rate > 60 mL/min (>60); Globulin 2.8 g/dL (1.7-4.1); Glucose 97 mg/dL (80-110); HDL Cholesterol 71 mg/dL (40-60); HEMOLYSIS < 15 (0-50); LDL Cholesterol Calculated 68 mg/dL (<100); Potassium 4.2 mmol/L (3.4-5.1); Sodium 138 mmol/L (137-145); Total Protein 6.9 g/dL (6.3-8.2); Triglycerides 120 mg/dL (35-150)
== END ==
PROVIDERS: PCP Nurse Practitioner; Referring Provider Nurse Practitioner; Visit Provider Nurse Practitioner
DX: M81.0 Age-related osteoporosis without current pathological fracture (principal); E78.00 Pure hypercholesterolemia, unspecified; I10 Essential (primary) hypertension; R53.83 Other fatigue; Z79.899 Other long term (current) drug therapy
CPT/HCPCS: 36415; 77080; 80053; 80061; 85025

== ENCOUNTER → 2022-10-25 15:10 | Outpatient (CLI) | payer OTHER, SELFPAY ==
[2022-04-04 14:38] VITALS: BMI 14.1
[2022-10-25 15:21] LABS: Appearance Urine UA CLOUDY; Bilirubin Urine UA 2+ (NEGATIVE); Color Urine UA BROWN; Glucose Urine UA NEGATIVE (Negative); Ketones Urine UA TRACE (NEGATIVE); Leukocyte Esterase Urine UA 1+ (NEGATIVE); Nitrite Urine UA POSITIVE (Negative); Occult Blood Urine UA NEGATIVE (Negative); Protein Urine UA 2+ (Negative); Specific Gravity Urine UA <=1.005 (1.000-1.035)
[2022-10-25 15:23] LABS: pH Urine UA >= 9.0 (4.5-8.0)
[2022-10-25 15:33] LABS: Amorphous Sediment Urine 3+; Bacteria Urine Moderate (10-30); Hyaline Casts Urine 0-1/LPF; Ictotest Urine Positive (Negative); RBC Urine 0-1/HPF (0-5/HPF); Triple Phosphate Crystal Urine Few; WBC Urine 10-30/HPF (0-5/HPF)
[2022-10-25 15:35] LABS: Squamous Epithelial Cell Urine 10-30 /HPF (0-5/HPF); Transitional Epi Cells Urine 1-5/HPF (0-5/HPF)
== END ==
PROVIDERS: PCP Nurse Practitioner; Referring Provider Nurse Practitioner; Visit Provider Nurse Practitioner
DX: R30.0 Dysuria (principal)
CPT/HCPCS: 81001

== ENCOUNTER → 2022-10-30 13:25 | Outpatient (CLI) | payer OTHER, SELFPAY ==
[2022-04-04 14:38] VITALS: BMI 14.1
[2022-10-30 16:13] LABS: Creatinine Urine Random 43.7 mg/dL
[2022-10-30 16:18] LABS: Microalbumi Creatinin Ratio Ur 139.5 ug/mg CR (<30); Microalbumin Urine Random 6.1 mg/dL (0-1.6)
== END ==
PROVIDERS: PCP Nurse Practitioner; Referring Provider Nurse Practitioner; Visit Provider Nurse Practitioner
DX: R53.83 Other fatigue (principal); E78.00 Pure hypercholesterolemia, unspecified; I10 Essential (primary) hypertension
CPT/HCPCS: 82043; 82570

== ENCOUNTER → 2022-11-20 13:29 | Outpatient (CLI) | payer OTHER, SELFPAY ==
[2022-04-04 14:38] VITALS: BMI 14.1
[2022-11-20 13:46] LABS: Appearance Urine UA CLOUDY; Bilirubin Urine UA 2+ (NEGATIVE); Color Urine UA BROWN; Glucose Urine UA NEGATIVE (Negative); Ketones Urine UA NEGATIVE (NEGATIVE); Leukocyte Esterase Urine UA 1+ (NEGATIVE); Nitrite Urine UA POSITIVE (Negative); Occult Blood Urine UA 2+ (Negative); Protein Urine UA TRACE (Negative)
[2022-11-20 14:08] LABS: pH Urine UA 7.5 (4.5-8.0)
[2022-11-20 14:11] LABS: Ictotest Urine Negative (Negative)
[2022-11-20 14:31] LABS: Amorphous Sediment Urine 2+; Bacteria Urine Many (>30); Culture Indicated Urine Specimen Cultured; RBC Urine 1-5/HPF (0-5/HPF); Squamous Epithelial Cell Urine 1-5 /HPF (0-5/HPF); Transitional Epi Cells Urine 0-1/HPF (0-5/HPF); WBC Urine 1-5/HPF (0-5/HPF)
== END ==
PROVIDERS: PCP Nurse Practitioner; Referring Provider Nurse Practitioner; Visit Provider Nurse Practitioner
DX: N39.0 Urinary tract infection, site not specified (principal)
CPT/HCPCS: 81003; 81015; 87086

== ENCOUNTER → 2022-11-29 13:46 | Outpatient (CLI) | payer OTHER, SELFPAY ==
[2022-04-04 14:38] VITALS: BMI 14.1
[2022-11-29 14:00] LABS: Appearance Urine UA CLEAR; Bilirubin Urine UA NEGATIVE (NEGATIVE); Color Urine UA YELLOW; Glucose Urine UA NEGATIVE (Negative); Ketones Urine UA NEGATIVE (NEGATIVE); Leukocyte Esterase Urine UA NEGATIVE (NEGATIVE); Nitrite Urine UA NEGATIVE (Negative); Occult Blood Urine UA NEGATIVE (Negative); Protein Urine UA NEGATIVE (Negative); Urobilinogen Urine UA 0.2 E.U./dL (0.2)
[2022-11-29 14:12] LABS: pH Urine UA 7.5 (4.5-8.0)
[2022-11-29 14:13] LABS: Bacteria Urine Occasional (0-1); Culture Indicated Urine Cult Not Indicated; RBC Urine 0-1/HPF (0-5/HPF); Squamous Epithelial Cell Urine 1-5 /HPF (0-5/HPF); WBC Urine None Seen (0-5/HPF)
== END ==
PROVIDERS: PCP Nurse Practitioner; Referring Provider Nurse Practitioner; Visit Provider Nurse Practitioner
DX: R30.0 Dysuria (principal)
CPT/HCPCS: 81001

== ENCOUNTER 2023-01-25 17:03 | Observation (INO) | payer OTHER, MEDICAID, SELFPAY ==
[2022-04-04 14:38] VITALS: BMI 14.1
[2023-01-25] VITALS (19 sets, daily range): BP systolic 171–237; BP diastolic 105–143; PULSE 78–94; RESP 18–20; TEMP 36.3; O2SAT 91–99
--- NOTE | 2023-01-25 17:16 | DI.RAD.S_ITS ---
PROCEDURE: XR ELBOW LT MIN 3V INDICATIONS: fall/trauma. TECHNIQUE: 3 views of the elbow were acquired. COMPARISON: None. FINDINGS: Bones: Diffuse osteopenia. No definite fractures or dislocations. No suspicious bony lesions. Soft tissues: There is an elbow joint effusion. No suspicious soft tissue calcifications. IMPRESSION: Diffuse osteopenia. Anterior elbow joint effusion. No definite fracture seen. However, occult fracture not excluded. Recommend immobilization and repeat imaging in 10-14 days. Dictated by: Dequan Pineda M.D. on 01/25/2023 at 17:25 Approved by: Dequan Pineda M.D. on 01/25/2023 at 17:30
--- NOTE | 2023-01-25 17:16 | DI.RAD.S_ITS ---
PROCEDURE: XR WRIST LT MIN 3V INDICATIONS: fall/trauma. TECHNIQUE: 3 views of the wrist were acquired. COMPARISON: None. FINDINGS: Bones: There is a mildly comminuted, likely intra articular fracture of the distal left radius with impaction of the distal fracture fragment. There is also a mildly displaced distal left ulnar fracture. Soft tissues: No suspicious soft tissue calcifications. IMPRESSION: Mildly comminuted, impacted distal left radial fracture with likely intra-articular extension. Mildly displaced distal left ulnar fracture. Dictated by: Dequan Pineda M.D. on 01/25/2023 at 18:00 Approved by: Dequan Pineda M.D. on 01/25/2023 at 18:02
--- NOTE | 2023-01-25 17:16 | DI.RAD.S_ITS ---
PROCEDURE: XR SHOULDER LT MIN 2V INDICATIONS: fall/trauma. TECHNIQUE: 3 views of the shoulder were acquired. COMPARISON: None. FINDINGS: Bones: Diffuse osteopenia. No fractures or dislocations. No suspicious bony lesions. Visualized ribs appear intact. Degenerative changes of the left shoulder. Soft tissues: No suspicious soft tissue calcifications. IMPRESSION: Left shoulder without acute fracture or dislocation. Degenerative changes of the left shoulder. If there is persistent clinical concern for occult fracture given adequate mechanism of injury, consider repeat imaging in 10-14 days. Dictated by: Dequan Pineda M.D. on 01/25/2023 at 17:31 Approved by: Dequan Pineda M.D. on 01/25/2023 at 17:32
[2023-01-25] MEDS: ONDANSETRON 4 MG/2 ML INJ IV (17:29)
[2023-01-25] MEDS: MORPHINE 2 MG/ML INJ IV (17:29)
--- NOTE | 2023-01-25 17:46 | PC.NURSE ---
Provider notified of patient increased blood pressure. Patient is unable to verify her current medications that she takes. No new orders at this time.
--- NOTE | 2023-01-25 20:00 | ED.GENADULT ---
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 history of chronic COPD she smokes heavily, she does not normally use inhalers does not have O2 at home available, she states she takes medication for blood pressure, possibly cholesterol she knows she takes 2 tabs in the morning and 1 in the evening. Patient does not know the name of her medications. Her pharmacy is [facility] which is closed today. She does smoke regularly, occasional alcohol, no illicit. She is allergic to hydromorphone. Patient notes she may have a brother who might be available to take care of her in [place] this morning. She was noted to be hypoxic this morning it maybe secondary to her COPD but with recent fall lab work was obtained she was quite hypertensive last night is improved but still elevated today. Patient's workup shows a sodium 131 BNP is 10 80, return requiring 1-2 L was not initially during her stay this maybe somewhat her baseline. Patient reportedly has some O2 at home but never uses it. No other significant changes to patient's workup. Patient's chest x-ray does not show any rib fracture does have a trace pleural effusion. Patient's family she has a daughter in [place] who would be happy to take her but she lives on a sailboat which would not work in patient's current state. She has a brother in [place] and a son that lives in [place] but they are both out of the state for another week but would also be willing to take her once they have returned. Patient has been in rehab facility in the past for short periods including [place]. Spoke with hospitalist Dr. Jasmine, who accepts for observation. Will add PT consult and contact Dr. Grove for consult while in hospital. Patient is requiring 1-2L but likely baseline. Updated Dr. Grove who will consult for the patient, there is possibility for repair tomorrow on Friday. She will see the patient before decisions made. Discharge Plan Departure Patient Disposition: Admitted as Observation Clinical Impression: Gait instability Fracture of wrist Qualifiers: Encounter type: initial encounter Fracture type: closed Laterality: left Qualified Code(s): S62.102A - Fracture of unspecified carpal bone, left wrist, initial encounter for closed fracture Elbow fracture, left Qualifiers: Encounter type: initial encounter Fracture type: closed Qualified Code(s): S42.402A - Unspecified fracture of lower end of left humerus, initial encounter for closed fracture Fall Qualifiers: Encounter type: initial encounter Qualified Code(s): W19.XXXA - Unspecified fall, initial encounter Admit Date/Time: 01/26/23 10:32 Admit Provider: Vicky Jasmine
[2023-01-25] MEDS: OXYCODONE/ACETAMINOPHEN 5/325 TABLET 1 TAB PO (20:16)
--- NOTE | 2023-01-25 23:21 | DI.RAD.S_ITS ---
PROCEDURE: XR WRIST LT 2V INDICATIONS: post reduction TECHNIQUE: 2 views of the wrist were acquired. COMPARISON: [facility], CR, XR WRIST LT MIN 3V, 01/25/2023, 17:22. FINDINGS: Bones: No previously unidentified fractures or dislocations. No suspicious bony lesions. There has been improve malalignment but persistent dorsal angulation at the distal radius impacted fracture previously identified. Scaphoid view: Not obtained Soft tissues: No suspicious soft tissue calcifications. IMPRESSION: Improvement in fracture malalignment but persistent significant dorsal angulation at the distal radial impacted fracture planes. Dictated by: Joe Louise M.D. on 01/25/2023 at 23:58 Approved by: Joe Louise M.D. on 01/25/2023 at 23:59
[2023-01-26] VITALS (32 sets, daily range): BP systolic 131–188; BP diastolic 76–114; PULSE 71–104; RESP 12–26; TEMP 36.4; O2SAT 90–97; BMI 19.2
--- NOTE | 2023-01-26 07:58 | DI.RAD.S_ITS ---
PROCEDURE: XR CHEST 1V INDICATIONS: fall TECHNIQUE: One view of the chest was acquired. COMPARISON: [facility], CR, XR CHEST 1V, 04/04/2022, 11:22. FINDINGS: Surgical changes and devices: None. Lungs and pleura: Blunting of left costophrenic angle is seen suggestive of trace left pleural effusion. Chronic emphysematous changes are noted. No definite focal infiltrate. No pneumothorax. Mediastinum: Tortuous thoracic aorta with aortic arch calcifications. Heart size is enlarged. Bones and chest wall: No suspicious bony lesions. Overlying soft tissues appear unremarkable. IMPRESSION: Trace left pleural effusion. No focal infiltrate, pleural effusion or gross pneumothorax. Dictated by: Fredrick Mckeon M.D. on 01/26/2023 at 8:22 Approved by: Fredrick Mckeon M.D. on 01/26/2023 at 8:22
[2023-01-26] MEDS: methylPREDNISolone 125 MG/2 ML VIAL IV (08:10)
[2023-01-26] MEDS: AMLODIPINE 5 MG TABLET PO ×2 (08:29→21:42)
[2023-01-26] MEDS: lisinopriL 20 MG TABLET 40 MG PO (08:30)
[2023-01-26] MEDS: NICOTINE 21 MG PATCH TOP (08:30)
[2023-01-26 08:34] LABS: Add Manual Diff / Slide Review NO; Basophils Absolute Auto 0 /uL (0-100); Basophils Percent Auto 0.5 % (0-2); Eosinophils Absolute Auto 100 /uL (0-450); Eosinophils Percent Auto 1.7 % (2-4); Hemoglobin 14.6 g/dL (12.0-16.0); Lymphocytes Absolute Auto 1700 /uL (1100-4500); Lymphocytes Percent Auto 19.5 % (25-40); Mean Corpuscular Hemoglobin 29.4 PG (26-34); Mean Corpuscular Volume 86.4 fL (80-100); Monocytes Absolute Auto 1100 /uL (0-900); Neutrophils Absolute Auto 5900 /uL (1500-7000); Neutrophils Percent Auto 66.3 % (50-75); Platelet Count 273 X10^3/uL (150-400); Red Blood Cell Count 4.98 X10^6/uL (4.0-5.2); Red Cell Distribution Width 13.7 % (11.6-14.8); White Blood Cell Count 8.9 X10^3/uL (4.5-11.0)
[2023-01-26 08:42] LABS: INR 0.9 (0.9-1.3); Prothrombin Time 10.7 SECONDS (10.1-12.7)
[2023-01-26 08:45] LABS: Alanine Aminotransferase 12 IU/L (<35); Albumin 3.8 g/dL (3.5-5.0); Albumin Globulin Ratio 1.3 (1.0-2.8); Alkaline Phosphatase 61 U/L (38-126); Aspartate Aminotransferase 17 IU/L (14-36); BUN Creatinine Ratio 21.8 (6-22); Blood Urea Nitrogen 17 mg/dL (7-17); Calcium 8.5 mg/dL (8.4-10.2); Carbon Dioxide 28 mmol/L (22-32); Chloride 97 mmol/L (98-107); Creatine Kinase 35 U/L (30-135); Estimated Glomerular Filt Rate > 60 mL/min (>60); Glucose 107 mg/dL (80-110); HEMOLYSIS < 15 (0-50); Lipase 38 U/L (23-300); PTT Partial Thromboplastin Tim 30 SECONDS (26-36); Potassium 4.6 mmol/L (3.4-5.1); Sodium 131 mmol/L (137-145); Total Protein 6.8 g/dL (6.3-8.2)
[2023-01-26 08:57] LABS: NT-proBNP (BNP-Adult 18+) 1080 pg/mL (<450); Troponin I < 0.012 ng/mL (0.01-0.034)
--- NOTE | 2023-01-26 09:02 | PC.NURSE ---
This C T TECH delivered breakfast tray to pt and setup tray at bedside. Provided a hand towel and washcloth to cover pts chest. At pt request this C T TECH cut up the food into smaller bites and provided a straw for the orange juice.
--- NOTE | 2023-01-26 09:48 | PC.NURSE ---
With patient permission this RN contacted her daughter in regards to potential discharge possibilities. Patient would prefer if she has to discharge to go up to her brother home if he was willing to do so. Daughter agreed that it was a potential and would be talking to them to see if that was a possibility and would return phone call.
[2023-01-26] MEDS: FUROSEMIDE 40 MG/4 ML VIAL IV (10:01)
--- NOTE | 2023-01-26 10:25 | PC.NURSE ---
RESOLUTION SPECIALIST NOTE: bed bath, incontinent care, and анна care provided; brief changed and linens changed
--- NOTE | 2023-01-26 10:26 | PC.NURSE ---
Placed harpreet and educated pt on process.
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
[2023-01-26] MEDS: CALCIUM CARBONATE 500 MG TAB PO (21:41)
[2023-01-26] MEDS: SENNOSIDES 8.6 MG TABLET 17.2 MG PO (21:42)
[2023-01-26] MEDS: ATORVASTATIN 20 MG TABLET 10 MG PO (21:42)
[2023-01-27] VITALS (26 sets, daily range): BP systolic 130–183; BP diastolic 80–116; PULSE 69–101; RESP 12–94; TEMP 35.3–37.2; O2SAT 90–98; BMI 19.2
[2023-01-27] MEDS: SODIUM CHLORIDE 0.9% 1,000 ML 75 ML IV ×2 (00:43→17:43)
[2023-01-27] MEDS: PANTOPRAZOLE DR 20 MG TABLET PO (05:04)
[2023-01-27 06:04] LABS: BUN Creatinine Ratio 29.4 (6-22); Blood Urea Nitrogen 25 mg/dL (7-17); Carbon Dioxide 27 mmol/L (22-32); Chloride 100 mmol/L (98-107); Estimated Glomerular Filt Rate > 60 mL/min (>60); Glucose 98 mg/dL (80-110); HEMOLYSIS < 15 (0-50); Potassium 3.6 mmol/L (3.4-5.1); Sodium 132 mmol/L (137-145)
[2023-01-27 06:11] LABS: Add Manual Diff / Slide Review NO; Basophils Absolute Auto 0 /uL (0-100); Basophils Percent Auto 0.2 % (0-2); Eosinophils Absolute Auto 0 /uL (0-450); Eosinophils Percent Auto 0.2 % (2-4); Hematocrit 41.3 % (36-46); Hemoglobin 14.3 g/dL (12.0-16.0); Lymphocytes Absolute Auto 1600 /uL (1100-4500); Lymphocytes Percent Auto 15.3 % (25-40); Mean Corpuscular HGB Conc 34.5 % (30-36); Mean Corpuscular Hemoglobin 29.7 PG (26-34); Mean Corpuscular Volume 86.1 fL (80-100); Monocytes Absolute Auto 1100 /uL (0-900); Monocytes Percent Auto 10.3 % (3-14); Neutrophils Absolute Auto 7600 /uL (1500-7000); Platelet Count 240 X10^3/uL (150-400); Red Cell Distribution Width 13.9 % (11.6-14.8); White Blood Cell Count 10.3 X10^3/uL (4.5-11.0)
[2023-01-27 06:12] LABS: NT-proBNP (BNP-Adult 18+) 750 pg/mL (<450)
--- NOTE | 2023-01-27 07:46 | P.PN_ITS ---
Subjective Subjective Interval history: Patient feels good and is eager to have surgery. No new complaints. Exam Vital Signs (past 8 hours): - 01/27/23 00:00 01/27/23 00:22 01/27/23 05:08 Temperature 97.8 F 97.2 F L Pulse Rate 90 82 Respiratory Rate 17 16 Blood Pressure 130/90 158/92 H Pulse Oximetry 92 92 Oxygen Delivery Method Nasal Cannula Oxygen Flow Rate 1 1 Fraction of Inspired Oxygen 24 SaO2/FiO2 Ratio 379 Oxygen Delivery Method Nasal Cannula Oxygen Flow Rate 1 Narrative Exam Narrative: General:? Frail appearing, in no acute medical distress. HEENT:? Moist mucous membranes, normal sclera with reactive pupils, Respiratory:? Lungs are clear to auscultation Cardiac:? Regular rate and rhythm no murmurs no bruits Abdomen:? Soft, nontender, good bowel tones, no flank pain Skin:? Warm and dry, no rashes Neurologic:? Grossly neurologically intact Extremities:? Left wrist splint and Mello wrap.? She is neurovascularly intact.? Psych:? Cooperative, appropriate insight and affect Objective Labs 01/27/23 05:10 01/27/23 05:10 Labs: Laboratory Results - last 24 hr 01/26/23 01/26/23 01/26/23 08:20 08:20 08:20 WBC 8.9 RBC 4.98 Hgb 14.6 Hct 43.0 MCV 86.4 MCH 29.4 MCHC 34.0 RDW 13.7 Plt Count 273 Neut % (Auto) 66.3 Lymph % (Auto) 19.5 L [place] % (Auto) 12.0 Eos % (Auto) 1.7 L Baso % (Auto) 0.5 Neut # (Auto) 5900 Lymph # (Auto) 1700 [place] # (Auto) 1100 H Eos # (Auto) 100 Baso # (Auto) 0 PT 10.7 INR 0.9 APTT 30 Sodium 131 L Potassium 4.6 Chloride 97 L Carbon Dioxide 28 BUN 17 Creatinine 0.78 Estimated GFR > 60 BUN/Creatinine Ratio 21.8 Glucose 107 Calcium 8.5 Total Bilirubin 1.0 AST 17 ALT 12 Alkaline Phosphatase 61 Total Creatine Kinase 35 Troponin I < 0.012 NT-Pro-B Natriuret Pep 1080 H Total Protein 6.8 Albumin 3.8 Globulin 3.0 Albumin/Globulin Ratio 1.3 Lipase 38 01/27/23 01/27/23 05:10 05:10 WBC 10.3 RBC 4.80 Hgb 14.3 Hct 41.3 MCV 86.1 MCH 29.7 MCHC 34.5 RDW 13.9 Plt Count 240 Neut % (Auto) 74.0 Lymph % (Auto) 15.3 L [place] % (Auto) 10.3 Eos % (Auto) 0.2 L Baso % (Auto) 0.2 Neut # (Auto) 7600 H Lymph # (Auto) 1600 [place] # (Auto) 1100 H Eos # (Auto) 0 Baso # (Auto) 0 PT INR APTT Sodium 132 L Potassium 3.6 Chloride 100 Carbon Dioxide 27 BUN 25 H Creatinine 0.85 Estimated GFR > 60 BUN/Creatinine Ratio 29.4 H Glucose 98 Calcium 8.0 L Total Bilirubin AST ALT Alkaline Phosphatase Total Creatine Kinase Troponin I NT-Pro-B Natriuret Pep 750 H Total Protein Albumin Globulin Albumin/Globulin Ratio Lipase PFSH Medical History Abdominal pain Advance care planning Bilateral low back pain without sciatica (11/23/15) Chronic back pain (Unknown) Chronic constipation Cobalamin deficiency (01/11/16) Constipation (11/23/15) Dizziness (11/05/16) FRAZIER (dyspnea on exertion) Excessive daytime sleepiness (01/11/16) Frailty syndrome in geriatric patient History of seizure (Unknown) History of stroke (11/23/15) History of stroke Hx of gastric ulcer (08/2016) Hypercholesterolemia (Unknown) Hypertension (Unknown) 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) Osteopenia Osteoporosis Perforated viscus (09/03/16) Pure hypercholesterolemia (11/23/15) Sebaceous cyst Seborrheic keratosis (11/23/15) Seizure disorder (09/30/16) Tobacco abuse Urinary frequency Vitamin B12 deficiency (Unknown) Surgical History Anesthesia History of colonoscopy History of partial hysterectomy (~1985) Status post cholecystectomy Family History Mother Stroke Hypertension Alcoholism Seizure Father Alcoholism Sister Cancer Social History household members: none Smoking Status: Current every day smoker alcohol intake: never substance use type: does not use Assessment & Plan Assessment & Plan narrative: 1. Fracture left distal radius/ulna.? Orthopedic consult completed.? Expected surgery today for open reduction internal fixation. 2. Concern for occult fracture left elbow.? Orthopedic consultation completed and felt no occult fracture in left elbow.. 3. Impaired mobility.? Unable to adequately mobilize with fractures left upper extremity and use of a walker.? PT to assess and treat. 4. Known constipation problems.? Sennosides at night.? Lactulose daily. 5.. Hypertension.? Maintain patient's regular medication. 8. Osteoporosis.? Continue alendronate as well as calcium and vitamin D3.? Vitamin daily. 9. GERD.? Continue patient's regular medication of omeprazole daily. 10. History of COPD.? Treat with albuteral handheld as needed.? 11. Smoker.? Has smoked 1 pack per day since age 13.? Daily treatment with nicotine patch 21 mg.? Smoking cessation counseling given.??Patient to willing to continue on patch on discharge.? She should be on 21 mg for 6 weeks, then 14 mg for 2 weeks and finishing with 7 mg for 2 weeks.? This can be prescribed at discharge but I explained to the patient that she can buy these [id number] and the prescription will just be for understanding dosing. 12. Hyperlipidemia.? Maintain treatment with Crestor. 13. Hyponatremia.? Continue to monitor.. Slightly improving. 14. Elevated BNP.? Furosemide given intravenously in the ER.? Monitor level. Improved today, continue to monitor. Code:? Do not resuscitate, do not intubate. Substitute decision maker:? Shana Harrison DVT prophylaxis:? Enoxaparin 40 mg subcu every 24 hours Quality VTE Deep Vein Thrombosis/Pulmonary Embolism Present on Admission: No
[2023-01-27] MEDS: NICOTINE 21 MG PATCH TOP (08:18)
[2023-01-27] MEDS: CALCIUM CARBONATE 500 MG TAB PO ×2 (08:19→21:47)
[2023-01-27] MEDS: AMLODIPINE 5 MG TABLET PO ×2 (08:19→21:47)
[2023-01-27] MEDS: lisinopriL 20 MG TABLET 40 MG PO (08:19)
[2023-01-27] MEDS: HYDRALAZINE 10 MG TABLET PO (10:46)
--- NOTE | 2023-01-27 12:47 | CM.DANOTE ---
Addendum entered by RADHA Summers 01/27/23 15:54: ADD: [facility] confirms they can accept pt pending Frank auth approval. They can accept two admissions tomorrow and two admissions Fri. BF Addendum entered by Zahira NettlesRADHA 01/27/23 13:10: ADD: SW made initial SNF referrals to [facility] and [facility] as pt has [facility] and does not want [facility] or [facility]. [facility] will review and await PT/OT notes in the AM and SW faxed referral to [facility]. PASRR done in anticipation of SNF. BF Original Note: Patient is a 77 yo female who was admitted on 01/26/23 for GLF, Fx ulna and radius. Pt has [facility] and [facility] for insurance and her PCP is Dasia Peters. EMR was reviewed. Per MD, pt hx of osteoperosis, COPD, home oxygen at night, uses a walker and canes at baseline. Per Ortho Consult, plan is surgery today for distal radius fx, ulna fx, and possible elbow fx. STEVEN met bedside with pt and explained role and she confirms she still lives alone in [facility] and is mostly independent with ADL's at baseline but uses a 4WW and canes for ambulation. Pt's Dtr/DPOA Shana also lives in [place] on a boat but has MS at baseline and therefore limited with her ability to provide pt with physical assist. Pt will likely have challenges with mobilizing as she needs assistive device for ambulation but now has arm fxs. Pt confirms she has a hx of [facility] a few years ago and refuses to go back there and then pt went to [facility] in Mar 2022 last year and states it started off great but then was horrible and I had to pay out of pocket before going home. Pt adamantly wants to try to d/c home but her son lives in [place] and her brother who lives in [place] is currently in [place] on a trip all week. Pt aware that if she doesn't have a safe home plan and cannot ambulate, then likely may need SNF. Pt to have surgery today, time not yet known, and then to work with PT/OT to determine SNF vs Home with assist and HH. Pt has [facility] which would need an auth for SNF if pt not safe for home. Plan: SW to follow closely for surgery this afternoon and then PT/OT to determine SNF vs HH. RADHA Summers Discharge Planning/Care Management CM Discharge Assessment Start: 01/27/23 12:43 Freq: Status: Active Protocol: Document 01/27/23 12:44 BF (Rec: 01/27/23 12:47 BF [id number]) Discharge Planning Assessment Assigned Electronic Specialist RADHA Rodriges DPOA/Assigned Designee Name Dtr Shana Contact Information [phone] Advance Directives? No: states full code Advance Directives on File No History Provided By Patient,Medical Record Has Patient been admitted in last 30 No days? Prior Living Arrangements Apartment/Condo Household Members none Comment Dtr lives nearby in a boat in [place] and has MS so limited in her physical assist ability. Type of transporation used prior to Drives own vehicle admit Independent with ADL's Yes Is patient alert and oriented? Yes Needs Assistance With Home Chores / Shopping Caregiver for Another No DME Already Rented / Owned FWW / Walker,Cane Comment Patient endorses she has 2 canes and 1 walker Patient/Family Preference [facility] Facility Comment SNF vs Home as pt really wants to d/c home but barriers to using a walker and so far no family available to stay with her at d/c Barriers to Discharge Yes Comment [facility], would need auth for SNF, pt really wants home Discharge Plan [facility] Transportation Arrangement facility van vs Dtr pending progress and needs Additional Comment SNF rehab vs Home with HH. Whiteboard Updated in Patient Room with Yes name and ext. # of Electronic Specialist Review Status In Process Please Provide Date Initial DC 01/27/23 Assessment Was Performed Next Review Type Continued Stay Review
--- NOTE | 2023-01-27 14:16 | PM.PREOP ---
Pre-operative Note Interval Note History & Physical reviewed/Exam performed by Physician: Yes Changes to H&P: No
[2023-01-27] MEDS: CEFAZOLIN 2 GM/100 ML PREMIX 100 ML IV ×2 (14:45→17:43)
--- NOTE | 2023-01-27 15:13 | PT-OP ANOTE ---
Pt to get surgery later today for UE fractures. D/t pt needing surgery per Ortho, await further orders after surgery to treat patient.
--- NOTE | 2023-01-27 15:13 | SUR.OPER ---
Supine on padded OR bed, head on pillow, arms secured on padded arm boards at <90 degrees abduction, legs uncrossed, safety belt at thigh, tape over blanket over lower legs.
[2023-01-27] MEDS: EPINEPHrine 1 MG/ML 0.15 MG IM (15:28)
[2023-01-27] MEDS: BUPIVACAINE 0.5% (PF) 10 ML VIAL INJ (15:28)
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
--- NOTE | 2023-01-27 17:17 | SUR.PHASEI ---
Report called. Transported to room 206. denies pain, n/v. taking ice chips.
--- NOTE | 2023-01-27 18:01 | PC.NURSE ---
Day shift: Pt returned to the floor from OR at 1715. Pt somnolent. Wakens to voice but promptly falls back asleep. Not answering any questions as she falls asleep before she is able to answer them. Placed nasal canula in pt's mouth as she is mouth breathing and not receiving any oxygen when NC goes through her nose. O2 is 92 percent on 0.5L. L arm is wrapped in kassandra and splinted. [facility] intact. Called her daughter Shana and gave her an update. Will continue to monitor.
[2023-01-27] MEDS: ATORVASTATIN 20 MG TABLET 10 MG PO (21:46)
[2023-01-27] MEDS: SENNOSIDES 8.6 MG TABLET 17.2 MG PO (21:46)
[2023-01-27] MEDS: DOCUSATE 100 MG CAPSULE PO (21:46)
[2023-01-27] MEDS: ONDANSETRON 4 MG/2 ML INJ IV (22:13)
[2023-01-28] VITALS (7 sets, daily range): BP systolic 124–151; BP diastolic 82–94; PULSE 78–115; RESP 16–17; TEMP 36.4–37; O2SAT 93–95
[2023-01-28] MEDS: CEFAZOLIN 2 GM/100 ML PREMIX 100 ML IV (01:21)
[2023-01-28] MEDS: PANTOPRAZOLE DR 20 MG TABLET PO (05:46)
[2023-01-28 07:20] LABS: Add Manual Diff / Slide Review NO; Basophils Absolute Auto 0 /uL (0-100); Basophils Percent Auto 0.4 % (0-2); Eosinophils Absolute Auto 100 /uL (0-450); Eosinophils Percent Auto 0.6 % (2-4); Hematocrit 42.8 % (36-46); Hemoglobin 14.6 g/dL (12.0-16.0); Lymphocytes Absolute Auto 1200 /uL (1100-4500); Lymphocytes Percent Auto 9.9 % (25-40); Mean Corpuscular Hemoglobin 29.6 PG (26-34); Mean Corpuscular Volume 86.9 fL (80-100); Monocytes Absolute Auto 1200 /uL (0-900); Monocytes Percent Auto 10.4 % (3-14); Neutrophils Absolute Auto 9300 /uL (1500-7000); Neutrophils Percent Auto 78.7 % (50-75); Platelet Count 233 X10^3/uL (150-400); Red Blood Cell Count 4.93 X10^6/uL (4.0-5.2); Red Cell Distribution Width 13.6 % (11.6-14.8); White Blood Cell Count 11.8 X10^3/uL (4.5-11.0)
[2023-01-28] MEDS: POTASSIUM CHLORIDE 20 MEQ TAB PO (07:30)
[2023-01-28] MEDS: NICOTINE 21 MG PATCH TOP (09:24)
[2023-01-28] MEDS: lisinopriL 20 MG TABLET 40 MG PO (09:25)
[2023-01-28] MEDS: ENOXAPARIN 40 MG/0.4 ML SYRINGE SUBCUT (09:25)
[2023-01-28] MEDS: DOCUSATE 100 MG CAPSULE PO ×2 (09:25→21:23)
[2023-01-28] MEDS: AMLODIPINE 5 MG TABLET PO ×2 (09:25→21:24)
[2023-01-28] MEDS: CALCIUM CARBONATE 500 MG TAB PO ×2 (09:25→21:24)
[2023-01-28] MEDS: CHOLECALCIFEROL (VITAMIN D3) 1,000 UNIT TABLET 1000 UNIT PO (09:25)
[2023-01-28] MEDS: LACTULOSE 20 GM/30 ML SOLUTION 13.332 GM PO (09:26)
[2023-01-28] MEDS: FUROSEMIDE 40 MG TABLET PO (09:26)
--- NOTE | 2023-01-28 10:25 | PT.IIE ---
Current Diagnoses Effusion, unspecified elbow (01/26/23) Age-related osteoporosis without current pathological fracture (01/26/23) Fracture of unspecified carpal bone, left wrist, initial encounter for closed fracture (01/26/23) Surgery Performed Operation Date: 01/27/23 10:00 Actual Procedures p ORIF distal radius, examination of left elbow under anesthesia(Left) - Julia Grove MD Surgical History (Last Reviewed 01/26/23 @ 15:17 by Julia Grove MD) Anesthesia History of colonoscopy History of partial hysterectomy (~1985) Status post cholecystectomy Medical History (Last Reviewed 01/26/23 @ 15:17 by Julia Grove MD) Abdominal pain Advance care planning Bilateral low back pain without sciatica (11/23/15) Chronic back pain (Unknown) Chronic constipation Cobalamin deficiency (01/11/16) Constipation (11/23/15) Dizziness (11/05/16) FRAZIER (dyspnea on exertion) Excessive daytime sleepiness (01/11/16) Frailty syndrome in geriatric patient History of seizure (Unknown) History of stroke (11/23/15) History of stroke Hx of gastric ulcer (08/2016) Hypercholesterolemia (Unknown) Hypertension (Unknown) 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) Osteopenia Osteoporosis Perforated viscus (09/03/16) Pure hypercholesterolemia (11/23/15) Sebaceous cyst Seborrheic keratosis (11/23/15) Seizure disorder (09/30/16) Tobacco abuse Urinary frequency Vitamin B12 deficiency (Unknown) Physical Therapy Inpatient Evaluation/Re-Eval M1 PT/OT-IP Prior Functional Status Start: 01/28/23 11:34 Freq: NEEDED Status: Active Protocol: Document 01/28/23 10:25 AB (Rec: 01/28/23 11:51 AB [id number]) Medical Review Prior Functional Status Medical History Reviewed Yes Communication able to make needs known Mobility and Gait pt stated that she is modified independent with all mobilities and ambulation using a 4WW indoors/outdoors but furniture/wall cruises when she goes to upstairs bedroom due to having only one walker and cannot bring walker upstairs Social History Household Members none Living Arrangements Apartment/Condo Number of Floors (Floors) Two Floors Number of Stairs To Enter/Railing? 4 steps R rail ascending to enter 18 steps L rail ascending to 2nd level bedroom Home Environment Standard Height Toilet,Tub/ Shower Home Equipment Four Wheel Walker,Raised Toilet Seat Without Armrests, Shower Seat with Backrest,Hand Held Shower,Grab Bars In Shower Additional Social History Comment pt stated that she has a R side bed rail M2 PT-IP Current Condition Start: 01/28/23 11:34 Freq: NEEDED Status: Active Protocol: Document 01/28/23 10:25 AB (Rec: 01/28/23 11:51 AB [id number]) Physical Therapy Current Condition Current Condition Evaluation Date 01/28/23 Treatment Diagnosis GLF; L wrist fx s/p ORIF; difficulty in walking Onset Date 01/27/23 M3 PT-IP Subjective Start: 01/28/23 11:34 Freq: NEEDED Status: Active Protocol: Document 01/28/23 10:25 AB (Rec: 01/28/23 11:51 AB [id number]) Subjective Physical Therapy Visit Type Type Initial Evaluation Visit Start Time 10:25 Visit Stop Time 11:04 Total Visit Minutes 39 Number of WALLP[employer] INSPECTOR AND [employer]IPPER Visits 0 Physical Therapy Visit Comments Patient Comments agreeable to do PT Therapy Pain Assessment Pain When Pain Assessed During Mobility Pain Present Pain Present Pain Reported Location Left Wrist Scale Used pain scale not stated Pain Behaviors Calling Out,Facial Grimacing, Guarding,Holding Area,Wincing Pain Management Techniques Distraction,Modification of Treatment,Re-positioning, Timing of Activity with Medications M4 PT-IP Mobility and Gait Start: 01/28/23 11:34 Freq: NEEDED Status: Active Protocol: Document 01/28/23 10:25 AB (Rec: 01/28/23 11:51 AB [id number]) PT-Bed Mobility Assessment Supine to Sit Supine to Sit Maximum Assistance Scooting Scooting to Edge of Bed Maximum Assistance PT-Transfer Assessment Sit to and From Stand Sit to and from Stand Maximum Assistance,1 Person Assistance,2 Person Assistance ,Use of Upper Extremities Equipment Transfer Assistive Device Gait Belt,Platform Walker Orthotic/Prosthetic Devices or Brace: Yes Transfers Transfer Destination Chair Transfer Technique Stand Step Pivot Transfer Ability Level of Assist Moderate Assistance,Maximum Assistance,2 Person Assistance ,Use of Upper Extremities Comments Mobility Comments pt educated on NWB on L wrist and use of PFW. per hospitalist, sling is for comfort only. L arm with soft cast on. BP: 143/82 O2 sat: 90-91% at RA. pt completed supine to sit x 3 attempts max A x 1-2 and max cues. presents with increas posterior trunk lean. required max A for scooting and positioning to EOB. completed sit to stand max A x 1-2 and max cues. c/o dizziness and needing to sit back down. BP checked: 112/ 78 O2 sat decreased to 87%. cued for deep breathing. BP checked after ~ 1-2 minutes rest. BP: 124/84 O2 sat: 90- 91%. completed sit to stand max A x 1-2 and step transfer to chair mod A x 2 to max A x 2 using PFW. required assist for steadiness due to increase posterior retrolean and also needing assist for weight shifting to be able to take steps. positioned pt on the chair. call light and table placed within reach. Gait Assessment Comments Gait Comments unable at this time PT-Balance Assessment Sitting Balance and Reactions Static Sitting Balance Ability Fair Dynamic Sitting Balance Ability Poor Standing Balance and Reactions Static Standing Balance Ability Poor Dynamic Standing Balance Ability Poor Device Used PFW M5 PT-IP Objective Assessments Start: 01/28/23 11:34 Freq: NEEDED Status: Active Protocol: Document 01/28/23 10:25 AB (Rec: 01/28/23 11:51 AB [id number]) Orientation Orientation/Cognition Level of Alertness Alert Orientation Name Language Function Ability Hard of Hearing Safety Awareness Decreased Safety Awareness Memory Description Short Term Impaired Gross Range of Motion Lower Extremity ROM Assessment Within Functional Limits Strength Lower Extremity Strength Assessment Within Functional Limits Coordination Assessment Gross Coordination Gross Coordination WNL Sensation Assessment Sensation Gross Sensation WNL Muscle Tone Muscle Tone WNL Yes M6 PT-IP Treatment Start: 01/28/23 11:34 Freq: NEEDED Status: Active Protocol: Document 01/28/23 10:25 AB (Rec: 01/28/23 11:51 AB [id number]) Physical Therapy Treatment Education Education Provided Weight Bearing Status,Safety M7 PT-IP Assessment and Plan Start: 01/28/23 11:34 Freq: NEEDED Status: Active Protocol: Document 01/28/23 10:25 AB (Rec: 01/28/23 11:51 AB [id number]) PT Summary Assessment and Plan Potential Rehabilitation Potential Fair Status of Condition at Evaluation Evolving Summary Impairments Pain,ROM,Strength,Balance, Coordination,Sensation,Tone, Cognition,Bed Mobility, Transfers,Gait,Activity Tolerance Assessment Summary pt s/p fall and sustained a L wrist fx and underwent ORIF POD 1 and also has L elbow effsuon. pt is NWB on L wrist and has soft cast on. Per ortho MD sling is for comfort. sling not used during PT for pt to be able to use PFW. Pt requiring max A x 1-2 for bed mobility and mod A x 2 to max A x 2 for transfers using PFW . pt presents with increase retrolean and unable to ambulate at this time and will require SNF rehab to improve strength and mobility independence. Goals Bed Mobility Goal Minimal Assistance Transfer Goal Minimal Assistance,Front Wheeled Walker Gait Goal Minimal Assistance,Front Wheel Walker Gait Distance 50 Other Goals improve bed mobility, transfers , ambulation using PFW 150 ft SBA up/down 4 steps R rail SBA up/down 18 steps L rail SBA Days to Meet Goals 10 Frequency of Treatment Frequency Of Treatment Twice a Day Treatment Plan Physical Therapy Treatment Plan Bed Mobility Training,Transfer Training,Gait Training, Therapeutic Exercise,Balance Retraining,Post Op Education, Discharge Planning,Hot or Cold Pack,Neuromuscular Re-ed, Coordination Retraining,Manual Therapy Precautions Other Precautions per orth MD: May platform walker weightbear through the splint. Full range of motion of the elbow as tolerated, sling for comfort. Otherwise 5 lb lifting limitation with the left upper extremity for 6 weeks then lifting as tolerated. Weight Bearing Status Weight Bearing Status Non-Weight Bearing Allowed Weight Bearing Amount (enter % L wrist NWB; May platform or #) (%) walker weightbear through the splint Recommendations To Nursing Amount of Assist Needed 2 Person Assist Discharge Recommendations PT Discharge Recommendations SNF Rehab Transportation Needs at Discharge Wheelchair/Cabulance
--- NOTE | 2023-01-28 10:38 | OT.IP.EVAL ---
Current Diagnoses Effusion, unspecified elbow (01/26/23) Age-related osteoporosis without current pathological fracture (01/26/23) Fracture of unspecified carpal bone, left wrist, initial encounter for closed fracture (01/26/23) Surgery Performed Operation Date: 01/27/23 10:00 Actual Procedures p ORIF distal radius, examination of left elbow under anesthesia(Left) - Julia Grove MD Past Medical History (Last Reviewed 01/26/23 @ 15:17 by Julia Grove MD) Abdominal pain Advance care planning Bilateral low back pain without sciatica (11/23/15) Chronic back pain (Unknown) Chronic constipation Cobalamin deficiency (01/11/16) Constipation (11/23/15) Dizziness (11/05/16) FRAZIER (dyspnea on exertion) Excessive daytime sleepiness (01/11/16) Frailty syndrome in geriatric patient History of seizure (Unknown) History of stroke (11/23/15) History of stroke Hx of gastric ulcer (08/2016) Hypercholesterolemia (Unknown) Hypertension (Unknown) 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) Osteopenia Osteoporosis Perforated viscus (09/03/16) Pure hypercholesterolemia (11/23/15) Sebaceous cyst Seborrheic keratosis (11/23/15) Seizure disorder (09/30/16) Tobacco abuse Urinary frequency Vitamin B12 deficiency (Unknown) Surgical History (Last Reviewed 01/26/23 @ 15:17 by Julia Grove MD) Anesthesia History of colonoscopy History of partial hysterectomy (~1985) Status post cholecystectomy Occupational Therapy Inpatient Evaluation/Re-Eval M2 OT-IP Current Condition Start: 01/28/23 11:30 Freq: Status: Active Protocol: Document 01/28/23 10:38 [facility] (Rec: 01/28/23 11:42 [facility] [id number]) Occupational Therapy Current Condition Current Condition Evaluation Date 01/28/23 Treatment Diagnosis S/p Left ORIF distal radius fx Diagnosis Onset Date 01/26/23 Weight Bearing Status Allowed Weight Bearing Amount (enter % early weight bearing via or #) (%) platform walker through splint for LUE per Dr. Grove M3 OT- IP Subjective and Pain Start: 01/28/23 11:30 Freq: Status: Active Protocol: Document 01/28/23 10:38 [facility] (Rec: 01/28/23 11:42 [facility] [id number]) OT- Subjective Occupational Therapy Visit Type Type Initial Evaluation Visit Start Time 10:38 Visit Stop Time 11:09 Total Visit Minutes 31 Occupational Therapy Visit Comments Patient Comments Pt agreed to get up. Patient/Caregiver Goals To get better. OT Pain Assessment Pain When Pain Assessed At Rest Pain Present Pain Present Pain Reported Location Left arm Intensity 6 Scale Used Numeric (0 - 10) M4 OT- IP ADL's Start: 01/28/23 11:30 Freq: Status: Active Protocol: Document 01/28/23 10:38 [facility] (Rec: 01/28/23 11:42 [facility] [id number]) OT EYL-Nfqk-Aazwgoz General Evaluation Areas Needing Assistance Opening Containers Comments OT Self-Feeding Comments Pt needing set-up assist. OT ADL-Grooming General Evaluation Grooming Ability Maximum Assistance Comments OT Grooming Comments Assist for brushing her hair, set-up for wash cloth so pt able to wash her face. OT ADL-Oral Care General Eval Oral Care Ability Maximum Assistance Areas of Assistance Managing Dentures Comments Oral Care Comments Assist to rinse out her dentures. OT ADL-Dressing General Eval Lower Body Dressing Ability Total Assistance Areas Needing Assistance Socks Comments OT Dressing Comments Total assist at this time for LB dressing needs. OT ADL-Toileting Comments OT Toileting Comments Purewick in place. Pt states at home uses of disposable brief as incontinent at times. OT ADL-Bathing Comments OT Bathing Comments Not performed. M5 OT- IP IADL's Start: 01/28/23 11:30 Freq: Status: Active Protocol: Document 01/28/23 10:38 [facility] (Rec: 01/28/23 11:42 [facility] [id number]) OT-Instrumental Activities of Daily Living Deficits IADL Deficits Identified Deficits Home Safety Awareness Awareness of Need for Assistance at Home Good Awareness Home Safety Comments Pt aware at this time no able to care for herself and realize best to go to skilled rehab. Medication Management Medication Management Comments Pt states able to do on her own. Money Management Money Management Comments Pt did her own finances prior. M6 OT- IP Functional Cognition Start: 01/28/23 11:30 Freq: Status: Active Protocol: Document 01/28/23 10:38 [facility] (Rec: 01/28/23 11:42 [facility] [id number]) Cognitive Factors Limiting Selfcare Function Cognitive Ability Level of Alertness Alert Patient Orientation Name,Place,Situation Attention Span Ability Capable of Focused Attention, Capable of Sustained Attention Ability to Follow Commands Able to Follow One Step Commands Cognitive Comments Cognitive Assessment Comments Pt able to follow commands for ADL and mobility needs. OT- Vision and Hearing OT- Hearing Assessment OT- Hearing Assessment WFL OT- Vision Assessment Visual Acuity WFL Visual Attentiveness WFL Occular Pursuits WFL M7 OT- IP Mobility and Balance Start: 01/28/23 11:30 Freq: Status: Active Protocol: Document 01/28/23 10:38 [facility] (Rec: 01/28/23 11:42 [facility] [id number]) OT- Bed Mobility Assessment Rolling Type of Rolling Roll to Right Level of Assistance Maximum Assistance,1 Person Assistance OT-Transfer Assessment Sit to and From Stand Sit to and from Stand Moderate Assistance,2 Person Assistance Transfers Transfer Ability Moderate Assistance,Maximum Assistance,2 Person Assistance Technique Transfer Destination Bed,Chair Comments Mobility Comments MAX AX 1 to get to the edge of the bed and reminders not to push on her left hand. MODA X2 to stand to FWW with left platform , assist for LUE placement and to help guide the FWW and for her balance. BP supine 146/91, sitting 124/87, and after transfer 119/76. Pt's o2 on RA from 88-92%. OT- Balance Assessment Sitting Balance and Reactions Static Sitting Balance Ability Fair Dynamic Sitting Balance Ability Poor Standing Balance and Reactions Static Standing Balance Ability Poor Dynamic Standing Balance Ability Poor Comments Other Balance Tests/Deviations/Treatment Pt initially needing assist : for sitting balance as leaning posteriorly. M8 OT- IP Objective Assessments Start: 01/28/23 11:30 Freq: Status: Active Protocol: Document 01/28/23 10:38 [facility] (Rec: 01/28/23 11:42 [facility] [id number]) OT Gross Range of Motion Upper Extremity Range of Motion Assessment Left Impaired OT Strength Upper Extremity Strength Assessment Left Impaired Comments Strength Comments RUE WFL M9 OT- IP Assessment and Plan Start: 01/28/23 11:30 Freq: Status: Active Protocol: Document 01/28/23 10:38 [facility] (Rec: 01/28/23 11:42 [facility] [id number]) OT Summary Assessment and Plan Potential Rehabilitation Potential Good Analytic Complexity at Evaluation Moderate Summary OT Impairments Pain,Strength,Balance, Functional Mobility,Self- Feeding,Grooming,Dressing, Toileting,Bathing,Toilet Transfers,Shower Transfers, Activity Tolerance Progress Towards Goals Slow Progress due to Pain,Slow Progress due to Activity Tolerance Assessment Summary Pt MOD complexity and main barriers are steps, pain, decreased balance and now needing extensive two person assist for ADL and mobility needs. Pt will greatly benefit from skilled rehab as prior pt was independent with all mobility and ADl needs with use of FWW. Pt is motivated and willing to get better. Goals Self-Feeding Goal Independent Grooming Goal Independent Dressing Goal Independent Toileting Goal Independent Bathing Goal Standby Assistance Shower Transfer Goal Independent Days to Meet Goals 20 Frequency of Treatment Frequency Of Treatment Once a Day Treatment Plan OT Treatment Plan ADL Training,Functional Mobility,Patient/Family Education,Discharge Planning Discharge Recommendations OT Discharge Recommendations SNF Rehab Transportation Needs at Discharge Wheelchair/Cabulance
[2023-01-28 10:45] LABS: BUN Creatinine Ratio 25.9 (6-22); Blood Urea Nitrogen 15 mg/dL (7-17); Calcium 8.1 mg/dL (8.4-10.2); Carbon Dioxide 26 mmol/L (22-32); Chloride 97 mmol/L (98-107); Estimated Glomerular Filt Rate > 60 mL/min (>60); Glucose 98 mg/dL (80-110); HEMOLYSIS < 15 (0-50); Potassium 3.8 mmol/L (3.4-5.1); Sodium 132 mmol/L (137-145)
[2023-01-28 10:54] LABS: NT-proBNP (BNP-Adult 18+) 431 pg/mL (<450)
--- NOTE | 2023-01-28 11:38 | CM.DPC ---
Addendum entered by Brooklyn Hein R.N. 01/28/23 13:15: Anita at [facility] called back with auth number. Number is: [id number]. Called Jossy at [facility] to see if she can accept today, left message. Confirmed with Asuncion at [facility] that she can accept patient tomorrow with pharmacy picking technician at 11:00. Gave her the auth number as well. Updated patient in her room, she is open to skilled, just does not want to go to [facility] or [facility]. Addendum entered by Brooklyn Hein R.N. 01/28/23 12:50: Spoke to Anita Hernández, [facility] hospice case manager, stated, will review for auth, did receive the therapy note. Addendum entered by Brooklyn Hein R.N. 01/28/23 11:57: O.T. and P.T. notes are in, called Anita Betty over at [facility] and updated her that patient will need residential, faxed notes to both fax numbers. Original Note: DCP Cont: Working on getting patient to either [facility] or [facility]. Spoke to Jossy, she is somewhat reluctant, due to discharge plan, will she have someone to stay with her after they discharge. If authed, may potentially be able to accept today. Spoke to Asuncion at [facility], can take her tomorrow morning. Have not yet received therapy notes as of yet, in order to send to [facility]. As soon as O.T, and P.T. notes are in, will send over to [facility]. P: DCP to continue to follow. Plan is to work on getting patient to a residential facility, if [facility] will auth her. If auth is received today, will attempt [facility], or other facilities if needed. Other option is [facility] tomorrow. Brooklyn Hein RN/Roll Finisher
[2023-01-28] MEDS: ACETAMINOPHEN 325 MG TABLET 650 MG PO (11:42)
--- NOTE | 2023-01-28 16:49 | P.PN_ITS ---
Subjective Subjective Date Patient Seen: 01/28/23 Time Patient Seen: 16:49 Interval history: Left wrist pain is mild. Denies elbow pain. No numbness and tingling. Otherwise without complaints. Exam Vital Signs (past 8 hours): - 01/28/23 09:25 01/28/23 09:54 01/28/23 14:00 Temperature 98.4 F 98.2 F Pulse Rate 78 101 H 115 H Respiratory Rate 17 17 Blood Pressure 150/90 H 151/94 H 124/87 Pulse Oximetry 93 94 Oxygen Flow Rate 0 0 Fraction of Inspired Oxygen 28 SaO2/FiO2 Ratio 332 Oxygen Delivery Method Nasal Cannula Oxygen Flow Rate 0 Narrative Exam Narrative: Pleasant 77-year-old female resting comfortably in bed visiting with her friends. Motor functions intact distal left upper extremity. Sensation grossly intact to light touch. Hand is warm and dry. The splint is on and in good repair. Const General: cooperative and comfortable Resp Effort & Inspection: normal respiratory effort and able to speak in complete sentences Objective Labs 01/28/23 07:03 01/28/23 07:03 Labs: Laboratory Results - last 24 hr 01/28/23 01/28/23 01/28/23 05:10 07:03 07:03 WBC Cancelled 11.8 H RBC Cancelled 4.93 Hgb Cancelled 14.6 Hct Cancelled 42.8 MCV Cancelled 86.9 MCH Cancelled 29.6 MCHC Cancelled 34.0 RDW Cancelled 13.6 Plt Count Cancelled 233 Neut % (Auto) Cancelled 78.7 H Lymph % (Auto) Cancelled 9.9 L [place] % (Auto) Cancelled 10.4 Eos % (Auto) Cancelled 0.6 L Baso % (Auto) Cancelled 0.4 Neut # (Auto) Cancelled 9300 H Lymph # (Auto) Cancelled 1200 [place] # (Auto) Cancelled 1200 H Eos # (Auto) Cancelled 100 Baso # (Auto) Cancelled 0 Sodium 132 L Potassium 3.8 Chloride 97 L Carbon Dioxide 26 BUN 15 Creatinine 0.58 Estimated GFR > 60 BUN/Creatinine Ratio 25.9 H Glucose 98 Calcium 8.1 L NT-Pro-B Natriuret Pep 431 PFSH Medical History Abdominal pain Advance care planning Bilateral low back pain without sciatica (11/23/15) Chronic back pain (Unknown) Chronic constipation Cobalamin deficiency (01/11/16) Constipation (11/23/15) Dizziness (11/05/16) FRAZIER (dyspnea on exertion) Excessive daytime sleepiness (01/11/16) Frailty syndrome in geriatric patient History of seizure (Unknown) History of stroke (11/23/15) History of stroke Hx of gastric ulcer (08/2016) Hypercholesterolemia (Unknown) Hypertension (Unknown) 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) Osteopenia Osteoporosis Perforated viscus (09/03/16) Pure hypercholesterolemia (11/23/15) Sebaceous cyst Seborrheic keratosis (11/23/15) Seizure disorder (09/30/16) Tobacco abuse Urinary frequency Vitamin B12 deficiency (Unknown) Surgical History Anesthesia History of colonoscopy History of partial hysterectomy (~1985) Status post cholecystectomy Family History Mother Stroke Hypertension Alcoholism Seizure Father Alcoholism Sister Cancer Social History household members: none Smoking Status: Current every day smoker alcohol intake: never substance use type: does not use Assessment & Plan Post-op Postoperative Procedures: Procedures Operation Date: 01/27/23 10:00 Actual Procedure Side Surgeon cameron DIAZ distal radius, examination of left elbow under anesthesia Left Julia Grove MD Postoperative day: 1 Postoperative status: doing well Postoperative plan: routine post-op care Postoperative plan narrative: May platform walker weightbear through the splint. Full range of motion of the elbow as tolerated, sling for comfort. Otherwise 5 lb lifting limitation with the left upper extremity for 6 weeks then lifting as tolerated. [facility] removal of splint sutures and placement of removable wrist brace. Patient will work with physical therapy. May still require nursing home placement due to care needs and will need to get a platform walker Quality VTE Deep Vein Thrombosis/Pulmonary Embolism Present on Admission: No
--- NOTE | 2023-01-28 17:00 | PT.IPTN ---
Current Diagnoses Effusion, unspecified elbow (01/26/23) Age-related osteoporosis without current pathological fracture (01/26/23) Fracture of unspecified carpal bone, left wrist, initial encounter for closed fracture (01/26/23) Surgery Performed Operation Date: 01/27/23 10:00 Actual Procedures p ORIF distal radius, examination of left elbow under anesthesia(Left) - Julia Grove MD Physical Therapy Treatment Note M2 PT-IP Current Condition Start: 01/28/23 11:34 Freq: NEEDED Status: Active Protocol: Document 01/28/23 10:25 AB (Rec: 01/28/23 11:51 AB [id number]) Physical Therapy Current Condition Current Condition Evaluation Date 01/28/23 Treatment Diagnosis GLF; L wrist fx s/p ORIF; difficulty in walking Onset Date 01/27/23 M3 PT-IP Subjective Start: 01/28/23 11:34 Freq: NEEDED Status: Active Protocol: Document 01/28/23 17:18 TS (Rec: 01/28/23 17:31 TS [id number]) Subjective Physical Therapy Visit Type Type Treatment Note Visit Start Time 17:00 Visit Stop Time 17:17 Total Visit Minutes 17 Number of [employer] Visits 1 Physical Therapy Visit Comments Patient Comments agreeable to do PT Therapy Pain Assessment Pain When Pain Assessed During Mobility Pain Present Pain Present Pain Reported M4 PT-IP Mobility and Gait Start: 01/28/23 11:34 Freq: NEEDED Status: Active Protocol: Document 01/28/23 17:18 TS (Rec: 01/28/23 17:31 TS [id number]) PT-Bed Mobility Assessment Supine to Sit Supine to Sit Maximum Assistance Scooting Scooting to Edge of Bed Maximum Assistance PT-Transfer Assessment Sit to and From Stand Sit to and from Stand Maximum Assistance,1 Person Assistance,Use of Upper Extremities Equipment Transfer Assistive Device Gait Belt,Platform Walker Orthotic/Prosthetic Devices or Brace: Yes Comments Mobility Comments Supine to sit MaxA with handheld assist for uprighting trunk. She required MaxA for scooting to EOB with transfer pad, supported self in sitting with RUE. Sit to stand MaxA for retrolean and balance, required cues for LUE on platform walker and grasping of nitroglycerin neutralizer. She ambulated 80' initially Omid for propelling walker forward, progressed to CGA with no assist for platform walker management, pt unsteady with slow step thru gait. Pt was left in chair with call light and food tray nearby, nursing checking vitals. Gait Assessment Gait Gait Assistance Required: Contact Guard Assist,Minimum Assistance Distance (Feet) 80 Assistive Devices Assistive Device Platform Walker Orthotic/Prosthetic Devices or Brace: Yes Gait Deviations General Gait Pattern Decreased Stride Length, Decreased Feet Clearance, Narrow Based Gait Factors Limiting Gait Function Factors Limiting Gait Function Decreased Strength,Difficulty Following Directions, Incoordination,Pain,Poor Balance,Poor Safety Awareness Comments Gait Comments See mobility comments. PT-Balance Assessment Sitting Balance and Reactions Static Sitting Balance Ability Fair Dynamic Sitting Balance Ability Fair Standing Balance and Reactions Static Standing Balance Ability Fair Dynamic Standing Balance Ability Fair Device Used PFW M5 PT-IP Objective Assessments Start: 01/28/23 11:34 Freq: NEEDED Status: Active Protocol: Document 01/28/23 10:25 AB (Rec: 01/28/23 11:51 AB [id number]) Orientation Orientation/Cognition Level of Alertness Alert Orientation Name Language Function Ability Hard of Hearing Safety Awareness Decreased Safety Awareness Memory Description Short Term Impaired Gross Range of Motion Lower Extremity ROM Assessment Within Functional Limits Strength Lower Extremity Strength Assessment Within Functional Limits Coordination Assessment Gross Coordination Gross Coordination WNL Sensation Assessment Sensation Gross Sensation WNL Muscle Tone Muscle Tone WNL Yes M6 PT-IP Treatment Start: 01/28/23 11:34 Freq: NEEDED Status: Active Protocol: Document 01/28/23 17:18 TS (Rec: 01/28/23 17:31 TS [id number]) Physical Therapy Treatment Education Education Provided Weight Bearing Status,Safety M7 PT-IP Assessment and Plan Start: 01/28/23 11:34 Freq: NEEDED Status: Active Protocol: Document 01/28/23 17:18 TS (Rec: 01/28/23 17:31 TS [id number]) PT Summary Assessment and Plan Potential Rehabilitation Potential Fair Summary Impairments Pain,ROM,Strength,Balance, Coordination,Sensation,Tone, Cognition,Bed Mobility, Transfers,Gait,Activity Tolerance Progress Towards Goals Progressing Toward Goals Assessment Summary Pt progressing well with her mobility. She progressed her gait to ~80' Omid for propelling FWW forward, progressed to CGA with no assist for FWW. She continues to require MaxA for bed mobility due to NWB on L hand. She has poor balance coming into standing with platform walker with use of only RUE. PT is recommending SNF to progress bed mobility, transfers and gait. Goals Bed Mobility Goal Minimal Assistance Transfer Goal Minimal Assistance,Front Wheeled Walker Gait Goal Minimal Assistance,Front Wheel Walker Gait Distance 50 Other Goals improve bed mobility, transfers , ambulation using PFW 150 ft SBA up/down 4 steps R rail SBA up/down 18 steps L rail SBA Days to Meet Goals 10 Frequency of Treatment Frequency Of Treatment Twice a Day Treatment Plan Physical Therapy Treatment Plan Bed Mobility Training,Transfer Training,Gait Training, Therapeutic Exercise,Balance Retraining,Post Op Education, Discharge Planning,Hot or Cold Pack,Neuromuscular Re-ed, Coordination Retraining,Manual Therapy Precautions Other Precautions per orth MD: Sveta platform walker weightbear through the splint. Full range of motion of the elbow as tolerated, sling for comfort. Otherwise 5 lb lifting limitation with the left upper extremity for 6 weeks then lifting as tolerated. Weight Bearing Status Weight Bearing Status Non-Weight Bearing Allowed Weight Bearing Amount (enter % early weigth bearing via or #) (%) platform walker through splint for LUE Recommendations To Nursing Amount of Assist Needed 1 Person Assist Discharge Recommendations PT Discharge Recommendations SNF Rehab Transportation Needs at Discharge Wheelchair/Cabulance
--- NOTE | 2023-01-28 17:24 | PM.PN.1 ---
Subjective Subjective Interval history: Patient says her left arm feels much better today. She is willing to go to SNF as long as it is not [facility] or [facility]. Exam Vital Signs (past 8 hours): - 01/28/23 09:25 01/28/23 09:54 01/28/23 14:00 Temperature 98.4 F 98.2 F Pulse Rate 78 101 H 115 H Respiratory Rate 17 17 Blood Pressure 150/90 H 151/94 H 124/87 Pulse Oximetry 93 94 Oxygen Flow Rate 0 0 Fraction of Inspired Oxygen 28 SaO2/FiO2 Ratio 332 Oxygen Delivery Method Nasal Cannula Oxygen Flow Rate 0 Narrative Exam Narrative: General:? Frail appearing, in no acute medical distress. HEENT:? Moist mucous membranes, normal sclera with reactive pupils, Respiratory:? Lungs are clear to auscultation Cardiac:? Regular rate and rhythm no murmurs no bruits Abdomen:? Soft, nontender, good bowel tones, no flank pain Skin:? Warm and dry, no rashes Neurologic:? Grossly neurologically intact Extremities:? Left wrist splint and Mello wrap.? She is neurovascularly intact.? Psych:? Cooperative, appropriate insight and affect Objective Labs 01/28/23 07:03 01/28/23 07:03 Labs: Laboratory Results - last 24 hr 01/28/23 01/28/23 01/28/23 05:10 07:03 07:03 WBC Cancelled 11.8 H RBC Cancelled 4.93 Hgb Cancelled 14.6 Hct Cancelled 42.8 MCV Cancelled 86.9 MCH Cancelled 29.6 MCHC Cancelled 34.0 RDW Cancelled 13.6 Plt Count Cancelled 233 Neut % (Auto) Cancelled 78.7 H Lymph % (Auto) Cancelled 9.9 L Atkinson % (Auto) Cancelled 10.4 Eos % (Auto) Cancelled 0.6 L Baso % (Auto) Cancelled 0.4 Neut # (Auto) Cancelled 9300 H Lymph # (Auto) Cancelled 1200 Atkinson # (Auto) Cancelled 1200 H Eos # (Auto) Cancelled 100 Baso # (Auto) Cancelled 0 Sodium 132 L Potassium 3.8 Chloride 97 L Carbon Dioxide 26 BUN 15 Creatinine 0.58 Estimated GFR > 60 BUN/Creatinine Ratio 25.9 H Glucose 98 Calcium 8.1 L NT-Pro-B Natriuret Pep 431 PFSH Medical History Abdominal pain Advance care planning Bilateral low back pain without sciatica (11/23/15) Chronic back pain (Unknown) Chronic constipation Cobalamin deficiency (01/11/16) Constipation (11/23/15) Dizziness (11/05/16) FRAZIER (dyspnea on exertion) Excessive daytime sleepiness (01/11/16) Frailty syndrome in geriatric patient History of seizure (Unknown) History of stroke (11/23/15) History of stroke Hx of gastric ulcer (08/2016) Hypercholesterolemia (Unknown) Hypertension (Unknown) 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) Osteopenia Osteoporosis Perforated viscus (09/03/16) Pure hypercholesterolemia (11/23/15) Sebaceous cyst Seborrheic keratosis (11/23/15) Seizure disorder (09/30/16) Tobacco abuse Urinary frequency Vitamin B12 deficiency (Unknown) Surgical History Anesthesia History of colonoscopy History of partial hysterectomy (~1985) Status post cholecystectomy Family History Mother Stroke Hypertension Alcoholism Seizure Father Alcoholism Sister Cancer Social History household members: none Smoking Status: Current every day smoker alcohol intake: never substance use type: does not use Assessment & Plan Assessment & Plan narrative: 1. Fracture left distal radius/ulna.? Orthopedic consult completed.?Underwent surgery for open reduction internal fixation on 01/27. Weight limit is 5lb lifting for 6 weeks. Will f/u in ortho clinic in 2 weeks for suture and wrist brace removal. 2. Concern for occult fracture left elbow.?Ruled out. Orthopedic consultation completed and felt no occult fracture in left elbow.. 3. Impaired mobility.? Unable to adequately mobilize with fractures left upper extremity and use of a walker.? PT rec SNF. 4. Known constipation problems.? Sennosides at night.? Lactulose daily. 5.. Hypertension.? Maintain patient's regular medication. 8. Osteoporosis.? Continue alendronate as well as calcium and vitamin D3.? Vitamin daily. 9. GERD.? Continue patient's regular medication of omeprazole daily. 10. History of COPD.? Treat with albuteral handheld as needed.? 11. Smoker.? Has smoked 1 pack per day since age 13.? Daily treatment with nicotine patch 21 mg.? Smoking cessation counseling given.??Patient to willing to continue on patch on discharge.? She should be on 21 mg for 6 weeks, then 14 mg for 2 weeks and finishing with 7 mg for 2 weeks.? This can be prescribed at discharge but I explained to the patient that she can buy these [id number] and the prescription will just be for understanding dosing. 12. Hyperlipidemia.? Maintain treatment with Crestor. 13. Hyponatremia.? Continue to monitor.. Slightly improving. 14. Elevated BNP.? Furosemide given intravenously in the ER.? Monitor level. Improved today, continue to monitor. Code:? DNR/DNI Substitute decision maker:? Shana Harrison DVT prophylaxis:? Enoxaparin 40 mg subcu every 24 hours Dispo: SNF on 01/29. Quality VTE Deep Vein Thrombosis/Pulmonary Embolism Present on Admission: No
[2023-01-28] MEDS: SENNOSIDES 8.6 MG TABLET 17.2 MG PO (21:23)
[2023-01-28] MEDS: ATORVASTATIN 20 MG TABLET 10 MG PO (21:24)
[2023-01-29] MEDS: PANTOPRAZOLE DR 20 MG TABLET PO (05:25)
[2023-01-29 06:15] VITALS: BP 143/90; PULSE 104; RESP 16; TEMP 36.6; O2SAT 92
[2023-01-29 08:41] VITALS: O2SAT 92
[2023-01-29] MEDS: NICOTINE 21 MG PATCH TOP (09:53)
[2023-01-29 09:54] VITALS: BP 120/79; PULSE 95
[2023-01-29] MEDS: FUROSEMIDE 40 MG TABLET PO (09:54)
[2023-01-29] MEDS: lisinopriL 20 MG TABLET 40 MG PO (09:54)
[2023-01-29] MEDS: CALCIUM CARBONATE 500 MG TAB PO (09:54)
[2023-01-29] MEDS: ENOXAPARIN 40 MG/0.4 ML SYRINGE SUBCUT (09:54)
[2023-01-29] MEDS: POTASSIUM CHLORIDE 20 MEQ TAB PO (09:54)
[2023-01-29] MEDS: CHOLECALCIFEROL (VITAMIN D3) 1,000 UNIT TABLET 1000 UNIT PO (09:54)
[2023-01-29] MEDS: LACTULOSE 20 GM/30 ML SOLUTION 13.332 GM PO (09:54)
[2023-01-29 09:55] VITALS: O2SAT 90
[2023-01-29] MEDS: AMLODIPINE 5 MG TABLET PO (09:55)
[2023-01-29] MEDS: DOCUSATE 100 MG CAPSULE PO (09:55)
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
--- NOTE | 2023-01-29 11:24 | CM.DPC ---
DCP Cont: Patient is going to [facility] today, worm picker 11:00. [facility], orders, were faxed. Patient does have a [employer] Mid Teacher named Ruby, gave her the update of going to [facility]. Was not aware that patient does have [facility] caregiver. P: Patient is discharging to [facility] today. Brooklyn Hein,Mid Teacher
== END 2023-01-29 11:09 ==
LOC: ED 01-26 10:14 → AC 01-26 10:33
PROVIDERS: Orthopaedic Surgery Foot and Ankle Surgery; Admitting Provider Neuromusculoskeletal Medicine, Sports Medicine; Emergency Provider Emergency Medicine; PCP Nurse Practitioner; Visit Provider Neuromusculoskeletal Medicine, Sports Medicine
PROC: (CPT 25607; principal; 2023-01-27 10:00)
DX: S52.502A Unspecified fracture of the lower end of left radius, initial encounter for closed fracture (principal); S52.602A Unspecified fracture of lower end of left ulna, initial encounter for closed fracture; W18.30XA Fall on same level, unspecified, initial encounter; I10 Essential (primary) hypertension; F17.200 Nicotine dependence, unspecified, uncomplicated; M25.422 Effusion, left elbow; M81.0 Age-related osteoporosis without current pathological fracture
CPT/HCPCS: 25607; 25530; 24300; 36415; 71045; 73030; 73080; 73100; 73110; 80048; 80053; 82550; 83690; 83880; 84484; 85025; 85610; 85730; 93005; 94760; 94762; 97116; 97162; 97166; 99285; G0378; C1713; J0171; J0690; J1170; J1650; J1940; J2250; J2270; J2405; J2704; J2930; J3010

== ENCOUNTER → 2023-02-19 09:32 | Outpatient (CLI) | payer OTHER, MEDICAID, SELFPAY ==
[2023-01-26 10:41] VITALS: BMI 19.2
--- NOTE | 2023-02-19 | DI.RAD.S_ITS ---
PROCEDURE: FL BARIUM SWALLOW W SPEECH INDICATIONS: Personal history of transient ischemic attack COMPARISON: None. TECHNIQUE: Examination was conducted in conjunction with speech pathology per standard protocol. In the lateral projection, filming was performed of the patient swallowing. AP projection filming may also be performed with patient swallowing. COMPARISON: FINDINGS: Tracheal aspiration visualized with thin barium. No definite aspiration identified with other tested consistencies. IMPRESSION: 1. Tracheal aspiration was observed during the exam. 2. Please see the speech pathologist report for additional details. Dictated by: Hector Rojas M.D. on 02/19/2023 at 11:16 Approved by: Hector Rojas M.D. on 02/19/2023 at 11:20
--- NOTE | 2023-02-19 14:40 | ST.SWALLOW ---
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 Dasia Peters (PCP); Dr Santa ([facility]) Reason for Referral dysphagia Setting Setting Outpatient Care Patient Information Identification Type Name,Date of Patient History Pt was seen for a Modified Barium Swallow Study at the referral of her physician. Pt is currently living at [facility] due to a broken wrist fracture secondary to fall at home. Pt has c/o frequent coughing for years He cough was observed to be frequent and had a wet quality. Pt's medical history included : tobacco use since age 13 (1 pack/day), COPD, GERD and CVA. A CT in February 2020 was conducted due to pt presenting with slurred speech. The results at that time indicated moderate cerebral volume loss for age, with resultant ventricular and sulcal prominence. There are severe periventricular and deep white matter chronic small vessel ischemic changes. Suspect old lacunar infarcts in left caudate, right putamen and thalami bilaterally. There is intracranial internal carotid artery atherosclerosis. Subjective Observations Pt was seated in the Modified Barium Swallow Study. Pt entered the fluoroscopy room in a wheelchair and was able to walk to the fluoro chair. Instructions and procedures were described for the pt. She indicated she understood and agreed to proceed. Patient Positioning Position View Lat-A/P Imaging Lateral View Textures Administered Trials Presented Thin Liquid via Spoon (IDDSI 0 ),Thin Liquid via Cup (IDDSI 0 ),Mildly Thick Liquid via Cup (IDDSI 2),Extremely Thick Liquid via Spoon (IDDSI 4), Regular (IDDSI 7) Barium Tablet Yes The IDDSI Framework Protocol: IDDSI.1 Oral Impairment Source: The Modified Barium Swallow Impairment Profile (MBSImP??) Lip Closure Interlabial escape; no progression to anterior lip Tongue Control During Bolus Hold Posterior escape of greater than half of bolus Bolus Preparation/Mastication Disorganized chewing/mashing with solid pieces of bolus unchewed Bolus Transport/Lingual Motion Delayed initiation of tongue motion Oral Residue Trace residue lining oral structures,Residue collection on oral structures Location Floor of mouth,Tongue,Lateral sulci Initiation of Pharyngeal Swallow Bolus head at pyriforms Additional Oral Impairment Observations OME indicated slight facial asymmetry with diminished smile/pucker dyscoordination and reduced ROM. Lingual and labial structures were observed to by WFL. Velar observation indicated inconsistent FILE KEEPER closure/ hypernasality. Pt's speech was notably slurred/dysarthric. DKS was slow and imprecise with difficulty producing /k/. Multisyllabic words were distorted. Pt wears upper and lower dentures that were reported, and observed, to be poorly fitting. The lower denture floated in the pt's mouth. Her dentures may be a factor in the pt's slurred speech; however OM dyscoordination/ROM and streng were also reduced. ORAL PHASE: Mastication of the cookie trial was observed to be dyscoordinated with pieces of the cookie remaining within the bolus when swallowing. Pt had difficulty with bolus movement AP with the extremely thick texture. Pt did safely swallow both textures. Pharyngeal Impairment Source: The Modified Barium Swallow Impairment Profile (MBSImP??) Soft Palate Elevation No bolus between soft palate & pharyngeal wall Laryngeal Elevation Part.sup.move.thyroid cart/ part.approx.arytenoids to epiglot.petiole Anterior Hyoid Excursion Partial anterior movement Epiglottic Movement Partial inversion Laryngeal Vestibular Closure Incomplete; narrow column air/ contrast in laryngeal vestibule Pharyngeal Stripping Wave Present - diminished Pharyngoesophageal Segment Opening Complete distention & complete duration; no obstruction of flow Tongue Base Retraction Narrow column of contrast/air between tongue base & post. pharyngeal wall Pharyngeal Residue Collection of residue within/ on pharyngeal structures Location Diffuse (>3 areas) Additional Pharyngeal Impairment Tongue base weakness Observations negatively impacted the hyolaryngeal elevation and epiglottic inversion. the epiglottis was noted to partially invert to horizontal with the tip against the posterior pharyngeal wall. Pharyngeal residue was observed to be diffuse throughout the pharynx. At the level of C4-C5, there appeared to be excess tissue/ thickness at the posterior pharyngeal wall, appearing to limit epiglottic inversion. Referral to ENT is recommended for further assessment. Pt has wet vocal quality and frequently presents with a wet cough. It is unknown fif there is a relationship between the wetness of py's cough/vocal quality and the thickness of the posterior pharynx. Closure of the laryngeal vestibule was week with laryngeal penetration observed x4 with tracheal aspiration x1. No reflexive cough was observed. Cued coughs were unproductive. Aspiration was observed with thin liquids in an upright position. With a chin tuck, there did not appear to be thin liquid aspiration for cup sip and consecutive swallows. [place] thick liquid was safely swallowed in the upright position. Pt was able to safely swallow the extremely thick and regular texture trials. A/P View Textures Administered Trials Presented Mildly Thick Liquid via Cup ( IDDSI 2) The IDDSI Framework Protocol: IDDSI.1 A/P View Observations Pharyngeal Contraction Complete Esophageal Clearance Upright Position Complete clearance; esophageal coating Esophageal Function WFL Additional A-P Observations The esophageal phase of swallowing appeared to be WFL. The barium tablet was briefly stopped at the valeculla, but passed with additional water. Esophagus was noted to clear within a timely manner. Clinical Impressions Dysphagia Type Oral,Pharyngeal Findings pt presents with oropharyngeal dysphagia due to poorly fitting dentures, overall weakness of the pharyngeal structures. Silent penetration /aspiration was observed without reflexive cough. Pt is at moderate to high risk for aspiration. Chin tuck with swallowing thin liquids is effective in preventing penetration/aspiration. [place] thick liquids are recommended if pt is non compliant with chin tuck. Rehabilitation Potential Good Patient Appropriate for Therapy Yes Recommendations Diet Liquids Order Mildly Thick (IDDSI 2) Diet Order Regular (IDDSI 7) Medication Recommendation As Tolerated,Whole in Carrier, Crushed in Carrier Aspiration Precautions Recommended Precautions Upright at 90 Degrees,Small Bites/Sips,Chin Tuck,Double Swallow,Liquids from Cup Treatment Plan Therapy Recommendations Outpatient Speech Therapy,Oral Motor Exercises,Base of Tongue Exercises Recommended Referrals ENT Consult,Dental Evaluation Additional Recommended Referrals DDS for denture fitting adjustment Therapy Strategy Recommendations Sitting Upright (90 deg),Chin Tuck,Double Swallow,Liquids from Cup,Small Bites and Sips Short Term Goals Referral to ENT and for swallowing therapy with ST Placement Recommendation After Discharge Home,Skilled Nursing Care Facility
== END ==
PROVIDERS: PCP Nurse Practitioner; Referring Provider Internal Medicine; Visit Provider Internal Medicine
DX: I69.30 Unspecified sequelae of cerebral infarction (principal)
CPT/HCPCS: 74230; 92611

== ENCOUNTER 2023-07-29 12:02 | Emergency (ER) | payer OTHER, MEDICAID, SELFPAY ==
[2023-01-26 10:41] VITALS: BMI 19.2
[2023-07-29 12:06] VITALS: BP 143/90; PULSE 79; RESP 18; TEMP 36.6; O2SAT 93; BMI 18.0
--- NOTE | 2023-07-29 13:49 | DI.RAD.S_ITS ---
PROCEDURE: XR KUB INDICATIONS: abd distention TECHNIQUE: One view of the abdomen acquired. COMPARISON: None. FINDINGS: Surgical changes and devices: Cholecystectomy clips. Bowel: Bowel gas pattern is normal. Soft tissues: No suspicious abdominal calcifications. Visualized solid organ contours appear normal in size. Bones: No suspicious bony lesions. IMPRESSION: No acute abnormality. Dictated by: Nohemi Sprague M.D. on 07/29/2023 at 14:25 Approved by: Nohemi Sprague M.D. on 07/29/2023 at 14:25
[2023-07-29] MEDS: SODIUM CHLORIDE 0.9% 1,000 ML 500 ML IV ×2 (14:09→15:43)
--- NOTE | 2023-07-29 14:41 | ED.BACK ---
HPI - Back Pain/Injury <Aminta Benson PA-C - Last Filed: 07/30/23 11:07> General Chief Complaint: Back Pain/Injury Stated Complaint: back pain, extended abdomin Time Seen by Provider: 07/29/23 12:49 History of Present Illness HPI Narrative: Niecy Rivera is a 77-year-old female with COPD (former smoker), chronic constipation, hypertension and history of stroke who lives at [facility] and presents due to abdominal distention and low back pain. She is accompanied by her former caregiver who knows her well but has not spoken to her in 1 week. Patient complains of new low back pain without radiculopathy, no loss of bowel or bladder control. She denies urinary symptoms. She has been taking Tylenol for the back pain. She also complains of a distended abdomen. Her caregiver states that it does appear more distended than usual. Patient does not know her last bowel movement or last urination. Patient has a tendency to drink only coffee, not water. Patient denies any falls recently. Patient does have significant osteoporosis and frailty. She denies diarrhea, nausea or vomiting. Her abdominal distention is not causing pain. She recently moved into assisted living, about 1 month ago, [facility]. She seems to like living there and thinks things are going well. Related Data Home Medications Medication Instructions Recorded Confirmed Disabled Parking Permit 1 ea Not Applicable DIRECTED 04/04/22 06/25/23 Blood Pressure Check 06/25/23 06/25/23 Previous Rx's Medication Instructions Recorded inhalational spacing device #1 ea 06/07/19 (Aerochamber MV spacer) Disabled Parking Permit See Rx Instructions .Route 10/23/22 .COMPLEX #1 unit acetaminophen 500 mg capsule 1,000 mg (2 x 500 mg) PO TID PRN 06/24/23 pain or fever #270 caps alendronate 70 mg tablet (Fosamax) 70 mg PO QWEEK #12 tabs 06/24/23 amlodipine 5 mg tablet 5 mg PO BID #180 tabs 06/24/23 aspirin 81 mg tablet,delayed 81 mg PO DAILY #90 tabs 06/24/23 release (Adult Low Dose Aspirin) calcium carbonate 300 mg (750 mg) 600 mg (2 x 300 mg (750 mg)) PO 12/12/23 chewable tablet (Antacid Extra BID #120 tabs Strength (calcium carb)) cholecalciferol (vitamin D3) 50 50 mcg PO BID #180 caps 06/24/23 mcg (2,000 unit) capsule food supplemt, lactose-reduced 1 ea PO BID 30 days #14,220 mL 06/24/23 (Ensure oral liquid) lactulose 20 gram/30 mL oral 20 ml PO DAILY #1,200 mL 06/24/23 solution lisinopril 20 mg tablet 40 mg (2 x 20 mg) PO DAILY #180 06/24/23 tabs omeprazole 20 mg capsule,delayed 20 mg PO DAILY #90 caps 06/24/23 release rosuvastatin 5 mg tablet (Crestor) 5 mg PO DAILY #90 tabs 06/24/23 cefdinir 300 mg capsule 300 mg PO BID #10 caps 07/29/23 Azo Urinary Pain Relief Maximum 2 tab PO TID PRN urinary pain #1 07/30/23 Strength Tablets or Uricalm pkg Allergies Allergy/AdvReac Type Severity Reaction Status Date / Time hydromorphone [HYDROMORPHONE] AdvReac Unknown Hallucinati Verified 07/29/23 12:11 ons Review of Systems <Aminta Benson PA-C - Last Filed: 07/30/23 11:07> Review of Systems ROS Unobtainable: All systems reviewed & are unremarkable except as noted in HPI and below Patient History <Aminta Benson PA-C - Last Filed: 07/30/23 11:07> Medical History Edentulous History of stroke Frailty syndrome in geriatric patient FRAZIER (dyspnea on exertion) Advance care planning Osteoporosis Osteopenia Tobacco abuse Chronic constipation Sebaceous cyst Abdominal pain Urinary frequency History of seizure (Unknown) Hx of gastric ulcer (08/2016) Vitamin B12 deficiency (Unknown) Chronic back pain (Unknown) Hypercholesterolemia (Unknown) Hypertension (Unknown) Dizziness (11/05/16) Seizure disorder (09/30/16) Perforated viscus (09/03/16) Cobalamin deficiency (01/11/16) Excessive daytime sleepiness (01/11/16) Seborrheic keratosis (11/23/15) Pure hypercholesterolemia (11/23/15) History of stroke (11/23/15) Constipation (11/23/15) Bilateral low back pain without sciatica (11/23/15) 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) Surgical History Anesthesia History of colonoscopy History of partial hysterectomy (~1985) Status post cholecystectomy Family History Mother Stroke Hypertension Alcoholism Seizure Father Alcoholism Sister Cancer Social History household members: none Smoking Status: Former smoker alcohol intake: never substance use type: does not use Smoking Status: Former smoker alcohol intake frequency: 0-2 drinks per day Substance Use Type: does not use Exam <Aminta Benson PA-C - Last Filed: 07/30/23 11:07> Narrative Exam Narrative: GENERAL: 77 year old patient, cachectic, irritable. In moderate distress. NEURO: AOx3, can identify self, birthday, year but poor historian in terms of her symptoms, last meal, last bowel movement, etc. HEAD: Atraumatic. Normocephalic. EYES: Pupils equal round and reactive. Extraocular motions intact. No scleral icterus. No injection or drainage. ENT: Nose without bleeding or purulent drainage. Lips parched, dry mucous membranes. Airway patent. CARDIOVASCULAR: Not tachycardic. Regular rate and rhythm without murmurs, gallops, or rubs. RESPIRATORY: Breath sounds mildly diminished in bases, trace wheeze. Patient mildly hypoxic while in the ER at 90-93%, history COPD. GASTROINTESTINAL: Abdomen soft, non-tender, mildly distended, no focal tenderness. SPINE: Generalized low back pain, tender to palpation. Patient able to stand and pivot with walker and assist ability is quite limited. She is good strength in bilateral lower extremities against light resistance and an intact neurovascular exam distally. Initial Vital Signs Initial Vital Signs: Vital Signs Temperature 98 F 07/29/23 12:06 Pulse Rate 79 07/29/23 12:06 Respiratory Rate 18 07/29/23 12:06 Blood Pressure 143/90 H 07/29/23 12:06 Pulse Oximetry 93 07/29/23 12:06 Oxygen Delivery Method Room Air 07/29/23 12:06 <Yudi Fall DO - Last Filed: 08/01/23 07:35> Initial Vital Signs Initial Vital Signs: Vital Signs Temperature 98 F 07/29/23 12:06 Pulse Rate 79 07/29/23 12:06 Respiratory Rate 18 07/29/23 12:06 Blood Pressure 143/90 H 07/29/23 12:06 Pulse Oximetry 93 07/29/23 12:06 Oxygen Delivery Method Room Air 07/29/23 12:06 Course <Aminta Benson PA-C - Last Filed: 07/30/23 11:07> Orders Ordered: Discontinued Medications Hydrocodone Bitart/Acetaminophen (Hydrocodone/Acet 5/325 Tablet) 1 tab PO NOW ONE Stop: 07/29/23 18:34 Last Admin: 07/29/23 18:43 Dose: 1 tab Documented By: RODRIGUE Sodium Chloride (Normal Saline 0.9%) 1,000 mls @ 500 mls/hr IV BOLUS ONE Stop: 07/29/23 15:46 Last Infusion: 07/29/23 15:10 Dose: Infused Documented By: Infusion: 07/29/23 15:10 Dose: 0 mls/hr Documented By: Admin: 07/29/23 14:09 Dose: 500 mls/hr Documented By: RAINA Sodium Chloride (Normal Saline 0.9%) 1,000 mls @ 500 mls/hr IV BOLUS ONE Stop: 07/29/23 17:10 Last Infusion: 07/29/23 17:56 Dose: Infused Documented By: Admin: 07/29/23 15:43 Dose: 500 mls/hr Documented By: RODRIGUE Vital Signs Vital signs: Vital Signs - 8 hr 07/29/23 12:06 Temperature 98 F Pulse Rate 79 Respiratory Rate 18 Blood Pressure 143/90 H Pulse Oximetry 93 Oxygen Delivery Method Room Air <Yudi Fall DO - Last Filed: 08/01/23 07:35> Orders Ordered: Discontinued Medications Hydrocodone Bitart/Acetaminophen (Hydrocodone/Acet 5/325 Tablet) 1 tab PO NOW ONE Stop: 07/29/23 18:34 Last Admin: 07/29/23 18:43 Dose: 1 tab Documented By: RODRIGUE Sodium Chloride (Normal Saline 0.9%) 1,000 mls @ 500 mls/hr IV BOLUS ONE Stop: 07/29/23 15:46 Last Infusion: 07/29/23 15:10 Dose: Infused Documented By: Infusion: 07/29/23 15:10 Dose: 0 mls/hr Documented By: Admin: 07/29/23 14:09 Dose: 500 mls/hr Documented By: RAINA Sodium Chloride (Normal Saline 0.9%) 1,000 mls @ 500 mls/hr IV BOLUS ONE Stop: 07/29/23 17:10 Last Infusion: 07/29/23 17:56 Dose: Infused Documented By: Admin: 07/29/23 15:43 Dose: 500 mls/hr Documented By: RODRIGUE Vital Signs Vital signs: Vital Signs - 8 hr 07/29/23 12:06 Temperature 98 F Pulse Rate 79 Respiratory Rate 18 Blood Pressure 143/90 H Pulse Oximetry 93 Oxygen Delivery Method Room Air MDM - Back Pain/Injury <Aminta Benson PA-C - Last Filed: 07/30/23 11:07> Lab Data 07/29/23 14:02 07/29/23 14:02 Labs: Lab Results 07/29/23 07/29/23 Range/Units 14:02 15:49 WBC 9.2 (4.5-11.0) X10^3/uL RBC 4.52 (4.0-5.2) X10^6/uL Hgb 13.2 (12.0-16.0) g/dL Hct 39.6 (36-46) % MCV 87.8 (80-100) fL MCH 29.3 (26-34) PG MCHC 33.4 (30-36) % RDW 15.3 H (11.6-14.8) % Plt Count 305 (150-400) X10^3/uL Neut % (Auto) 70.3 (50-75) % Lymph % (Auto) 17.9 L (25-40) % Hud[place]eth % (Auto) 10.0 (3-14) % Eos % (Auto) 1.4 L (2-4) % Baso % (Auto) 0.4 (0-2) % Neut # (Auto) 6400 (1759-7259) /uL Lymph # (Auto) 1600 (4072-2821) /uL [place] # (Auto) 900 (0-900) /uL Eos # (Auto) 100 (0-450) /uL Baso # (Auto) 0 (0-100) /uL Sodium 131 L (137-145) mmol/L Potassium 4.7 (3.4-5.1) mmol/L Chloride 98 (98-107) mmol/L Carbon Dioxide 25 (22-32) mmol/L BUN 34 H (7-17) mg/dL Creatinine 0.82 (0.52-1.04) mg/dL Estimated GFR > 60 (>60) mL/min BUN/Creatinine Ratio 41.5 H (6-22) Glucose 101 (80-110) mg/dL Calcium 9.6 (8.4-10.2) mg/dL Total Bilirubin 0.8 (0.2-1.3) mg/dL AST 34 (14-36) IU/L ALT 16 (<35) IU/L Alkaline Phosphatase 54 (38-126) U/L Total Protein 7.1 (6.3-8.2) g/dL Albumin 4.0 (3.5-5.0) g/dL Globulin 3.1 (1.7-4.1) g/dL Albumin/Globulin Ratio 1.3 (1.0-2.8) Urine RBC 0-1/hpf (0-5/HPF) Urine WBC 1-5/hpf (0-5/HPF) Ur Squamous Epith Cells 5-10 /hpf H (0-5/HPF) Urine Bacteria Many (>30) H (None) Ur Culture Indicated? Specimen cultured Urine Dip Bedside Urine Glucose Negative Bedside Urine Bilirubin - Negative Bedside Urine Ketone - Negative Urine Specific [place] 1.025 Bedside Urine Occult Blood - Negative Bedside Urine pH 6.0 Bedside Urine Protein - Negative Bedside Urine Urobilinogen - Negative Bedside Urine Nitrite + Positive Bedside Urine Leukocytes - Negative Esterase Imaging Data Abdominal x-ray: My Impression: Increased stool burden Radiologist's Impression: PROCEDURE: XR KUB INDICATIONS: abd distention TECHNIQUE: One view of the abdomen acquired. COMPARISON: None. FINDINGS: Surgical changes and devices: Cholecystectomy clips. Bowel: Bowel gas pattern is normal. Soft tissues: No suspicious abdominal calcifications. Visualized solid organ contours appear normal in size. Bones: No suspicious bony lesions. IMPRESSION: No acute abnormality. Dictated by: Nohemi Sprague M.D. on 07/29/2023 at 14:25 Approved by: Nohemi Sprague M.D. on 07/29/2023 at 14:25 Lumbar x-ray: Radiologist's Impression: PROCEDURE: XR LUMBAR SPINE 2-3V INDICATIONS: acute low back pain, no fall TECHNIQUE: 2 views of the lumbar spine were acquired. COMPARISON: None. FINDINGS: Bones: 5 [id number] vertebrae are present. The bones are severely demineralized. Straightening of the normal lumbar lordosis. No definite radiographic abnormality of acute fracture. Soft tissues: Overlying bowel gas pattern is normal. No suspicious soft tissue calcifications. IMPRESSION: Bones are severely demineralized limiting evaluation. No definite radiographic abnormality. If there is clinical concern for acute fracture recommend additional evaluation with CT. Approved by: Sharon Martinez M.D. on 07/29/2023 at 19:40 MDM Narrative Medical decision making narrative: Multiple etiologies for patient's symptoms considered including, but not limited to: Acute dehydration, constipation, urinary tract infection, low back strain, spinal fracture Patient clinically appears quite dry and is unable to void; bladder scan with trace urine. Patient given IV fluids and labs collected. Labs consistent with prerenal dehydration with elevated BUN. Mild hyponatremia noted, stable from previous labs. Otherwise, labs without clinically significant abnormality. Patient able to void after IV fluids and urine appears infected. Prescription for antibiotics sent to a local pharmacy as her mail-order pharmacy can not deliver immediately. Friend will pick pulling machine operator these medications. Abdomen is soft but distended. KUB read as normal but with increased stool burden by my interpretation. Patient has a history of chronic constipation within her chart. She is currently not nauseous, no abdominal pain. Recommend home treatment with prescribed lactulose and/or MiraLax. Increased hydration will also help this. Lumbar x-ray completed, significant demineralization noted, no acute fracture seen. Patient has been taking Tylenol for her low back pain but has opiate pain medication ordered per the review of prescription drug monitoring system. Encouraged her friends (who are at the bedside throughout her visit) to talk with the staff at the facility to treat her pain more aggressively. CHILD PROTECTIVE SERVICES SPECIALIST consulted while in ED regarding patient is living situation inability to attend to her ADLs, given that she is quite dehydrated today. Please see CHILD PROTECTIVE SERVICES SPECIALIST note. Message then within the EHR to PCP team and asked them to schedule a follow up appointment to reassess patient later this week. Patient states understanding of the instructions and plan, as well as her friends at bedside. Patient's symptoms improved over duration of stay with above-stated therapies. Findings and discharge diagnosis discussed with patient/family followed by verbalization of understanding Return precautions discussed with patient/family whom verbalize understanding of diagnosis and plan <Yudi Imelda Fall, DO - Last Filed: 08/01/23 07:35> Lab Data Labs: Lab Results 07/29/23 07/29/23 Range/Units 14:02 15:49 WBC 9.2 (4.5-11.0) X10^3/uL RBC 4.52 (4.0-5.2) X10^6/uL Hgb 13.2 (12.0-16.0) g/dL Hct 39.6 (36-46) % MCV 87.8 (80-100) fL MCH 29.3 (26-34) PG MCHC 33.4 (30-36) % RDW 15.3 H (11.6-14.8) % Plt Count 305 (150-400) X10^3/uL Neut % (Auto) 70.3 (50-75) % Lymph % (Auto) 17.9 L (25-40) % [place] % (Auto) 10.0 (3-14) % Eos % (Auto) 1.4 L (2-4) % Baso % (Auto) 0.4 (0-2) % Neut # (Auto) 6400 (6084-6687) /uL Lymph # (Auto) 1600 (4003-9671) /uL [place] # (Auto) 900 (0-900) /uL Eos # (Auto) 100 (0-450) /uL Baso # (Auto) 0 (0-100) /uL Sodium 131 L (137-145) mmol/L Potassium 4.7 (3.4-5.1) mmol/L Chloride 98 (98-107) mmol/L Carbon Dioxide 25 (22-32) mmol/L BUN 34 H (7-17) mg/dL Creatinine 0.82 (0.52-1.04) mg/dL Estimated GFR > 60 (>60) mL/min BUN/Creatinine Ratio 41.5 H (6-22) Glucose 101 (80-110) mg/dL Calcium 9.6 (8.4-10.2) mg/dL Total Bilirubin 0.8 (0.2-1.3) mg/dL AST 34 (14-36) IU/L ALT 16 (<35) IU/L Alkaline Phosphatase 54 (38-126) U/L Total Protein 7.1 (6.3-8.2) g/dL Albumin 4.0 (3.5-5.0) g/dL Globulin 3.1 (1.7-4.1) g/dL Albumin/Globulin Ratio 1.3 (1.0-2.8) Urine RBC 0-1/hpf (0-5/HPF) Urine WBC 1-5/hpf (0-5/HPF) Ur Squamous Epith Cells 5-10 /hpf H (0-5/HPF) Urine Bacteria Many (>30) H (None) Ur Culture Indicated? Specimen cultured Urine Dip Bedside Urine Glucose Negative Bedside Urine Bilirubin - Negative Bedside Urine Ketone - Negative Urine Specific [place] 1.025 Bedside Urine Occult Blood - Negative Bedside Urine pH 6.0 Bedside Urine Protein - Negative Bedside Urine Urobilinogen - Negative Bedside Urine Nitrite + Positive Bedside Urine Leukocytes - Negative Esterase Discharge Plan Departure Patient Disposition: Home Clinical Impression: Acute UTI Constipation Qualifiers: Constipation type: other constipation type Qualified Code(s): K59.09 - Other constipation Low back pain Qualifiers: Chronicity: chronic Back pain laterality: bilateral Sciatica presence: without sciatica Qualified Code(s): M54.50 - Low back pain, unspecified Instructions: DI for Low Back Pain, DI for Urinary Tract Infection (UTI), DI for Constipation Activity Restrictions/Additional Instructions: *You have been diagnosed with urinary tract infection, constipation and low back pain. I have sent a prescription for an antibiotic to your pharmacy. Please take this as prescribed and complete all doses, even if you feel better. Your x-ray and abdominal exam are consistent with constipation. I would suggest taking MiraLax (polyethylene glycol), which is a powder that you can mix in water or juice. I would suggest taking this twice a day until you are having regular bowel movements and then you can decrease to once a day if you continue to have regular bowel movements. You may also use the lactulose that has been previously prescribed to you, which is a medicine that helps you have bowel movements. You should be drinking at least 8 8 oz cups of water per day. This will help with your hydration as well as your constipation. *What to do: *Please continue to take your regular medications as directed. [x] New medication prescriptions sent to your pharmacy: [ ] [ ] New medication written as a paper prescription [ ] No new medications given *Please follow up with your primary care provider in 2-3 days, call for an appointment. Let them know you were seen in the Emergency Department and that we ask that you be seen in follow up. We will electronically transmit a record of today's note if your PCP is in our system *If you do not have a primary care provider please contact the [facility] Resource line at [phone]. They will ask some questions about your medical history and help get you set up with a doctor in the community. *Return to Emergency Department if you should have any new, worsening or concerning symptoms, such as [fever greater than 101 F, shaking chills, worsening pain, persistent vomiting or other concerning symptoms]. Prescriptions: New cefdinir 300 mg capsule 300 mg PO BID Qty: 10 0RF No Action lisinopril 20 mg tablet 40 mg PO DAILY Qty: 180 3RF Hold Instructions: unclear if still needed Rx Instructions: Take 2 tabs by mouth each night at bedtime for hypertension, check BP monthly please rosuvastatin [Crestor] 5 mg tablet 5 mg PO DAILY Qty: 90 3RF Rx Instructions: Take 1 tab daily to prevent stroke omeprazole 20 mg capsule,delayed release(DR/EC) 20 mg PO DAILY Qty: 90 3RF Rx Instructions: Take 1 capsule/tab by mouth daily lactulose 20 gram/30 mL solution 20 ml PO DAILY Qty: 1200 7RF Rx Instructions: HOLD for diarrhea Ensure Liquid 1 ea PO BID 30 Days Qty: 31192 11RF Rx Instructions: 2 ensure drinks daily, dispense 1mo supply x one year prefers chocolate flavor beverage amlodipine 5 mg tablet 5 mg PO BID Qty: 180 3RF Hold Instructions: unclear if still needed Rx Instructions: Take 1 tab twice per day for hypertension, take BP monthly please alendronate [Fosamax] 70 mg tablet 70 mg PO QWEEK Qty: 12 3RF Rx Instructions: takes on Fridays acetaminophen 500 mg capsule 1,000 mg PO TID PRN (Reason: pain or fever) Qty: 270 10RF Rx Instructions: Take 2 caps twice daily NTE 3000mg/24 hours aspirin [Adult Low Dose Aspirin] 81 mg tablet,delayed release (DR/EC) 81 mg PO DAILY Qty: 90 3RF calcium carbonate [Antacid Ext Str (calcium carb)] 300 mg (750 mg) tablet,chewable 600 mg PO BID Qty: 120 12RF Rx Instructions: Take 2 tabs with Vitamin D3 2000iu twice daily for bone health cholecalciferol (vitamin D3) 50 mcg (2,000 unit) capsule 50 mcg PO BID Qty: 180 3RF Rx Instructions: Take twice daily with calcium Azo Urinary Pain Relief Maximum Strength Tablets or Uricalm 2 tab PO TID PRN (Reason: urinary pain) Qty: 1 0RF Rx Instructions: Azo or Uri-calm to be purchased over the counter by nurse/tech at [facility]. Not a prescription medication Follow package directions: Take two (2) tablets three (3) times daily for up to two days. Take with a full glass of water, with or after meals as needed. (DME) Aerochamber MV Spacer See Rx Instructions .ROUTE .MEDSUPPLY Qty: 1 0RF Rx Instructions: As directed Disabled Parking Permit See Rx Instructions .ROUTE .COMPLEX Qty: 1 0RF Rx Instructions: I find this patient to be medically disabled and qualify for disabled parking as indicated and signed on the accompanying disabled parking application for individuals. (DME) Blood Pressure Check See Rx Instructions .ROUTE .MEDSUPPLY Rx Instructions: Take blood pressure daily call for SBP >170 or DBP >110 Disabled Parking Permit packet 1 ea Not Applicable DIRECTED Referrals: Dasia Peters ARNP [Primary Care Provider] - Stand Alone Forms: Patient Portal/API ED Sign-out <Yudi Fall DO - Last Filed: 08/01/23 07:35> Cosign ED Attending Brisa Attestation: I was immediately available in the department for consultation.
[2023-07-29 15:02] LABS: Add Manual Diff / Slide Review NO; Basophils Absolute Auto 0 /uL (0-100); Basophils Percent Auto 0.4 % (0-2); Eosinophils Absolute Auto 100 /uL (0-450); Eosinophils Percent Auto 1.4 % (2-4); Hematocrit 39.6 % (36-46); Hemoglobin 13.2 g/dL (12.0-16.0); Lymphocytes Absolute Auto 1600 /uL (1100-4500); Lymphocytes Percent Auto 17.9 % (25-40); Mean Corpuscular HGB Conc 33.4 % (30-36); Mean Corpuscular Hemoglobin 29.3 PG (26-34); Mean Corpuscular Volume 87.8 fL (80-100); Monocytes Absolute Auto 900 /uL (0-900); Neutrophils Absolute Auto 6400 /uL (1500-7000); Neutrophils Percent Auto 70.3 % (50-75); Platelet Count 305 X10^3/uL (150-400); Red Blood Cell Count 4.52 X10^6/uL (4.0-5.2); Red Cell Distribution Width 15.3 % (11.6-14.8); White Blood Cell Count 9.2 X10^3/uL (4.5-11.0)
[2023-07-29 15:07] LABS: Alanine Aminotransferase 16 IU/L (<35); Albumin Globulin Ratio 1.3 (1.0-2.8); Alkaline Phosphatase 54 U/L (38-126); Aspartate Aminotransferase 34 IU/L (14-36); BUN Creatinine Ratio 41.5 (6-22); Bilirubin Total 0.8 mg/dL (0.2-1.3); Blood Urea Nitrogen 34 mg/dL (7-17); Calcium 9.6 mg/dL (8.4-10.2); Carbon Dioxide 25 mmol/L (22-32); Chloride 98 mmol/L (98-107); Estimated Glomerular Filt Rate > 60 mL/min (>60); Globulin 3.1 g/dL (1.7-4.1); Glucose 101 mg/dL (80-110); HEMOLYSIS 22 (0-50); Potassium 4.7 mmol/L (3.4-5.1); Sodium 131 mmol/L (137-145); Total Protein 7.1 g/dL (6.3-8.2)
--- NOTE | 2023-07-29 15:10 | PC.NURSE ---
Pt w/c to bathroom to provide a urine sample. Her brief was soaked and changed. No clean brief available after using the bathroom and pt states get me up now!. Pt situated with chux pads in her pants. Pt repositioned back into her wheelchair.
[2023-07-29 15:55] VITALS: BP 118/67; PULSE 89; RESP 16; O2SAT 89
[2023-07-29 16:26] LABS: Bacteria Urine Many (>30); Culture Indicated Urine Specimen Cultured; RBC Urine 0-1/HPF (0-5/HPF); Squamous Epithelial Cell Urine 5-10 /HPF (0-5/HPF); WBC Urine 1-5/HPF (0-5/HPF)
--- NOTE | 2023-07-29 17:11 | DI.RAD.S_ITS ---
PROCEDURE: XR LUMBAR SPINE 2-3V INDICATIONS: acute low back pain, no fall TECHNIQUE: 2 views of the lumbar spine were acquired. COMPARISON: None. FINDINGS: Bones: 5 [id number] vertebrae are present. The bones are severely demineralized. Straightening of the normal lumbar lordosis. No definite radiographic abnormality of acute fracture. Soft tissues: Overlying bowel gas pattern is normal. No suspicious soft tissue calcifications. IMPRESSION: Bones are severely demineralized limiting evaluation. No definite radiographic abnormality. If there is clinical concern for acute fracture recommend additional evaluation with CT. Approved by: Sharon Martinez M.D. on 07/29/2023 at 19:40
--- NOTE | 2023-07-29 18:27 | PC.NURSE ---
[facility] was called and asked if pt's RX for antibiotics could be picked up tonight. Facility staff states [facility] would deliver medication is tomorrow. Provider notified pt's friend Vicky, who states she can pick it up locally tonight for patient.
--- NOTE | 2023-07-29 18:28 | CM.SWNOTE ---
ED INSPECTOR MULTIFOCAL LENS Note INSPECTOR MULTIFOCAL LENS receives consult due to concern for patient's confused presentation and to ensure patient's safety at home. Patient is 77 y/o female who presents to ED with friend due to concern for patient's back pain. It is identified that patient is dehydrated and has UTI. Patient's PCP is DEBORAH Dumont. Patient had recent PCP appt in June 2023 and has f/u appt in September 2023, patient has [facility] and Medicaid insurance. Patient has hx of SNF rehab stay post F in 2022, and hx of SNF rehab stays in previous years at [facility] and [facility]. It is reported that patient recently moved in at [facility]. INSPECTOR MULTIFOCAL LENS enters room to meet with patient, patient presents as A/Ox4. Patient is slow to respond to questions and endorses her back is hurting. Patient endorses her place at [facility] is really good. Patient endorses she plays games there and they assist her with ADLs as needed. Patient endorses she uses a FWW. Patient endorses she broke her wrist in previous months and completed PT. Patient endorses she is doing well and enjoying living at [facility] and that her friends visit her. Patient endorses she has a daughter with MS who lives in [place] and a son that lives in [place]. Patient's friend endorses that patient is doing well at [facility] but patient called friend yesterday stating her back was hurting. Per EMR, patient has [facility] geriatric case manager Ruby. Patient denies any concerns or needs. Plan: patient to d/c to home at [facility] with friend upon medical clearance, patient to d/c with rx for antibiotics. EVERETT WilliamSW
[2023-07-29 18:31] VITALS: BP 144/70; PULSE 95; RESP 12; O2SAT 87
[2023-07-29] MEDS: HYDROCODONE/ACET 5/325 TABLET 1 TAB PO (18:43)
--- NOTE | 2023-07-29 19:00 | PC.NURSE ---
Pt was repositioned out of bed and into the wheelchair. Pt's brief and pants were wet. Pt refused us to change her into clean brief and give her warm blankets. Pt states just leave me how I am and let me go. Pt's friend at bedside states they will help her change back at [facility].
== END 2023-07-29 19:06 | disposition home or self-care (01) ==
PROVIDERS: Emergency Provider Physician Assistant; PCP Nurse Practitioner
DX: N39.0 Urinary tract infection, site not specified (principal); M54.50 Low back pain, unspecified; R10.9 Unspecified abdominal pain; K59.09 Other constipation
CPT/HCPCS: 36415; 51798; 72100; 74018; 80053; 81003; 81015; 85025; 87077; 87086; 87186; 96360; 96361; 99284

== ENCOUNTER 2023-08-01 16:17 | Emergency (ER) | payer OTHER, MEDICAID, SELFPAY ==
[2023-01-26 10:41] VITALS: BMI 19.2
[2023-08-01] VITALS (10 sets, daily range): BP systolic 152–190; BP diastolic 94–131; PULSE 71–99; RESP 16–18; TEMP 36.7–36.9; O2SAT 88–96; BMI 19.7
--- NOTE | 2023-08-01 16:49 | ED_ITS ---
HPI - Back Pain/Injury <Yudi Fall, DO - Last Filed: 08/02/23 18:36> General Chief Complaint: Back Pain/Injury Stated Complaint: Back Pain Time Seen by Provider: 08/01/23 16:21 Related Data Home Medications Medication Instructions Recorded Confirmed Disabled Parking Permit 1 ea Not Applicable DIRECTED 04/04/22 06/25/23 Blood Pressure Check 06/25/23 06/25/23 Previous Rx's Medication Instructions Recorded inhalational spacing device #1 ea 06/07/19 (Aerochamber MV spacer) Disabled Parking Permit See Rx Instructions .Route 10/23/22 .COMPLEX #1 unit acetaminophen 500 mg capsule 1,000 mg (2 x 500 mg) PO TID PRN 06/24/23 pain or fever #270 caps alendronate 70 mg tablet (Fosamax) 70 mg PO QWEEK #12 tabs 06/24/23 amlodipine 5 mg tablet 5 mg PO BID #180 tabs 06/24/23 aspirin 81 mg tablet,delayed 81 mg PO DAILY #90 tabs 06/24/23 release (Adult Low Dose Aspirin) calcium carbonate 300 mg (750 mg) 600 mg (2 x 300 mg (750 mg)) PO 06/24/23 chewable tablet (Antacid Extra BID #120 tabs Strength (calcium carb)) cholecalciferol (vitamin D3) 50 50 mcg PO BID #180 caps 06/24/23 mcg (2,000 unit) capsule food supplemt, lactose-reduced 1 ea PO BID 30 days #14,220 mL 06/24/23 (Ensure oral liquid) lactulose 20 gram/30 mL oral 20 ml PO DAILY #1,200 mL 06/24/23 solution lisinopril 20 mg tablet 40 mg (2 x 20 mg) PO DAILY #180 06/24/23 tabs omeprazole 20 mg capsule,delayed 20 mg PO DAILY #90 caps 06/24/23 release rosuvastatin 5 mg tablet (Crestor) 5 mg PO DAILY #90 tabs 06/24/23 cefdinir 300 mg capsule 300 mg PO BID #10 caps 07/29/23 Azo Urinary Pain Relief Maximum 2 tab PO TID PRN urinary pain #1 07/30/23 Strength Tablets or Uricalm pkg cephalexin 500 mg capsule 500 mg PO BID 5 days #10 caps 08/01/23 polyethylene glycol 3350 17 17 g PO BID PRN constipation #510 08/01/23 gram/dose oral powder (Miralax) grams Allergies Allergy/AdvReac Type Severity Reaction Status Date / Time hydromorphone [HYDROMORPHONE] AdvReac Unknown Hallucinati Verified 07/29/23 12:11 ons <Emmett Howell DO - Last Filed: 08/01/23 23:29> General Source: patient Mode of arrival: Ambulatory Limitations: no limitations History of Present Illness HPI Narrative: Patient is a 77-year-old female. Recently seen here in the emergency department for lower back pain. His diagnosed with a urinary tract infection. Is currently on antibiotics. She comes in the emergency department today with continued discomfort. She also has not had a bowel movement in several days. She thinks she had an episode of urinary incontinence but can not remember specifically when this happened. No fevers. No vomiting. No chest pain. No shortness of breath. States the pain is both sides of her lower back. Review of Systems <Yudi Fall DO - Last Filed: 08/02/23 18:36> Review of Systems ROS Unobtainable: All systems reviewed & are unremarkable except as noted in HPI and below Patient History <Yudi Fall DO - Last Filed: 08/02/23 18:36> Medical History Edentulous History of stroke Frailty syndrome in geriatric patient FRAZIER (dyspnea on exertion) Advance care planning Osteoporosis Osteopenia Tobacco abuse Chronic constipation Sebaceous cyst Abdominal pain Urinary frequency History of seizure (Unknown) Hx of gastric ulcer (08/2016) Vitamin B12 deficiency (Unknown) Chronic back pain (Unknown) Hypercholesterolemia (Unknown) Hypertension (Unknown) Dizziness (11/05/16) Seizure disorder (09/30/16) Perforated viscus (09/03/16) Cobalamin deficiency (01/11/16) Excessive daytime sleepiness (01/11/16) Seborrheic keratosis (11/23/15) Pure hypercholesterolemia (11/23/15) History of stroke (11/23/15) Constipation (11/23/15) Bilateral low back pain without sciatica (11/23/15) 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) Surgical History Anesthesia History of colonoscopy History of partial hysterectomy (~1985) Status post cholecystectomy Family History Mother Stroke Hypertension Alcoholism Seizure Father Alcoholism Sister Cancer Social History household members: none Smoking Status: Former smoker alcohol intake: never substance use type: does not use Smoking Status: Former smoker alcohol intake frequency: 0-2 drinks per day Substance Use Type: does not use Exam <Yudi Fall DO - Last Filed: 08/02/23 18:36> Initial Vital Signs Initial Vital Signs: Vital Signs Temperature 98.5 F 08/01/23 16:22 Pulse Rate 99 H 08/01/23 16:22 Respiratory Rate 16 08/01/23 16:22 Blood Pressure 190/97 H 08/01/23 16:22 Pulse Oximetry 93 08/01/23 16:22 Oxygen Delivery Method Room Air 08/01/23 16:22 <Emmett Howell DO - Last Filed: 08/01/23 23:29> Initial Vital Signs Initial Vital Signs: Vital Signs Temperature 98.5 F 08/01/23 16:22 Pulse Rate 99 H 08/01/23 16:22 Respiratory Rate 16 08/01/23 16:22 Blood Pressure 190/97 H 08/01/23 16:22 Pulse Oximetry 93 08/01/23 16:22 Oxygen Delivery Method Room Air 08/01/23 16:22 Course <DO Arnel Fong Last Filed: 08/02/23 18:36> Orders Ordered: Discontinued Medications Cephalexin HCl (Cephalexin 250 Mg Capsule) 500 mg PO NOW ONE Stop: 08/01/23 19:58 Last Admin: 08/01/23 20:03 Dose: 500 mg Documented By: OLIVE Acetaminophen (Ofirmev) 1,000 mg in 100 mls @ 400 mls/hr IV NOW ONE Stop: 08/01/23 17:20 Last Infusion: 08/01/23 19:05 Dose: Infused Documented By: Infusion: 08/01/23 18:31 Dose: 400 mls/hr Documented By: Admin: 08/01/23 17:49 Dose: 400 mls/hr Documented By: OLIVE Vital Signs Vital signs: Vital Signs - 8 hr 08/01/23 16:22 08/01/23 17:37 08/01/23 18:13 Temperature 98.5 F Pulse Rate 99 H 75 72 Respiratory Rate 16 Blood Pressure 190/97 H Pulse Oximetry 93 95 96 Oxygen Delivery Method Room Air Nasal Cannula Oxygen Flow Rate 2 08/01/23 18:13 08/01/23 18:30 08/01/23 18:30 Temperature Pulse Rate 82 Respiratory Rate Blood Pressure 173/131 H 162/105 H Pulse Oximetry 95 Oxygen Delivery Method Oxygen Flow Rate 08/01/23 18:54 08/01/23 18:54 08/01/23 19:00 Temperature Pulse Rate 71 Respiratory Rate Blood Pressure 170/101 H 152/94 H Pulse Oximetry 88 L Oxygen Delivery Method Room Air Oxygen Flow Rate 08/01/23 19:00 08/01/23 19:30 08/01/23 20:00 Temperature Pulse Rate 76 86 Respiratory Rate 18 Blood Pressure 157/98 H Pulse Oximetry 93 93 Oxygen Delivery Method Nasal Cannula Oxygen Flow Rate 2 08/01/23 20:00 08/01/23 20:17 08/01/23 20:18 Temperature 98.1 F 98.1 F Pulse Rate 79 Respiratory Rate Blood Pressure Pulse Oximetry 94 Oxygen Delivery Method Oxygen Flow Rate <Emmett Howell DO - Last Filed: 08/01/23 23:29> Orders Ordered: Discontinued Medications Cephalexin HCl (Cephalexin 250 Mg Capsule) 500 mg PO NOW ONE Stop: 08/01/23 19:58 Last Admin: 08/01/23 20:03 Dose: 500 mg Documented By: OLIVE Acetaminophen (Ofirmev) 1,000 mg in 100 mls @ 400 mls/hr IV NOW ONE Stop: 08/01/23 17:20 Last Infusion: 08/01/23 19:05 Dose: Infused Documented By: Infusion: 08/01/23 18:31 Dose: 400 mls/hr Documented By: Admin: 08/01/23 17:49 Dose: 400 mls/hr Documented By: OLIVE Vital Signs Vital signs: Vital Signs - 8 hr 08/01/23 16:22 08/01/23 17:37 08/01/23 18:13 Temperature 98.5 F Pulse Rate 99 H 75 72 Respiratory Rate 16 Blood Pressure 190/97 H Pulse Oximetry 93 95 96 Oxygen Delivery Method Room Air Nasal Cannula Oxygen Flow Rate 2 08/01/23 18:13 08/01/23 18:30 08/01/23 18:30 Temperature Pulse Rate 82 Respiratory Rate Blood Pressure 173/131 H 162/105 H Pulse Oximetry 95 Oxygen Delivery Method Oxygen Flow Rate 08/01/23 18:54 08/01/23 18:54 08/01/23 19:00 Temperature Pulse Rate 71 Respiratory Rate Blood Pressure 170/101 H 152/94 H Pulse Oximetry 88 L Oxygen Delivery Method Room Air Oxygen Flow Rate 08/01/23 19:00 08/01/23 19:30 08/01/23 20:00 Temperature Pulse Rate 76 86 Respiratory Rate 18 Blood Pressure 157/98 H Pulse Oximetry 93 93 Oxygen Delivery Method Nasal Cannula Oxygen Flow Rate 2 08/01/23 20:00 08/01/23 20:17 08/01/23 20:18 Temperature 98.1 F 98.1 F Pulse Rate 79 Respiratory Rate Blood Pressure Pulse Oximetry 94 Oxygen Delivery Method Oxygen Flow Rate MDM - Back Pain/Injury <Yudi Fall, DO - Last Filed: 08/02/23 18:36> Lab Data 08/01/23 16:24 08/01/23 16:24 Labs: Lab Results 08/01/23 08/01/23 Range/Units 16:24 19:07 WBC 11.7 H (4.5-11.0) X10^3/uL RBC 4.85 (4.0-5.2) X10^6/uL Hgb 14.0 (12.0-16.0) g/dL Hct 42.8 (36-46) % MCV 88.3 (80-100) fL MCH 29.0 (26-34) PG MCHC 32.8 (30-36) % RDW 15.5 H (11.6-14.8) % Plt Count 343 (150-400) X10^3/uL Neut % (Auto) 64.2 (50-75) % Lymph % (Auto) 21.2 L (25-40) % [place] % (Auto) 12.4 (3-14) % Eos % (Auto) 1.7 L (2-4) % Baso % (Auto) 0.5 (0-2) % Neut # (Auto) 7500 H (9011-8774) /uL Lymph # (Auto) 2500 (8878-1902) /uL [place] # (Auto) 1500 H (0-900) /uL Eos # (Auto) 200 (0-450) /uL Baso # (Auto) 100 (0-100) /uL Sodium 131 L (137-145) mmol/L Potassium 4.9 (3.4-5.1) mmol/L Chloride 99 (98-107) mmol/L Carbon Dioxide 23 (22-32) mmol/L BUN 26 H (7-17) mg/dL Creatinine 0.74 (0.52-1.04) mg/dL Estimated GFR > 60 (>60) mL/min BUN/Creatinine Ratio 35.1 H (6-22) Glucose 104 (80-110) mg/dL Calcium 9.8 (8.4-10.2) mg/dL Total Bilirubin 0.9 (0.2-1.3) mg/dL AST 48 H (14-36) IU/L ALT 20 (<35) IU/L Alkaline Phosphatase 53 (38-126) U/L Total Protein 7.6 (6.3-8.2) g/dL Albumin 4.3 (3.5-5.0) g/dL Globulin 3.3 (1.7-4.1) g/dL Albumin/Globulin Ratio 1.3 (1.0-2.8) Lipase 59 (23-300) U/L Urine RBC None seen (0-5/HPF) Urine WBC 0-1/hpf (0-5/HPF) Ur Squamous Epith Cells 1-5 /hpf (0-5/HPF) Urine Bacteria Occasional (0-1) (None) Ur Culture Indicated? Specimen cultured Vol Urine Centrifuged 10ml (spun) Urine Dip Bedside Urine Glucose Negative Bedside Urine Bilirubin - Negative Bedside Urine Ketone - Negative Urine Specific [place] 1.010 Bedside Urine Occult Blood - Negative Bedside Urine pH 6.0 Bedside Urine Protein - Negative Bedside Urine Urobilinogen - Negative Bedside Urine Nitrite + Positive Bedside Urine Leukocytes +/- 15 Esterase MDM Narrative Medical decision making narrative: Patient seen briefly by myself. Labs including CT abdomen pelvis were ordered patient has complaint of back pain but also quite distended in her abdomen. States has not had a bowel movement. But no vomiting. Patient signed out to Dr. Howell while awaiting labs and imaging. Dr Howell: Received turned over. Review patient's history and physical exam. CT scan of the abdomen and pelvis shows a large stool burden in the colon. She does have a distended abdomen but it is soft and is not tender. She does not remember the last time that she had a bowel movement. We did discuss the use of laxatives at home. Initially I did not realize that she was already being treated for urinary tract infection so she was given a dose of Keflex here in the ER and a prescription was prescribed to her. Once I was informed that she is currently on antibiotics we will have her continue those antibiotics and not changed anything new. No indication for surgical consultation. No indication for admission to the hospital. She was tolerating oral intake. She was given return precautions. She expressed understanding and agreement. <Emmett Howell, - Last Filed: 08/01/23 23:29> Lab Data Attestation: I reviewed the patient's lab results. Labs: Lab Results 08/01/23 08/01/23 Range/Units 16:24 19:07 WBC 11.7 H (4.5-11.0) X10^3/uL RBC 4.85 (4.0-5.2) X10^6/uL Hgb 14.0 (12.0-16.0) g/dL Hct 42.8 (36-46) % MCV 88.3 (80-100) fL MCH 29.0 (26-34) PG MCHC 32.8 (30-36) % RDW 15.5 H (11.6-14.8) % Plt Count 343 (150-400) X10^3/uL Neut % (Auto) 64.2 (50-75) % Lymph % (Auto) 21.2 L (25-40) % [place] % (Auto) 12.4 (3-14) % Eos % (Auto) 1.7 L (2-4) % Baso % (Auto) 0.5 (0-2) % Neut # (Auto) 7500 H (9509-1505) /uL Lymph # (Auto) 2500 (6895-3430) /uL [place] # (Auto) 1500 H (0-900) /uL Eos # (Auto) 200 (0-450) /uL Baso # (Auto) 100 (0-100) /uL Sodium 131 L (137-145) mmol/L Potassium 4.9 (3.4-5.1) mmol/L Chloride 99 (98-107) mmol/L Carbon Dioxide 23 (22-32) mmol/L BUN 26 H (7-17) mg/dL Creatinine 0.74 (0.52-1.04) mg/dL Estimated GFR > 60 (>60) mL/min BUN/Creatinine Ratio 35.1 H (6-22) Glucose 104 (80-110) mg/dL Calcium 9.8 (8.4-10.2) mg/dL Total Bilirubin 0.9 (0.2-1.3) mg/dL AST 48 H (14-36) IU/L ALT 20 (<35) IU/L Alkaline Phosphatase 53 (38-126) U/L Total Protein 7.6 (6.3-8.2) g/dL Albumin 4.3 (3.5-5.0) g/dL Globulin 3.3 (1.7-4.1) g/dL Albumin/Globulin Ratio 1.3 (1.0-2.8) Lipase 59 (23-300) U/L Urine RBC None seen (0-5/HPF) Urine WBC 0-1/hpf (0-5/HPF) Ur Squamous Epith Cells 1-5 /hpf (0-5/HPF) Urine Bacteria Occasional (0-1) (None) Ur Culture Indicated? Specimen cultured Vol Urine Centrifuged 10ml (spun) Urine Dip Bedside Urine Glucose Negative Bedside Urine Bilirubin - Negative Bedside Urine Ketone - Negative Urine Specific [place] 1.010 Bedside Urine Occult Blood - Negative Bedside Urine pH 6.0 Bedside Urine Protein - Negative Bedside Urine Urobilinogen - Negative Bedside Urine Nitrite + Positive Bedside Urine Leukocytes +/- 15 Esterase Imaging Data Chest x-ray: Radiologist's Impression: PROCEDURE: XR CHEST 1V INDICATIONS: coarse lungs/hypoxia TECHNIQUE: One view of the chest was acquired. COMPARISON: [facility], CR, XR CHEST 1V, 01/26/2023, 8:00. [facility], CR, XR CHEST 1V, 04/04/2022, 11:22. FINDINGS: Surgical changes and devices: None. Lungs and pleura: Lungs are clear. No pleural effusions or pneumothorax. Mediastinum: Mediastinal contours appear normal. Heart size is normal. Bones and chest wall: No suspicious bony lesions. Overlying soft tissues appear unremarkable. IMPRESSION: No acute cardiopulmonary abnormality is seen. CT scan - abdomen/pelvis: Radiologist's Impression: PROCEDURE: CT ABDOMEN PELVIS W CON INDICATIONS: back pain, abd distended, no BM x 3 days. TECHNIQUE: After the administration of intravenous contrast, axial sections acquired from the lung bases to the pubic symphysis. Coronal and sagittal reformats were performed. For radiation dose reduction, the following was used: automated exposure control, adjustment of mA and/or kV according to patient size. COMPARISON: [facility], CT, CT ABDOMEN PELVIS W CON, 01/02/2018, 10:36. FINDINGS: Image quality: Diagnostic. Lower Chest: Cardiomegaly. Ectatic descending aorta. ABDOMEN: Liver: Interval growth of the hypoattenuating lesion in segment 6, measuring 1.3 cm, previously 0.4 cm. Gallbladder: Absent. Biliary ducts: Significant extrahepatic biliary dilation. Pancreas: No ductal dilation. Spleen: Size is within normal limits. Adrenal Glands: No adrenal nodules. Kidneys and Ureters: No hydronephrosis. No solid mass. No complex renal cystic lesion which requires follow up. Stomach and Bowel: Normal colonic caliber, without significant wall thickening. Large colonic stool load. No abnormal wall thickening to suggest obstructive mass or stercoral colitis. Peritoneum: No abnormal intraperitoneal fluid. No free air. Ventral Wall: No hernia. Abdominal Nodes: No retroperitoneal or mesenteric adenopathy by size criteria. Vessels: Aorta and inferior vena cava are normal in size. PELVIS: Pelvic Organs: Unremarkable. Bladder: Bladder wall diverticula. Pelvic Nodes: No enlarged lymph nodes. Miscellaneous: No inguinal hernias are seen. Bones: No aggressive osseous abnormality. Osteoporosis. Biconcave compression deformities at all thoracolumbar levels. IMPRESSION: Large colonic stool load. No evidence of stercoral colitis. Growing hypoattenuating liver lesion . Consider evaluation with outpatient ultrasound to exclude a solid mass. Other chronic findings as above. MDM Narrative Medical decision making narrative: Dr Howell: Received turned over. Review patient's history and physical exam. CT scan of the abdomen and pelvis shows a large stool burden in the colon. She does have a distended abdomen but it is soft and is not tender. She does not remember the last time that she had a bowel movement. We did discuss the use of laxatives at home. Initially I did not realize that she was already being treated for urinary tract infection so she was given a dose of Keflex here in the ER and a prescription was prescribed to her. Once I was informed that she is currently on antibiotics we will have her continue those antibiotics and not changed anything new. No indication for surgical consultation. No indication for admission to the hospital. She was tolerating oral intake. She was given return precautions. She expressed understanding and agreement. Discharge Plan Departure Patient Disposition: Home Clinical Impression: Acute UTI, Constipation, Back pain Instructions: DI for Urinary Tract Infection (UTI), DI for Constipation Activity Restrictions/Additional Instructions: The urinalysis today his concerning for urinary tract infection. Your 1st dose of antibiotics was given here in the emergency department and a printed prescription was given to be picked up at the pharmacy of her choice. The CT scan today also shows a very large colonic stool burden that would be consistent with constipation. Recommend that she take MiraLax 2 times a day until she has a bowel movement. She then can use it as needed afterwards. Return to the emergency department for new symptoms. Prescriptions: New cephalexin 500 mg capsule 500 mg PO BID 5 Days Qty: 10 0RF polyethylene glycol 3350 [Miralax] 17 gram/dose powder 17 g PO BID PRN (Reason: constipation) Qty: 510 0RF No Action lisinopril 20 mg tablet 40 mg PO DAILY Qty: 180 3RF Hold Instructions: unclear if still needed Rx Instructions: Take 2 tabs by mouth each night at bedtime for hypertension, check BP monthly please rosuvastatin [Crestor] 5 mg tablet 5 mg PO DAILY Qty: 90 3RF Rx Instructions: Take 1 tab daily to prevent stroke omeprazole 20 mg capsule,delayed release(DR/EC) 20 mg PO DAILY Qty: 90 3RF Rx Instructions: Take 1 capsule/tab by mouth daily lactulose 20 gram/30 mL solution 20 ml PO DAILY Qty: 1200 7RF Rx Instructions: HOLD for diarrhea Ensure Liquid 1 ea PO BID 30 Days Qty: 31802 11RF Rx Instructions: 2 ensure drinks daily, dispense 1mo supply x one year prefers chocolate flavor beverage amlodipine 5 mg tablet 5 mg PO BID Qty: 180 3RF Hold Instructions: unclear if still needed Rx Instructions: Take 1 tab twice per day for hypertension, take BP monthly please alendronate [Fosamax] 70 mg tablet 70 mg PO QWEEK Qty: 12 3RF Rx Instructions: takes on Fridays acetaminophen 500 mg capsule 1,000 mg PO TID PRN (Reason: pain or fever) Qty: 270 10RF Rx Instructions: Take 2 caps twice daily NTE 3000mg/24 hours aspirin [Adult Low Dose Aspirin] 81 mg tablet,delayed release (DR/EC) 81 mg PO DAILY Qty: 90 3RF calcium carbonate [Antacid Ext Str (calcium carb)] 300 mg (750 mg) tablet,chewable 600 mg PO BID Qty: 120 12RF Rx Instructions: Take 2 tabs with Vitamin D3 2000iu twice daily for bone health cholecalciferol (vitamin D3) 50 mcg (2,000 unit) capsule 50 mcg PO BID Qty: 180 3RF Rx Instructions: Take twice daily with calcium Azo Urinary Pain Relief Maximum Strength Tablets or Uricalm 2 tab PO TID PRN (Reason: urinary pain) Qty: 1 0RF Rx Instructions: Azo or Uri-calm to be purchased over the counter by nurse/tech at [facility]. Not a prescription medication Follow package directions: Take two (2) tablets three (3) times daily for up to two days. Take with a full glass of water, with or after meals as needed. (DME) Aerochamber MV Spacer See Rx Instructions .ROUTE .MEDSUPPLY Qty: 1 0RF Rx Instructions: As directed Disabled Parking Permit See Rx Instructions .ROUTE .COMPLEX Qty: 1 0RF Rx Instructions: I find this patient to be medically disabled and qualify for disabled parking as indicated and signed on the accompanying disabled parking application for individuals. (DME) Blood Pressure Check See Rx Instructions .ROUTE .MEDSUPPLY Rx Instructions: Take blood pressure daily call for SBP >170 or DBP >110 Disabled Parking Permit packet 1 ea Not Applicable DIRECTED cefdinir 300 mg capsule 300 mg PO BID Qty: 10 0RF Referrals: Dasia Peters ARNP [Primary Care Provider] - Stand Alone Forms: Patient Portal/API
--- NOTE | 2023-08-01 17:29 | DI.RAD.S_ITS ---
PROCEDURE: XR CHEST 1V INDICATIONS: coarse lungs/hypoxia TECHNIQUE: One view of the chest was acquired. COMPARISON: [facility], ELINA, XR CHEST 1V, 01/26/2023, 8:00. [facility], CR, XR CHEST 1V, 04/04/2022, 11:22. FINDINGS: Surgical changes and devices: None. Lungs and pleura: Lungs are clear. No pleural effusions or pneumothorax. Mediastinum: Mediastinal contours appear normal. Heart size is normal. Bones and chest wall: No suspicious bony lesions. Overlying soft tissues appear unremarkable. IMPRESSION: No acute cardiopulmonary abnormality is seen. Dictated by: Dillon العلي M.D. on 08/01/2023 at 17:54 Approved by: Dillon العلي M.D. on 08/01/2023 at 17:54
--- NOTE | 2023-08-01 17:36 | DI.CT.S_ITS ---
PROCEDURE: CT ABDOMEN PELVIS W CON INDICATIONS: back pain, abd distended, no BM x 3 days. TECHNIQUE: After the administration of intravenous contrast, axial sections acquired from the lung bases to the pubic symphysis. Coronal and sagittal reformats were performed. For radiation dose reduction, the following was used: automated exposure control, adjustment of mA and/or kV according to patient size. COMPARISON: [facility], CT, CT ABDOMEN PELVIS W CON, 01/02/2018, 10:36. FINDINGS: Image quality: Diagnostic. Lower Chest: Cardiomegaly. Ectatic descending aorta. ABDOMEN: Liver: Interval growth of the hypoattenuating lesion in segment 6, measuring 1.3 cm, previously 0.4 cm. Gallbladder: Absent. Biliary ducts: Significant extrahepatic biliary dilation. Pancreas: No ductal dilation. Spleen: Size is within normal limits. Adrenal Glands: No adrenal nodules. Kidneys and Ureters: No hydronephrosis. No solid mass. No complex renal cystic lesion which requires follow up. Stomach and Bowel: Normal colonic caliber, without significant wall thickening. Large colonic stool load. No abnormal wall thickening to suggest obstructive mass or stercoral colitis. Peritoneum: No abnormal intraperitoneal fluid. No free air. Ventral Wall: No hernia. Abdominal Nodes: No retroperitoneal or mesenteric adenopathy by size criteria. Vessels: Aorta and inferior vena cava are normal in size. PELVIS: Pelvic Organs: Unremarkable. Bladder: Bladder wall diverticula. Pelvic Nodes: No enlarged lymph nodes. Miscellaneous: No inguinal hernias are seen. Bones: No aggressive osseous abnormality. Osteoporosis. Biconcave compression deformities at all thoracolumbar levels. IMPRESSION: Large colonic stool load. No evidence of stercoral colitis. Growing hypoattenuating liver lesion . Consider evaluation with outpatient ultrasound to exclude a solid mass. Other chronic findings as above. Dictated by: Dillon العلي M.D. on 08/01/2023 at 18:33 Approved by: Dillon العلي M.D. on 08/01/2023 at 18:36
[2023-08-01 17:49] LABS: Add Manual Diff / Slide Review NO; Basophils Absolute Auto 100 /uL (0-100); Basophils Percent Auto 0.5 % (0-2); Eosinophils Absolute Auto 200 /uL (0-450); Eosinophils Percent Auto 1.7 % (2-4); Hematocrit 42.8 % (36-46); Lymphocytes Absolute Auto 2500 /uL (1100-4500); Lymphocytes Percent Auto 21.2 % (25-40); Mean Corpuscular HGB Conc 32.8 % (30-36); Mean Corpuscular Volume 88.3 fL (80-100); Monocytes Absolute Auto 1500 /uL (0-900); Monocytes Percent Auto 12.4 % (3-14); Neutrophils Absolute Auto 7500 /uL (1500-7000); Neutrophils Percent Auto 64.2 % (50-75); Platelet Count 343 X10^3/uL (150-400); Red Blood Cell Count 4.85 X10^6/uL (4.0-5.2); Red Cell Distribution Width 15.5 % (11.6-14.8); White Blood Cell Count 11.7 X10^3/uL (4.5-11.0)
[2023-08-01] MEDS: ACETAMINOPHEN IV 1,000 MG/100 ML VIAL 400 MG IV (17:49)
[2023-08-01 18:00] LABS: Alanine Aminotransferase 20 IU/L (<35); Albumin 4.3 g/dL (3.5-5.0); Albumin Globulin Ratio 1.3 (1.0-2.8); Alkaline Phosphatase 53 U/L (38-126); BUN Creatinine Ratio 35.1 (6-22); Bilirubin Total 0.9 mg/dL (0.2-1.3); Blood Urea Nitrogen 26 mg/dL (7-17); Calcium 9.8 mg/dL (8.4-10.2); Carbon Dioxide 23 mmol/L (22-32); Chloride 99 mmol/L (98-107); Estimated Glomerular Filt Rate > 60 mL/min (>60); Globulin 3.3 g/dL (1.7-4.1); Glucose 104 mg/dL (80-110); Lipase 59 U/L (23-300); Sodium 131 mmol/L (137-145); Total Protein 7.6 g/dL (6.3-8.2)
[2023-08-01 18:01] LABS: HEMOLYSIS 111 (0-50)
[2023-08-01 18:02] LABS: Aspartate Aminotransferase 48 IU/L (14-36); Potassium 4.9 mmol/L (3.4-5.1)
[2023-08-01 19:41] LABS: Urine Volume 10mL (spun)
[2023-08-01 19:50] LABS: Bacteria Urine Occasional (0-1); RBC Urine None Seen (0-5/HPF); Squamous Epithelial Cell Urine 1-5 /HPF (0-5/HPF); WBC Urine 0-1/HPF (0-5/HPF)
[2023-08-01 19:51] LABS: Culture Indicated Urine Specimen Cultured
[2023-08-01] MEDS: cephALEXin 250 MG CAPSULE 500 MG PO (20:03)
== END 2023-08-01 20:18 | disposition home or self-care (01) ==
PROVIDERS: Emergency Medicine; Emergency Provider Emergency Medicine; PCP Nurse Practitioner
DX: N39.0 Urinary tract infection, site not specified (principal); K59.00 Constipation, unspecified; M54.50 Low back pain, unspecified
CPT/HCPCS: 71045; 74177; 80053; 81003; 81015; 83690; 85025; 87077; 87086; 96365; 99284; J0136; Q9967

== ENCOUNTER 2023-08-03 00:18 | Emergency (ER) | payer OTHER, MEDICAID, SELFPAY ==
[2023-01-26 10:41] VITALS: BMI 19.2
[2023-08-03 00:20] VITALS: BP 183/112; PULSE 98; O2SAT 92
--- NOTE | 2023-08-03 00:20 | ED_ITS ---
HPI - Fall General Chief Complaint: Fall Stated Complaint: GLF hit head Time Seen by Provider: 08/03/23 00:19 Source: patient, EMS, RN notes reviewed and old records reviewed Mode of arrival: EMS Limitations: no limitations History of Present Illness HPI Narrative: 77-year-old female with COPD, former smoker, chronic constipation, hypertension, prior stroke who lives at [facility]. Patient was trying to get to her bed to go to sleep she put her weight on an end table which flipped over and she fell hitting the back of her head. Patient states it does not hurt. She did not lose consciousness. No neck or back pain. She denies chest pain or shortness of breath. Denies any nausea or vomiting, she states she did have a bowel movement earlier today. She was seen 2 days ago for back pain and no bowel movements. Patient states no injuries otherwise. She is not anticoagulated. She is known osteoporosis and multiple compression fractures in her thoracolumbar spine. Patient states she has no complaints. EMS performed lift assist and then asked if patient would like to go to the ER and she stated she would. Related Data Home Medications Medication Instructions Recorded Confirmed Disabled Parking Permit 1 ea Not Applicable DIRECTED 04/04/22 06/25/23 Blood Pressure Check 06/25/23 06/25/23 Previous Rx's Medication Instructions Recorded inhalational spacing device #1 ea 06/07/19 (Aerochamber MV spacer) Disabled Parking Permit See Rx Instructions .Route 10/23/22 .COMPLEX #1 unit acetaminophen 500 mg capsule 1,000 mg (2 x 500 mg) PO TID PRN 06/24/23 pain or fever #270 caps alendronate 70 mg tablet (Fosamax) 70 mg PO QWEEK #12 tabs 06/24/23 amlodipine 5 mg tablet 5 mg PO BID #180 tabs 06/24/23 aspirin 81 mg tablet,delayed 81 mg PO DAILY #90 tabs 06/24/23 release (Adult Low Dose Aspirin) calcium carbonate 300 mg (750 mg) 600 mg (2 x 300 mg (750 mg)) PO 06/24/23 chewable tablet (Antacid Extra BID #120 tabs Strength (calcium carb)) cholecalciferol (vitamin D3) 50 50 mcg PO BID #180 caps 06/24/23 mcg (2,000 unit) capsule food supplemt, lactose-reduced 1 ea PO BID 30 days #14,220 mL 06/24/23 (Ensure oral liquid) lactulose 20 gram/30 mL oral 20 ml PO DAILY #1,200 mL 06/24/23 solution lisinopril 20 mg tablet 40 mg (2 x 20 mg) PO DAILY #180 06/24/23 tabs omeprazole 20 mg capsule,delayed 20 mg PO DAILY #90 caps 06/24/23 release rosuvastatin 5 mg tablet (Crestor) 5 mg PO DAILY #90 tabs 06/24/23 cefdinir 300 mg capsule 300 mg PO BID #10 caps 07/29/23 Azo Urinary Pain Relief Maximum 2 tab PO TID PRN urinary pain #1 07/30/23 Strength Tablets or Uricalm pkg cephalexin 500 mg capsule 500 mg PO BID 5 days #10 caps 08/01/23 polyethylene glycol 3350 17 17 g PO BID PRN constipation #510 08/01/23 gram/dose oral powder (Miralax) grams Allergies Allergy/AdvReac Type Severity Reaction Status Date / Time hydromorphone [HYDROMORPHONE] AdvReac Unknown Hallucinati Verified 07/29/23 12:11 ons Review of Systems Review of Systems ROS Unobtainable: All systems reviewed & are unremarkable except as noted in HPI and below Patient History Medical History Edentulous History of stroke Frailty syndrome in geriatric patient FRAZIER (dyspnea on exertion) Advance care planning Osteoporosis Osteopenia Tobacco abuse Chronic constipation Sebaceous cyst Abdominal pain Urinary frequency History of seizure (Unknown) Hx of gastric ulcer (08/2016) Vitamin B12 deficiency (Unknown) Chronic back pain (Unknown) Hypercholesterolemia (Unknown) Hypertension (Unknown) Dizziness (11/05/16) Seizure disorder (09/30/16) Perforated viscus (09/03/16) Cobalamin deficiency (01/11/16) Excessive daytime sleepiness (01/11/16) Seborrheic keratosis (11/23/15) Pure hypercholesterolemia (11/23/15) History of stroke (11/23/15) Constipation (11/23/15) Bilateral low back pain without sciatica (11/23/15) 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) Surgical History Anesthesia History of colonoscopy History of partial hysterectomy (~1985) Status post cholecystectomy Family History Mother Stroke Hypertension Alcoholism Seizure Father Alcoholism Sister Cancer Social History household members: none Smoking Status: Former smoker alcohol intake: never substance use type: does not use Smoking Status: Former smoker alcohol intake frequency: 0-2 drinks per day Substance Use Type: does not use Exam Narrative Exam Narrative: GEN: Patient appears in mild distress. HEAD: Hematoma on the posterior scalp, no raccoon/Boone sign. NECK: Nontender, painless range of motion, trachea midline Negative Nexus criteria, is no midline line tenderness, distracting injury, altered mental status, neuro deficit, recent EtOH. EYES: PERRLA, EOMI ENT: External inspection normal, trachea is midline, TM's are normal no hemotypanum, Nares are clear, no septal hematoma, no dental or oral injury, airway is normal and with normal occlusion, No bony tenderness RESP: Chest is nontender and has symmetric movement, no ecchymosis, breath sounds are normal no crackles, wheezes or rales CVS: Heart sounds are normal, no murmur noted, No JVD. ABG/GI: Nontender, distended but soft, normal bowel sounds, no distention, no organomegaly, pelvic rock is the negative NEURO: Oriented AOx3, neuro is grossly intact, sensation and motor is normal all 4 extremities moving, cranial nerves II through XII are intact, GCS is 15 PSYCH: Normal mood and affect SKIN: Intact, warm and dry, no crepitus and without decubitus BACK: No CVA tenderness, no vertebral tenderness, no step-off's, no crepitus EXT: Atraumatic, hips nontender, patient has normal range of motion without any pain. Patient has various areas of ecchymosis on her upper extremities appear to be in various stages of healing. 2+ radial pulses upper and lower Initial Vital Signs Initial Vital Signs: Vital Signs Pulse Rate 98 H 08/03/23 00:20 Blood Pressure 183/112 H 08/03/23 00:20 Pulse Oximetry 92 08/03/23 00:20 Course Orders Ordered: ED Orders 01/21/24 00:26 CT cervical spine wo con Stat CT head/brain wo con Stat Vital Signs Vital signs: Vital Signs - 8 hr 08/03/23 00:20 08/03/23 00:20 08/03/23 00:22 Temperature 97.7 F Pulse Rate 98 H 96 H Respiratory Rate 19 Blood Pressure 183/112 H 183/112 H Pulse Oximetry 92 91 Oxygen Delivery Method Room Air 08/03/23 00:30 08/03/23 00:30 08/03/23 00:51 Temperature Pulse Rate 82 Respiratory Rate Blood Pressure 156/94 H 188/100 H Pulse Oximetry 91 Oxygen Delivery Method 08/03/23 00:51 08/03/23 01:01 08/03/23 01:01 Temperature Pulse Rate 87 82 Respiratory Rate Blood Pressure 152/85 H Pulse Oximetry 91 92 Oxygen Delivery Method 08/03/23 01:30 08/03/23 01:30 Temperature Pulse Rate 85 Respiratory Rate 18 Blood Pressure 157/95 H Pulse Oximetry 91 Oxygen Delivery Method MDM - Fall Imaging Data CT scan - head: Radiologist's Impression: [place] [address] CT Scan Report Signed Patient: Niecy Rivera MR#: [id number] : 1945 Acct:[id number] Age/Sex: 77 / F Date of Service: 08/03/23 Loc: ED Accession Number: [id number] Procedure: CT head/brain wo con Ordering Provider: Yudi Fall D.O. PROCEDURE: CT HEAD/BRAIN WO CON INDICATIONS: fall, hit head, large hematoma posterior scalp TECHNIQUE: Noncontrast 4.5 mm thick angled axial sections acquired from the foramen magnum to the vertex, with coronal and sagittal reformats. For radiation dose reduction, the following was used: automated exposure control, adjustment of mA and/or kV according to patient size. COMPARISON: [facility], CT, CT HEAD/BRAIN WO CON, 02/25/2020, 12:46. [facility], CT, HEAD WITHOUT CONTRAST, 09/09/2013, 18:18. FINDINGS: Image quality: Diagnostic. CSF spaces: Basal cisterns are patent. No extra-axial fluid collections. The ventricles are symmetric in size and shape. Brain: No intracranial bleeds or masses. There is cerebral volume loss for age, with resultant ventricular and sulcal prominence. There are periventricular and deep white matter chronic small vessel ischemic changes. There is intracranial internal carotid artery atherosclerosis. Skull and face: Calvarium and visualized facial bones appear intact, without suspicious lesions. Focal soft tissue swelling is seen at the right occipital parietal scalp. Sinuses: Visualized sinuses and mastoids are clear. IMPRESSION: No intracranial hemorrhage. Moderate microvascular atherosclerotic change in the deep white matter of each hemisphere. Brain parenchymal atrophy. Scalp contusion right occipital parietal area. No underlying skull fracture. Dictated by: Joe Louise M.D. on 08/03/2023 at 1:18 Approved by: Joe Louise M.D. on 08/03/2023 at 1:19 CT - cervical spine: Radiologist's Impression: [place] [address] CT Scan Report Signed Patient: Niecy Rivera MR#: [id number] : 1945 Acct:[id number] Age/Sex: 77 / F Date of Service: 08/03/23 Loc: ED Accession Number: [id number] Procedure: CT cervical spine wo con Ordering Provider: Yudi Fall D.O. PROCEDURE: CT CERVICAL SPINE WO CON INDICATIONS: fall, hit head, large hematoma posterior scalp TECHNIQUE: Noncontrast 3 mm thick sections acquired from the skull base to the T4 level. Sagittal and coronal reformats were then constructed. For radiation dose reduction, the following was used: automated exposure control, adjustment of mA and/or kV according to patient size. COMPARISON: [facility], CT, CT CHEST ABD PEL WO CON, 04/04/2022, 12:49. [facility], CR, XR CHEST 1V, 08/01/2023, 17:37. FINDINGS: Image quality: Excellent. Bones: No fractures or dislocations. Visualized superior ribs are intact. Soft tissues: Prevertebral soft tissues are normal in thickness. No paravertebral hematomas. No apical pneumothoraces. IMPRESSION: No trauma found. Dictated by: Joe Louise M.D. on 08/03/2023 at 1:19 Approved by: Joe Louise M.D. on 08/03/2023 at 1:22 MDM Narrative Medical decision making narrative: 77-year-old female no anticoagulants, no loss of consciousness does not have other red flags but based on her frailty, known multiple thoracolumbar compression fractures felt appropriate to have head CT with her large hematoma and CT C-spine. She has no complaints other fall she states she would put her weight on her end table it gave way and she fell. Head CT is negative for bleed, moderate microvascular atherosclerotic change in the deep white matter beach hemisphere, brain parenchymal atrophy. Scalp contusion right occipital parietal area. No underlying skull fracture. C-spine CT no fractures or dislocation, superior ribs are intact. Patient does not other acute changes or complaints currently. [place] and appropriate for discharge home. Patient notes that she has had bowel movements since yesterday when she was here, she has no complaints of back pain currently. Discharge Plan Departure Patient Disposition: Home Clinical Impression: Hematoma of scalp, Fall Instructions: How to Prevent Falls Activity Restrictions/Additional Instructions: Follow-up as needed. Your imaging does not show any bleed or significant changes to the bone. You do have a hematoma on your scalp. You may take your regular prescribed home medications. Please return for severe headaches, alterations in mental status, new neck or back pain, chest pain or shortness of breath, persistent vomiting, new numbness, tingling or weakness or other new or concerning changes. Prescriptions: No Action lisinopril 20 mg tablet 40 mg PO DAILY Qty: 180 3RF Hold Instructions: unclear if still needed Rx Instructions: Take 2 tabs by mouth each night at bedtime for hypertension, check BP monthly please rosuvastatin [Crestor] 5 mg tablet 5 mg PO DAILY Qty: 90 3RF Rx Instructions: Take 1 tab daily to prevent stroke omeprazole 20 mg capsule,delayed release(DR/EC) 20 mg PO DAILY Qty: 90 3RF Rx Instructions: Take 1 capsule/tab by mouth daily lactulose 20 gram/30 mL solution 20 ml PO DAILY Qty: 1200 7RF Rx Instructions: HOLD for diarrhea Ensure Liquid 1 ea PO BID 30 Days Qty: 47074 11RF Rx Instructions: 2 ensure drinks daily, dispense 1mo supply x one year prefers chocolate flavor beverage amlodipine 5 mg tablet 5 mg PO BID Qty: 180 3RF Hold Instructions: unclear if still needed Rx Instructions: Take 1 tab twice per day for hypertension, take BP monthly please alendronate [Fosamax] 70 mg tablet 70 mg PO QWEEK Qty: 12 3RF Rx Instructions: takes on Fridays acetaminophen 500 mg capsule 1,000 mg PO TID PRN (Reason: pain or fever) Qty: 270 10RF Rx Instructions: Take 2 caps twice daily NTE 3000mg/24 hours aspirin [Adult Low Dose Aspirin] 81 mg tablet,delayed release (DR/EC) 81 mg PO DAILY Qty: 90 3RF calcium carbonate [Antacid Ext Str (calcium carb)] 300 mg (750 mg) tablet,chewable 600 mg PO BID Qty: 120 12RF Rx Instructions: Take 2 tabs with Vitamin D3 2000iu twice daily for bone health cholecalciferol (vitamin D3) 50 mcg (2,000 unit) capsule 50 mcg PO BID Qty: 180 3RF Rx Instructions: Take twice daily with calcium Azo Urinary Pain Relief Maximum Strength Tablets or Uricalm 2 tab PO TID PRN (Reason: urinary pain) Qty: 1 0RF Rx Instructions: Azo or Uri-calm to be purchased over the counter by nurse/tech at [facility]. Not a prescription medication Follow package directions: Take two (2) tablets three (3) times daily for up to two days. Take with a full glass of water, with or after meals as needed. (DME) Aerochamber MV Spacer See Rx Instructions .ROUTE .MEDSUPPLY Qty: 1 0RF Rx Instructions: As directed Disabled Parking Permit See Rx Instructions .ROUTE .COMPLEX Qty: 1 0RF Rx Instructions: I find this patient to be medically disabled and qualify for disabled parking as indicated and signed on the accompanying disabled parking application for individuals. (DME) Blood Pressure Check See Rx Instructions .ROUTE .MEDSUPPLY Rx Instructions: Take blood pressure daily call for SBP >170 or DBP >110 Disabled Parking Permit packet 1 ea Not Applicable DIRECTED cefdinir 300 mg capsule 300 mg PO BID Qty: 10 0RF cephalexin 500 mg capsule 500 mg PO BID 5 Days Qty: 10 0RF polyethylene glycol 3350 [Miralax] 17 gram/dose powder 17 g PO BID PRN (Reason: constipation) Qty: 510 0RF Referrals: Dasia Peters ARNP [Primary Care Provider] - Stand Alone Forms: Patient Portal/API
[2023-08-03 00:22] VITALS: BP 183/112; PULSE 96; RESP 19; TEMP 36.5; O2SAT 91; BMI 18.1
--- NOTE | 2023-08-03 00:26 | DI.CT.S_ITS ---
PROCEDURE: CT CERVICAL SPINE WO CON INDICATIONS: fall, hit head, large hematoma posterior scalp TECHNIQUE: Noncontrast 3 mm thick sections acquired from the skull base to the T4 level. Sagittal and coronal reformats were then constructed. For radiation dose reduction, the following was used: automated exposure control, adjustment of mA and/or kV according to patient size. COMPARISON: , CT, CT CHEST ABD PEL WO CON, 04/04/2022, 12:49. , CR, XR CHEST 1V, 08/01/2023, 17:37. FINDINGS: Image quality: Excellent. Bones: No fractures or dislocations. Visualized superior ribs are intact. Soft tissues: Prevertebral soft tissues are normal in thickness. No paravertebral hematomas. No apical pneumothoraces. IMPRESSION: No trauma found. Dictated by: Joe Louise M.D. on 08/03/2023 at 1:19 Approved by: Joe Louise M.D. on 08/03/2023 at 1:22
--- NOTE | 2023-08-03 00:26 | DI.CT.S_ITS ---
PROCEDURE: CT HEAD/BRAIN WO CON INDICATIONS: fall, hit head, large hematoma posterior scalp TECHNIQUE: Noncontrast 4.5 mm thick angled axial sections acquired from the foramen magnum to the vertex, with coronal and sagittal reformats. For radiation dose reduction, the following was used: automated exposure control, adjustment of mA and/or kV according to patient size. COMPARISON: [facility], CT, CT HEAD/BRAIN WO CON, 02/25/2020, 12:46. [facility], CT, HEAD WITHOUT CONTRAST, 09/09/2013, 18:18. FINDINGS: Image quality: Diagnostic. CSF spaces: Basal cisterns are patent. No extra-axial fluid collections. The ventricles are symmetric in size and shape. Brain: No intracranial bleeds or masses. There is cerebral volume loss for age, with resultant ventricular and sulcal prominence. There are periventricular and deep white matter chronic small vessel ischemic changes. There is intracranial internal carotid artery atherosclerosis. Skull and face: Calvarium and visualized facial bones appear intact, without suspicious lesions. Focal soft tissue swelling is seen at the right occipital parietal scalp. Sinuses: Visualized sinuses and mastoids are clear. IMPRESSION: No intracranial hemorrhage. Moderate microvascular atherosclerotic change in the deep white matter of each hemisphere. Brain parenchymal atrophy. Scalp contusion right occipital parietal area. No underlying skull fracture. Dictated by: Joe Louise M.D. on 08/03/2023 at 1:18 Approved by: Joe Louise M.D. on 08/03/2023 at 1:19
[2023-08-03 00:30] VITALS: BP 156/94; PULSE 82; O2SAT 91
[2023-08-03 00:51] VITALS: BP 188/100; PULSE 87; O2SAT 91
[2023-08-03 01:01] VITALS: BP 152/85; PULSE 82; O2SAT 92
[2023-08-03 01:30] VITALS: BP 157/95; PULSE 85; RESP 18; O2SAT 91
== END 2023-08-03 02:00 | disposition home or self-care (01) ==
PROVIDERS: Emergency Provider Emergency Medicine; PCP Nurse Practitioner
DX: S00.03XA Contusion of scalp, initial encounter (principal); W18.30XA Fall on same level, unspecified, initial encounter
CPT/HCPCS: 70450; 72125; 99281; 99284

== ENCOUNTER → 2023-08-13 08:36 | Outpatient (CLI) | payer OTHER, MEDICAID, SELFPAY ==
[2023-08-06 11:15] VITALS: BMI 19.2
--- NOTE | 2023-08-13 08:37 | DI.US.S_ITS ---
PROCEDURE: US ABDOMEN LIMITED INDICATIONS: Abnormal CT abdomen/pelvis TECHNIQUE: Real-time scanning was performed of the abdominal and retroperitoneal organs, with image documentation. COMPARISON: [facility], US, US ABDOMEN LIMITED, 06/03/2019, 12:03. [facility], CT, CT ABDOMEN PELVIS W CON, 08/01/2023, 18:11. FINDINGS: Liver: Limited evaluation of the liver shows anechoic structure within inferior right hepatic lobe measures 1.4 x 1.1 x 1.2 cm in size and show no internal vascularity. Liver is normal in size and echotexture. No intrahepatic biliary ductal dilatation is seen. Miscellaneous: No free abdominal fluid. IMPRESSION: Simple appearing cyst in inferior right hepatic lobe as above. No solid appearing hepatic lesion. No intrahepatic biliary ductal dilatation. Dictated by: Fredrick Mckeon M.D. on 08/13/2023 at 23:04 Approved by: Fredrick Mckeon M.D. on 08/13/2023 at 23:05
== END ==
PROVIDERS: PCP Nurse Practitioner; Referring Provider Nurse Practitioner; Visit Provider Nurse Practitioner
DX: K76.89 Other specified diseases of liver (principal); R16.0 Hepatomegaly, not elsewhere classified
CPT/HCPCS: 76705

== ENCOUNTER 2024-01-01 13:01 | Emergency (ER) | payer OTHER, MEDICAID, SELFPAY ==
[2023-08-06 11:15] VITALS: BMI 19.2
[2024-01-01 13:21] VITALS: BP 153/93; PULSE 104; RESP 18; TEMP 37.4; O2SAT 87; BMI 16.2
--- NOTE | 2024-01-01 13:27 | DI.RAD.S_ITS ---
PROCEDURE: XR HIP W PEL IF DONE RT 2V INDICATIONS: pain TECHNIQUE: AP pelvis with lateral view(s) of the right hip(s). COMPARISON: None. FINDINGS: Bones: There is an impacted, comminuted, angulated right femoral neck fracture. The femoral head remains articulated in the acetabulum. Soft tissues: Dense atheromatous calcifications are present. There is a large amount of stool in the visualized colon. IMPRESSION: 1. Right femoral neck fracture. 2. Findings suspicious for fecal impaction. Dictated by: Carolina Nunez M.D. on 01/01/2024 at 14:45 Approved by: Carolina Nunez M.D. on 01/01/2024 at 14:46
--- NOTE | 2024-01-01 13:40 | PC.NURSE ---
Pt on intermittent O2--RA 87%; hospice nurse and daughter requesting pt to be on o2.
[2024-01-01 13:41] VITALS: O2SAT 91
--- NOTE | 2024-01-01 13:48 | ED_ITS ---
HPI - Extremity Injury (Lower) General Chief Complaint: Medical Clearance Stated Complaint: R hip/groin Px Time Seen by Provider: 01/01/24 13:27 Source: family and other Mode of arrival: EMS History of Present Illness HPI Narrative: Patient 78 year old female currently on hospice for end-stage COPD presenting today with right hip pain. Family reports that there was no fall she can typically take a few steps with a walker and she pivots. She lives over at [facility] with hospice involvement. She is currently in a position of comfort they are unable to move her. She has had methadone and morphine prior to arrival. Daughter in hospice nurse at bedside. Related Data Home Medications Medication Instructions Recorded Confirmed Disabled Parking Permit 1 ea Not Applicable DIRECTED 04/04/22 08/14/23 Blood Pressure Check 06/25/23 08/14/23 ok to crush meds 08/19/23 Previous Rx's Medication Instructions Recorded inhalational spacing device #1 ea 06/07/19 (Aerochamber MV spacer) Disabled Parking Permit See Rx Instructions .Route 10/23/22 .COMPLEX #1 unit acetaminophen 500 mg capsule 1,000 mg (2 x 500 mg) PO TID PRN 06/24/23 pain or fever #270 caps alendronate 70 mg tablet (Fosamax) 70 mg PO QWEEK #12 tabs 06/24/23 amlodipine 5 mg tablet 5 mg PO BID #180 tabs 06/24/23 aspirin 81 mg tablet,delayed 81 mg PO DAILY #90 tabs 06/24/23 release (Adult Low Dose Aspirin) calcium carbonate (Antacid Ext Str 600 mg (2 x 300 mg (750 mg)) PO 06/24/23 (calcium carb)) BID #120 tabs cholecalciferol (vitamin D3) 50 50 mcg PO BID #180 caps 06/24/23 mcg (2,000 unit) capsule food supplemt, lactose-reduced 1 ea PO BID 30 days #14,220 mL 06/24/23 (Ensure oral liquid) lisinopril 20 mg tablet 40 mg (2 x 20 mg) PO DAILY #180 06/24/23 tabs omeprazole 20 mg capsule,delayed 20 mg PO DAILY #90 caps 06/24/23 release rosuvastatin 5 mg tablet (Crestor) 5 mg PO DAILY #90 tabs 06/24/23 Azo Urinary Pain Relief Maximum 2 tab PO TID PRN urinary pain #1 07/30/23 Strength Tablets or Uricalm pkg Ok to CRUSH MEDS #1 ea 08/14/23 Oxygen See Rx Instructions .Route 08/14/23 .COMPLEX #2 cm docusate sodium 100 mg capsule 200 mg (2 x 100 mg) PO DAILY #60 08/14/23 caps lactulose 20 gram/30 mL oral 20 ml PO BID #1,200 mL 08/14/23 solution lorazepam 2 mg/mL oral concentrate 0.5 mg (0.25 mL) PO .COMPLEX PRN 08/14/23 pain, anxiety, SOB #30 mL oxycodone 10 mg tablet 10 mg PO Q4H PRN pain or shortness 08/14/23 of breath #120 tabs polyethylene glycol 3350 17 17 g PO BID constipation #510 grams 08/14/23 gram/dose oral powder (Miralax) sennosides 8.6 mg tablet (Natural 17.2 mg (2 x 8.6 mg) PO BID 08/14/23 Senna Laxative) constipation #60 tabs ondansetron 4 mg disintegrating 4 mg PO Q8H PRN nausea and 08/19/23 tablet vomiting #30 tabs fentanyl 50 mcg/hr transdermal 1 patch transdermal Q72H #5 ea 08/29/23 patch Allergies Allergy/AdvReac Type Severity Reaction Status Date / Time hydromorphone [HYDROMORPHONE] AdvReac Unknown Hallucinati Verified 08/05/23 15:57 ons Patient History Medical History (Updated 01/01/24 @ 14:58 by Tonya Baum DO) Liver mass Edentulous History of stroke Frailty syndrome in geriatric patient FRAZIER (dyspnea on exertion) Advance care planning Osteoporosis Osteopenia Tobacco abuse Chronic constipation Sebaceous cyst Abdominal pain Urinary frequency History of seizure (Unknown) Hx of gastric ulcer (08/2016) Vitamin B12 deficiency (Unknown) Chronic back pain (Unknown) Hypercholesterolemia (Unknown) Hypertension (Unknown) Dizziness (11/05/16) Seizure disorder (09/30/16) Perforated viscus (09/03/16) Cobalamin deficiency (01/11/16) Excessive daytime sleepiness (01/11/16) Seborrheic keratosis (11/23/15) Pure hypercholesterolemia (11/23/15) History of stroke (11/23/15) Constipation (11/23/15) Bilateral low back pain without sciatica (11/23/15) 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) Surgical History Anesthesia History of colonoscopy History of partial hysterectomy (~1985) Status post cholecystectomy Family History Mother Stroke Hypertension Alcoholism Seizure Father Alcoholism Sister Cancer Social History household members: none Smoking Status: Former smoker alcohol intake: never substance use type: does not use Smoking Status: Former smoker alcohol intake frequency: 0-2 drinks per day Substance Use Type: does not use Exam Initial Vital Signs Initial Vital Signs: Vital Signs Temperature 99.3 F 01/01/24 13:21 Pulse Rate 104 H 01/01/24 13:21 Respiratory Rate 18 01/01/24 13:21 Blood Pressure 153/93 H 01/01/24 13:21 Pulse Oximetry 87 L 01/01/24 13:21 Oxygen Delivery Method Room Air 01/01/24 13:21 GENERAL: Weak frail thin cachectic 78-year-old female, curled in position on right side RESPIRATORY: No respiratory distress, speaks in full sentences without difficulty EXTREMITIES: Normal range of motion, no clubbing or edema. Neurovascularly intact Tender in pelvis area, able to move feet NEUROLOGICAL: Cranial nerves II through XII grossly intact. Normal gait and speech. SKIN: Warm, dry, no petechiae, no rashes or lesions. Course Orders Ordered: ED Orders 01/01/24 13:27 XR hip w pel if done RT 2V Stat Discontinued Medications Morphine Sulfate (Morphine 4 Mg/Ml Inj) 4 mg SUBCUT NOW ONE Stop: 01/01/24 14:49 Last Admin: 01/01/24 14:57 Dose: 4 mg Documented By: SARAH Vital Signs Vital signs: Vital Signs - 8 hr 01/01/24 13:21 01/01/24 13:41 01/01/24 15:51 Temperature 99.3 F Pulse Rate 104 H 103 H Respiratory Rate 18 14 Blood Pressure 153/93 H 143/95 H Pulse Oximetry 87 L 91 92 Oxygen Delivery Method Room Air Nasal Cannula Nasal Cannula Oxygen Flow Rate 2 2 MDM - Extremity Injury (Lower) Imaging Data Extremity x-ray #1: Radiologist's Impression: PROCEDURE: XR HIP W PEL IF DONE RT 2V INDICATIONS: pain TECHNIQUE: AP pelvis with lateral view(s) of the right hip(s). COMPARISON: None. FINDINGS: Bones: There is an impacted, comminuted, angulated right femoral neck fracture. The femoral head remains articulated in the acetabulum. Soft tissues: Dense atheromatous calcifications are present. There is a large amount of stool in the visualized colon. IMPRESSION: 1. Right femoral neck fracture. 2. Findings suspicious for fecal impaction. Dictated by: Carolina Nunez M.D. on 01/01/2024 at 14:45 [facility] Narrative Medical decision making narrative: Patient is 78-year-old female currently on hospice presenting today with right hip pain. Unable to move out of certain position. Daughter at bedside along with hospice nurse. X-ray confirms right femoral neck fracture. Discussion with daughter at bedside in regards to goals of care. She does not want to pursue surgery which appropriate. We discussed increased rate of mortality he understands. Pain control only. Patient is given morphine here in the ED. I have personally called and spoke with Dr. Castro the hospice physician of hospice with the [facility] updated on patient's symptoms test results. Agrees with plan and will update pain medication as needed. [place] [facility] has been called to take patient back Discharge Plan Departure Patient Disposition: Home Clinical Impression: Closed fracture of right hip Activity Restrictions/Additional Instructions: *You have been diagnosed with right hip fracture *What to do: *Continue to take medications as directed Pain medication as directed by hospice *Follow up with your primary care provider in 2-3 days or call [phone] *Return to ER if you should have any new, worsening or concerning symptoms Prescriptions: No Action lisinopril 20 mg tablet 40 mg PO DAILY Qty: 180 3RF Hold Instructions: unclear if still needed Rx Instructions: Take 2 tabs by mouth each night at bedtime for hypertension, check BP monthly please rosuvastatin [Crestor] 5 mg tablet 5 mg PO DAILY Qty: 90 3RF Rx Instructions: Take 1 tab daily to prevent stroke omeprazole 20 mg capsule,delayed release(DR/EC) 20 mg PO DAILY Qty: 90 3RF Rx Instructions: Take 1 capsule/tab by mouth daily Ensure Liquid 1 ea PO BID 30 Days Qty: 15123 11RF Rx Instructions: 2 ensure drinks daily, dispense 1mo supply x one year prefers chocolate flavor beverage amlodipine 5 mg tablet 5 mg PO BID Qty: 180 3RF Hold Instructions: unclear if still needed Rx Instructions: Take 1 tab twice per day for hypertension, take BP monthly please alendronate [Fosamax] 70 mg tablet 70 mg PO QWEEK Qty: 12 3RF Rx Instructions: takes on Fridays acetaminophen 500 mg capsule 1,000 mg PO TID PRN (Reason: pain or fever) Qty: 270 10RF Rx Instructions: Take 2 caps twice daily NTE 3000mg/24 hours aspirin [Adult Low Dose Aspirin] 81 mg tablet,delayed release (DR/EC) 81 mg PO DAILY Qty: 90 3RF calcium carbonate [Antacid Ext Str (calcium carb)] 300 mg (750 mg) tablet,chewable 600 mg PO BID Qty: 120 12RF Rx Instructions: Take 2 tabs with Vitamin D3 2000iu twice daily for bone health cholecalciferol (vitamin D3) 50 mcg (2,000 unit) capsule 50 mcg PO BID Qty: 180 3RF Rx Instructions: Take twice daily with calcium Azo Urinary Pain Relief Maximum Strength Tablets or Uricalm 2 tab PO TID PRN (Reason: urinary pain) Qty: 1 0RF Rx Instructions: Azo or Uri-calm to be purchased over the counter by nurse/tech at [facility]. Not a prescription medication Follow package directions: Take two (2) tablets three (3) times daily for up to two days. Take with a full glass of water, with or after meals as needed. (DME) ok to crush meds See Rx Instructions .ROUTE .MEDSUPPLY Rx Instructions: Ok to crush meds ondansetron 4 mg tablet,disintegrating 4 mg PO Q8H PRN (Reason: nausea and vomiting) Qty: 30 2RF fentanyl 50 mcg/hr patch 72 hour 1 patch transdermal Q72H Qty: 5 0RF Rx Instructions: Apply 1 patch every 72 hours. STOP MORPHINE. Use Oxy ONLY for PRN breakthro ugh pain (DME) Aerochamber MV Spacer See Rx Instructions .ROUTE .MEDSUPPLY Qty: 1 0RF Rx Instructions: As directed Disabled Parking Permit See Rx Instructions .ROUTE .COMPLEX Qty: 1 0RF Rx Instructions: I find this patient to be medically disabled and qualify for disabled parking as indicated and signed on the accompanying disabled parking application for individuals. (DME) Blood Pressure Check See Rx Instructions .Route .MEDSUPPLY Rx Instructions: Take blood pressure daily call for SBP >170 or DBP >110 sennosides [Natural Senna Laxative] 8.6 mg tablet 17.2 mg PO BID Qty: 60 5RF Rx Instructions: 2 tabs twice per day for constipation, hold x24 hours for diarrhea lactulose 20 gram/30 mL solution 20 ml PO BID Qty: 1200 7RF Rx Instructions: HOLD for diarrhea polyethylene glycol 3350 [Miralax] 17 gram/dose powder 17 g PO BID Qty: 510 0RF Rx Instructions: 17 grams in 8 oz of liquid twice per day, hold x24 hours for diarrhea docusate sodium 100 mg capsule 200 mg PO DAILY Qty: 60 4RF Rx Instructions: Hold for diarrhea lorazepam 2 mg/mL concentrate 0.5 mg PO .COMPLEX PRN (Reason: pain, anxiety, SOB) Qty: 30 3RF Rx Instructions: 0.5 mg orally Every 2 hours as needed for SOB, pain, anxiety PRN; Oxygen See Rx Instructions .ROUTE .COMPLEX Qty: 2 0RF Rx Instructions: 2L via nasal cannula titrate to max dose of 4L to maintain O2 saturation under 95% (CO2 retainer); (DME) Ok to CRUSH MEDS See Rx Instructions .Route .MEDSUPPLY Qty: 1 0RF Rx Instructions: Ok to crush meds oxycodone 10 mg tablet 10 mg PO Q4H PRN (Reason: pain or shortness of breath) Qty: 120 0RF Rx Instructions: Ok to crush Disabled Parking Permit packet 1 ea Not Applicable DIRECTED Referrals: Miscellaneous,Doctor, MD [Primary Care Provider] - Stand Alone Forms: Patient Portal/API
[2024-01-01] MEDS: MORPHINE 4 MG/ML INJ SUBCUT (14:57)
--- NOTE | 2024-01-01 15:49 | PC.NURSE ---
Right hip injury/groin pain. unknown if pt fell. pt contracted and sensitive to movement.
[2024-01-01 15:51] VITALS: BP 143/95; PULSE 103; RESP 14; O2SAT 92
== END 2024-01-01 15:59 | disposition home or self-care (01) ==
PROVIDERS: Emergency Provider Emergency Medicine
DX: S72.001A Fracture of unspecified part of neck of right femur, initial encounter for closed fracture (principal); X58.XXXA Exposure to other specified factors, initial encounter
CPT/HCPCS: 73502; 96372; 99284; J2270